=== PATIENT | male | born 1960 | race African-American/Black ===

== ENCOUNTER 2019-05-16 16:22 | Inpatient (IN) ==
--- NOTE | 2019-05-16 16:53 | XRay Report ---
XR chest 1V portable CLINICAL HISTORY: Left-sided chest pain. COMPARISON STUDY: Chest radiograph April 12, 2019. FINDINGS: Lung volumes are normal. Lungs are clear. There is no pneumothorax or pleural effusion. Car diac size is normal. Mediastinal contours are normal. There is no evidence for pulmonary edema. Incid ental note is made of multiple old left-sided rib fractures. IMPRESSION: No acute cardiopulmonary findings. Electronically signed by: Ag Kowalski M.D. 05/16/2019 4:51 PM
[2019-05-16 17:01] LABS: Basophils # (auto) 0.04 K/uL (0-0.2); Basophils % (auto) 0.7 %; Eosinophils % (auto) 1.8 %; Hematocrit (blood only) 35.1 % (42-52); Immature Granulocytes # (auto) 0.01 K/uL (0.00-0.02); Immature Granulocytes % (auto) 0.2 %; Lymphocytes % (auto) 37.4 %; Mean Corpuscular Hemoglobin 27.8 pg (25-34); Mean Corpuscular Hgb Conc 34.2 g/dL (32-36); Mean Corpuscular Volume 81.4 fL (80-100); Mean Platelet Volume 9.3 fL (7.4-10.4); Monocytes % (auto) 7.1 %; Neutrophils # (auto) 2.96 K/uL (1.4-6.5); Neutrophils % (auto) 52.8 %; Platelet Count 222 K/uL (130-400); RDW Coefficient of Variation 14.5 % (11.5-14.5); Red Blood Count 4.31 M/uL (4.7-6.1); White Blood Count 5.61 K/uL (4.8-10.8)
[2019-05-16 17:22] LABS: Alanine Aminotransferase 31 U/L (12-78); Albumin Level 3.6 gm/dl (3.4-5.0); Aspartate Aminotransferase 15 U/L (15-37); BUN Creatinine Ratio 16.1 (10-20); Blood Urea Nitrogen 20 mg/dl (7-18); Calcium 8.8 mg/dl (8.5-10.1); Carbon Dioxide 26 mmol/L (21-32); Chloride 109 mmol/L (98-107); Est GFR (African American) 74.7; Est GFR (Non-African American) 64.5; Glucose 94 mg/dl (70-99); Sodium 140 mmol/L (136-145)
[2019-05-16 17:24] LABS: INR 1.2 (0.9-1.1); Partial Thromboplastin Ratio 1.1; Partial Thromboplastin Time 29.1 Seconds (21.0-31.0); Prothrombin Time 12.2 Seconds (9.0-12.0)
[2019-05-16 17:30] LABS: Alkaline Phosphatase 86 U/L (45-117); Bilirubin,Total 0.4 mg/dl (0.2-1); Globulin 3.7 gm/dl (2.5-4.0); Total Protein 7.3 gm/dl (6.4-8.2); Troponin I < 0.015 ng/ml (0-0.045)
--- NOTE | 2019-05-16 19:33 | History & Physical Report ---
Date of Service May 16, 2019 Assessment & Plan (1) GI bleed: This is a 58 yo M with a PMH of atrial fibrillation on coumadin and GERD from [facility] who presents with chest pain and melena. Please see Dr. Jacob's assessment and plan for details. (2) Chest pain: (3) Atrial fibrillation: (4) GERD (gastroesophageal reflux disease): History of Present Illness Chief Complaint: Chest pain, melena Primary Care Provider: [facility] This is a 58 yo M with a PMH of atrial fibrillation on coumadin and GERD from [facility] who presents with chest pain and melena. States that he has had constant left-sided chest pain for the past 3 weeks that has become progressively worse. Pain is exacerbated with deep inspiration and palpation. Also notes dark tarry stools for the past 2 weeks. Unable to quantify amount but states that they are frequent. Stopped his Coumadin 4 days ago due to bleeding but then took again yesterday thinking that it may alleviate chest pain. Also experiencing diffuse abdominal pain for the past week. Was started on pantoprazole at [place] on Monday to help with acid reflux/abdominal pain, per patient. States he has history of GI bleed in the remote past with multiple hospitalizations requiring blood transfusion. Is unsure what caused bleed in the past. Denies any fever, chills, lightheadedness, headache, visual changes, palpitations, shortness of breath, nausea, vomiting, dysuria, diarrhea, constipation or lower extremity swelling. Denies hematemesis or hematochezia. Denies NSAID use. Allergies Allergy/AdvReac Type Severity Reaction Status Date / Time No Known Allergies Allergy Unverified 05/16/19 18:34 Home Medications Home Medications Medication Instructions Recorded Confirmed Type latanoprost 1 drp OPHTHALMIC (EYE) HS 05/16/19 05/16/19 History metoprolol tartrate 12.5 mg PO BID 05/16/19 05/16/19 History pantoprazole 40 mg PO DAILY 05/16/19 05/16/19 History Past Med/Surg History Medical History Atrial fibrillation (Chronic) GERD (gastroesophageal reflux disease) (Chronic) GI bleed (Acute) Surgical History No history of previous surgery (Chronic) Family History Other Heart disease Social History Preferred Language: Icelandic Beliefs That Will Affect Care: None marital status: single Current Living Situation: Other Current Living Situation Comment: [facility] Feels Safe at Home: Yes Safety Concerns: Feels Safe At This Time Smoking Status: Never smoker Hx Alcohol Use: No Hx Substance Use: No Review of Systems Review of Systems: At least ten systems reviewed and negative except as noted in the HPI. Physical Exam Physical Exam: General Appearance: WD/WN, vitals as above, NAD, sitting up in bed, pleasant, conversing easily with intermittent grimacing Head: normocephalic, atraumatic Eyes: normal inspection, PERRL, conjunctivae normal, anicteric sclerae ENT: external ear and nose normal, oropharynx normal Neck: trachea midline, no thyromegaly normal visual inspection Respiratory: normal respiratory effort, lungs clear to auscultation, no wheeze, rales, rhonchi. Normal insp/exp effort, no accessory muscle use Cardiovascular: irregular rate & rhythm, no murmur appreciated, normal peripheral pulses. Vessels: no JVD or carotid bruit Chest: pain to palpation of left chest, normal inspection of chest Abdomen/GI: normal bowel sounds, soft, diffusely tender, no hepatosplenomegaly Extremities/Musculoskelatal: no cyanosis or clubbing, extremities motor strength 5/5 Neurologic: PERRL, EOMI, accommodation nl, no face palsy, no dysarthria CN's II-XI intact bilaterally and moves all extremities Psychiatric: A+Ox3, euthymic affect Skin: no rashes, normal color, warm/dry Results & Data Vital Signs (Past 12 Hours) Vital Signs Temp Pulse Resp BP Pulse Ox 05/16/19 17:30 87 18 98 05/16/19 17:00 71 19 97 05/16/19 16:39 36.7 C 80 18 124/74 98 05/16/19 16:34 81 20 97 05/16/19 16:30 101 H 19 124/74 98 Laboratory Results Short CBC 05/16/19 Range/Units 16:36 WBC 5.61 (4.8-10.8) K/uL Hgb 12.0 L (14.0-18.0) g/dL Hct 35.1 L (42-52) % Plt Count 222 (130-400) K/uL BMP 05/16/19 16:36 Sodium 140 Potassium 4.0 Chloride 109 H Carbon Dioxide 26 BUN 20 H Creatinine 1.22 Glucose 94 Calcium 8.8 Cardiac Enzymes 05/16/19 Range/Units 16:36 Troponin I < 0.015 (0-0.045) ng/ml Liver Function 05/16/19 Range/Units 16:36 Total Bilirubin 0.4 (0.2-1) mg/dl AST 15 (15-37) U/L ALT 31 (12-78) U/L Alkaline Phosphatase 86 (45-117) U/L Albumin 3.6 (3.4-5.0) gm/dl Diagnostic Findings CXR: IMPRESSION: No acute cardiopulmonary findings. ECG Rhythm: atrial fibrillation Supervising Physician Co-Signing Physician Notes IM ATTENDING : Patient seen and examined. History obtained from patient and records. Preceding documentation by Ms. Elizabeth William PA-C reviewed. FINAL ASSESSMENT AND PLAN as follows : U GIB Subacute (Patient gives history of intermittent dark stools for unrecalled amount of time even before initiation of Coumadin for A. fib last month) Differentials include : Gastritis, PUD, tumor Acute on chronic anemia secondary to above Baseline hemoglobin of 13 from last month Atypical chest pain A. fib, rate controlled Not on any rate controlled medications. Patient refusing Coumadin the last 4days. Past tobacco abuse OBS as per case management PCU IV PPI GI consult RE U GIB Anemia work-up Transfuse PRBC if hemoglobin less than 7 and/or for symptomatic anemia TTE RE chest pain Initiate Lopressor for rate control DVT prophylaxis. SCDs RE U GIB Full code
[2019-05-16] MEDS ORDERED: CONSULT PHARMACY STA (19:35)
[2019-05-16] MEDS: PANTOprazole 40 MG in SYRINGE 0 ML IV SCH (20:08)
[2019-05-16] MEDS ORDERED: NITROGLYCERIN SL 0.4 MG/TAB TAB SL STA (20:14)
[2019-05-16] MEDS ORDERED: NITROGLYCERIN SL 0.4 MG/TAB TAB ONE (20:16)
[2019-05-16 20:29] LABS: Hematocrit (blood only) 35.1 % (42-52); Hemoglobin 11.8 g/dL (14.0-18.0)
[2019-05-16] MEDS ORDERED: TRAMADOL HCL 50 MG TABLET PO STA (20:48)
[2019-05-16] MEDS ORDERED: OPTIRAY 320 125ml IV PRN (21:15)
--- NOTE | 2019-05-16 21:24 | Emergency Department Note ---
Entered by Vasu Sanders acting as a scribe for History of Present Illness General Chief complaint: Chest Pain Source: patient History of Present Illness Onset (ago): month(s) 1 Location: chest and left Pain Consistency: + intermittent Maximum Pain Intensity: 8 Quality: + sharp Associated symptoms: + other (dark stools) The patient is a 58 y/o male who presents to the ED w/ CC of intermittent, sharp, left sided chest pain beginning a month ago. The patient states his pain starts on the left side of his chest and radiates across to his left armpit. He reports if he pushes his chest up with his right hand, it alleviates his symptoms. The patient notes he has a history of a-fib and is on Coumadin and metoprolol. He states he stopped taking the Coumadin 4 days ago because of the dark stool and then took a dose this morning. The patient reports his last BM was yesterday, and it was black. He notes the [place] [facility] started him on Protonix a week ago. The patient states a history of rib fractures on the same side and GERD. He reports he has not been scoped in 8 years. Home Medications Home Medications Medication Instructions Recorded Confirmed Type latanoprost 1 drp OPHTHALMIC (EYE) HS 05/16/19 05/16/19 History metoprolol tartrate 12.5 mg PO BID 05/16/19 05/16/19 History pantoprazole 40 mg PO DAILY 05/16/19 05/16/19 History Allergies Allergy/AdvReac Type Severity Reaction Status Date / Time No Known Allergies Allergy Unverified 05/16/19 18:34 Past Med/Surg History Medical History Atrial fibrillation (Chronic) GERD (gastroesophageal reflux disease) (Chronic) GI bleed (Acute) Surgical History No history of previous surgery (Chronic) Family History Other Heart disease Social History Preferred Language: Czech Beliefs That Will Affect Care: None marital status: single Current Living Situation: Other Current Living Situation Comment: [facility] Feels Safe at Home: Yes Safety Concerns: Feels Safe At This Time Smoking Status: Never smoker Hx Alcohol Use: No Hx Substance Use: No Review of Systems See HPI for pertinent positives & negatives. and A total of 10 systems reviewed and were otherwise negative Physical Exam Vital Signs Vital Signs - 24 hr 05/16/19 16:30 05/16/19 16:34 05/16/19 16:39 Temperature 36.7 C Temperature Source Oral Sepsis Recent Fever Within 48 Hours No Sepsis Action Taken by Nursing No Action Required Pulse Rate 101 H 81 80 Pulse Rate from SpO2 Sensor 86 Respiratory Rate 19 20 18 Blood Pressure 124/74 124/74 Blood Pressure Mean 90 90 Pulse Oximetry 98 97 98 05/16/19 17:00 05/16/19 17:30 05/16/19 19:28 Temperature Temperature Source Sepsis Recent Fever Within 48 Hours Sepsis Action Taken by Nursing Pulse Rate 71 87 Pulse Rate from SpO2 Sensor 68 81 91 H Respiratory Rate 19 18 Blood Pressure Blood Pressure Mean Pulse Oximetry 97 98 95 05/16/19 19:30 Temperature Temperature Source Sepsis Recent Fever Within 48 Hours Sepsis Action Taken by Nursing Pulse Rate 86 Pulse Rate from SpO2 Sensor 77 Respiratory Rate 15 Blood Pressure 124/84 Blood Pressure Mean 97 Pulse Oximetry 98 Vital signs reviewed. General: Generally well-appearing 58 y/o male, in some distress. HEENT: No scleral icterus, PERRLA, neck supple. Atraumatic. Cardiovascular: Regular rate and rhythm, no extra sounds. Chest: Tenderness to palpation over the left chest wall. Pulmonary: Clear to auscultation bilaterally, normal work of breathing. Abdomen: Soft, nondistended, positive bowel sounds. Upper abdominal tenderness to palpation, no rebound or guarding Musculoskeletal: Atraumatic, no peripheral edema. Rectal: Guaiac positive melanotic stool. Neurologic: Patient awake alert and oriented x 3 Skin: Warm, dry, no rash Course 1657: Past medical records reviewed. The patient was evaluated in room C07 by the medical student under my supervision. A complete history and physical exam ination was performed. 1740: Past medical records reviewed. The patient was evaluated in room C07 by me. A complete history and physical examination was performed. 1840: I reviewed the patient's case with Elizabeth William PA-C, [facility] Hospitalist. He will evaluate the patient for further management. 1842: Upon reevaluation, the patient is resting comfortably. I discussed laboratory and radiographic results with him. He verbalized agreement of the treatment plan. The patient will be evaluated for further management and care. Administered Medications Acetaminophen (Tylenol) 650 mg PO Q4H PRN PRN Reason: Pain or Fever Stop: 06/15/19 22:54 Last Admin: 05/18/19 08:44 Dose: 650 mg Documented by: [id number] Acetaminophen/Butalbital/Caffeine (Fioricet) 1 tab PO Q4H PRN PRN Reason: Headache Stop: 06/17/19 10:43 Last Admin: 05/18/19 12:55 Dose: 1 tab Documented by: [id number] Gadobutrol (Gadavist 65ml) 6.5 ml IV ONCE PRN PRN Reason: Interaction Checking Stop: 05/24/19 16:26 Last Admin: 05/20/19 16:28 Dose: 6.5 ml Documented by: [id number] Glucose (Dex4 Glucose) 4 - 8 tabs PO UD PRN; Protocol PRN Reason: Hypoglycemia Protocol Stop: 06/19/19 08:50 Last Admin: 05/20/19 09:13 Dose: 4 tabs Documented by: [id number] Pantoprazole Sodium 40 mg/ (Syringe) 10 mls @ 5 mls/min IV BID TRISTA Stop: 06/15/19 19:59 Last Admin: 05/20/19 08:40 Dose: 5 mls/min Documented by: [id number] Admin: 05/19/19 20:29 Dose: 5 mls/min Documented by: [id number] Admin: 05/19/19 08:14 Dose: 5 mls/min Documented by: [id number] Admin: 05/18/19 20:37 Dose: 5 mls/min Documented by: [id number] Admin: 05/18/19 07:39 Dose: 5 mls/min Documented by: [id number] Admin: 05/17/19 20:57 Dose: 5 mls/min Documented by: [id number] Admin: 05/17/19 10:41 Dose: 5 mls/min Documented by: [id number] Admin: 05/16/19 20:08 Dose: 5 mls/min Documented by: [id number] Lactated Ringer's (Lr) 1,000 mls @ 50 mls/hr IV .Q20H TRISTA Stop: 06/15/19 20:14 Last Admin: 05/20/19 05:24 Dose: 50 mls/hr Documented by: [id number] Infusion: 05/20/19 05:23 Dose: 0 mls/hr Documented by: [id number] Admin: 05/19/19 09:17 Dose: 50 mls/hr Documented by: [id number] Infusion: 05/19/19 09:17 Dose: 50 mls/hr Documented by: [id number] Admin: 05/18/19 12:55 Dose: 50 mls/hr Documented by: [id number] Infusion: 05/18/19 12:55 Dose: 50 mls/hr Documented by: [id number] Admin: 05/17/19 20:56 Dose: 50 mls/hr Documented by: [id number] Infusion: 05/17/19 19:35 Dose: 50 mls/hr Documented by: [id number] Admin: 05/16/19 23:35 Dose: 50 mls/hr Documented by: [id number] Acetaminophen (Ofirmev) 1,000 mg in 100 mls @ 400 mls/hr IV Q8H PRN PRN Reason: Pain Stop: 06/17/19 13:26 Last Infusion: 05/20/19 08:01 Dose: 0 mls/hr Documented by: [id number] Admin: 05/20/19 07:46 Dose: 400 mls/hr Documented by: [id number] Infusion: 05/19/19 20:45 Dose: 0 mls/hr Documented by: [id number] Admin: 05/19/19 20:30 Dose: 400 mls/hr Documented by: [id number] Latanoprost (Xalatan Oph) 1 drops OP HS TRISTA Stop: 06/15/19 22:54 Last Admin: 05/19/19 20:29 Dose: 1 drops Documented by: [id number] Admin: 05/18/19 20:37 Dose: 1 drops Documented by: [id number] Admin: 05/17/19 20:56 Dose: 1 drops Documented by: [id number] Admin: 05/16/19 23:42 Dose: Not Given Documented by: [id number] Metoprolol Tartrate (Lopressor) 12.5 mg PO BID TRISTA Stop: 06/15/19 22:59 Last Admin: 05/20/19 08:41 Dose: 12.5 mg Documented by: [id number] Admin: 05/19/19 20:29 Dose: 12.5 mg Documented by: [id number] Admin: 05/19/19 08:13 Dose: Not Given Documented by: [id number] Admin: 05/18/19 20:37 Dose: 12.5 mg Documented by: [id number] Admin: 05/18/19 07:40 Dose: 12.5 mg Documented by: [id number] Admin: 05/17/19 20:56 Dose: 12.5 mg Documented by: [id number] Admin: 05/17/19 10:42 Dose: 12.5 mg Documented by: [id number] Admin: 05/16/19 23:42 Dose: 12.5 mg Documented by: [id number] Morphine Sulfate (Morphine Sulfate) 4 mg IV Q6H PRN PRN Reason: Pain Stop: 05/30/19 22:54 Last Admin: 05/20/19 03:59 Dose: 4 mg Documented by: [id number] Admin: 05/19/19 14:24 Dose: 4 mg Documented by: [id number] Admin: 05/19/19 08:15 Dose: 4 mg Documented by: [id number] Admin: 05/18/19 20:45 Dose: 4 mg Documented by: [id number] Admin: 05/17/19 18:37 Dose: 4 mg Documented by: [id number] Admin: 05/17/19 10:51 Dose: 4 mg Documented by: [id number] Admin: 05/17/19 01:04 Dose: 4 mg Documented by: [id number] Discontinued Medications Bisacodyl (Dulcolax) 20 mg PO ONE ONE Stop: 05/19/19 15:01 Last Admin: 05/19/19 14:23 Dose: 20 mg Documented by: [id number] Dextrose (Dextrose 50%) 50 ml IV NOW ONE Stop: 05/20/19 11:49 Last Admin: 05/20/19 11:58 Dose: 50 ml Documented by: [id number] Ioversol (Optiray 320 125ml) 118 ml IV ONCE PRN PRN Reason: Interaction Checking Stop: 05/20/19 21:14 Last Admin: 05/16/19 21:16 Dose: 118 ml Documented by: [id number] Nitroglycerin (Nitrostat) 0.4 mg SL NOW STA Stop: 05/16/19 20:15 Last Admin: 05/16/19 20:55 Dose: Not Given Documented by: [id number] Nitroglycerin (Nitrostat) Confirm Administered Dose 0.4 mg .ROUTE .STK-MED ONE Stop: 05/16/19 20:17 Last Admin: 05/16/19 20:18 Dose: 0.4 mg Documented by: [id number] Polyethylene Glycol/Electrolytes (Golytely) 8 dose PO TODAY@1500 TRISTA Stop: 05/20/19 08:00 Last Admin: 05/19/19 15:59 Dose: 16 dose Documented by: [id number] Tramadol HCl (Ultram) 25 mg PO NOW STA Stop: 05/16/19 20:49 Last Admin: 05/16/19 21:01 Dose: 25 mg Documented by: [id number] Medical Decision Making Differential Diagnosis Differential diagnosis includes etiologies such as diverticulosis, AVM, coagulopathy, colitis, inflammatory bowel disease, malignancy, Barby-Salgado tear, esophagitis, peptic ulcer disease, variceal bleed, gastritis, epistaxis, fissure, hemorrhoids, as well as others were entertained. Medical Records Attestation: I reviewed the patient's medical records. Home Medications Current Medication List: was personally reviewed by me Laboratory Data Attestation: I reviewed the patient's lab results. Result diagrams: 05/20/19 07:09 05/20/19 07:09 Lab Results 05/16/19 05/16/19 05/16/19 Range/Units 16:36 16:36 16:36 WBC 5.61 (4.8-10.8) K/uL RBC 4.31 L (4.7-6.1) M/uL Hgb 12.0 L (14.0-18.0) g/dL Hct 35.1 L (42-52) % MCV 81.4 (80-100) fL MCH 27.8 (25-34) pg MCHC 34.2 (32-36) g/dL RDW Std Deviation 43.0 (36.4-46.3) fL RDW Coeff of Brody 14.5 (11.5-14.5) % Plt Count 222 (130-400) K/uL MPV 9.3 (7.4-10.4) fL Immature Gran % (Auto) 0.2 % Neut % (Auto) 52.8 % Lymph % (Auto) 37.4 % [place] % (Auto) 7.1 % Eos % (Auto) 1.8 % Baso % (Auto) 0.7 % Reticulocyte % (Auto) (0.5-2.0) % Immature Gran # (Auto) 0.01 (0.00-0.02) K/uL Neut # (Auto) 2.96 (1.4-6.5) K/uL Lymph # (Auto) 2.10 (1.2-3.4) K/uL [place] # (Auto) 0.40 (0.11-0.59) K/uL Eos # (Auto) 0.10 (0-0.5) K/uL Baso # (Auto) 0.04 (0-0.2) K/uL Reticulocyte # (0.02-0.10) 10^6/uL ESR (0-14) mm/hr PT 12.2 H (9.0-12.0) Seconds INR 1.2 H (0.9-1.1) APTT 29.1 (21.0-31.0) Seconds PTT Ratio 1.1 Sodium 140 (136-145) mmol/L Potassium 4.0 (3.5-5.1) mmol/L Chloride 109 H (98-107) mmol/L Carbon Dioxide 26 (21-32) mmol/L Anion Gap 5.0 (3-11) BUN 20 H (7-18) mg/dl Creatinine 1.22 (0.6-1.4) mg/dl Est Cr Clr Drug Dosing 61.0 ml/min Est GFR ( Amer) 74.7 Est GFR (Non-Af Amer) 64.5 BUN/Creatinine Ratio 16.1 (10-20) Glucose 94 (70-99) mg/dl Calcium 8.8 (8.5-10.1) mg/dl Magnesium (1.8-2.4) mg/dl Iron (35-175) mcg/dl TIBC (250-450) mcg/dl Transferrin (200-360) mg/dl Ferritin (8-388) ng/ml Total Bilirubin 0.4 (0.2-1) mg/dl AST 15 (15-37) U/L ALT 31 (12-78) U/L Alkaline Phosphatase 86 (45-117) U/L Troponin I < 0.015 (0-0.045) ng/ml C-Reactive Protein (0-0.29) mg/dl Total Protein 7.3 (6.4-8.2) gm/dl Albumin 3.6 (3.4-5.0) gm/dl Globulin 3.7 (2.5-4.0) gm/dl Albumin/Globulin Ratio 1.0 (0.9-2) Lipase (73-393) U/L Vitamin B12 (211-911) pg/ml Folate (>5.38) ng/ml Urine Color Urine Appearance (Clear) Urine pH (4.5-7.5) Ur Specific [place] (1.000-1.030) Urine Protein (Negative) Urine Glucose (UA) (Negative) Urine Ketones (Negative) Urine Blood (Negative) Urine Nitrite (Negative) Urine Bilirubin (Negative) Urine Urobilinogen (Negative) Ur Leukocyte Esterase (Negative) Nasal Screen MRSA (PCR) (Negative) Hepatitis C Ab Screen (Neg) Blood Type Antibody Screen 05/16/19 05/16/19 05/16/19 Range/Units 20:15 20:15 20:15 WBC (4.8-10.8) K/uL RBC (4.7-6.1) M/uL Hgb 11.8 L (14.0-18.0) g/dL Hct 35.1 L (42-52) % MCV (80-100) fL MCH (25-34) pg MCHC (32-36) g/dL RDW Std Deviation (36.4-46.3) fL RDW Coeff of Brody (11.5-14.5) % Plt Count (130-400) K/uL MPV (7.4-10.4) fL Immature Gran % (Auto) % Neut % (Auto) % Lymph % (Auto) % [place] % (Auto) % Eos % (Auto) % Baso % (Auto) % Reticulocyte % (Auto) (0.5-2.0) % Immature Gran # (Auto) (0.00-0.02) K/uL Neut # (Auto) (1.4-6.5) K/uL Lymph # (Auto) (1.2-3.4) K/uL [place] # (Auto) (0.11-0.59) K/uL Eos # (Auto) (0-0.5) K/uL Baso # (Auto) (0-0.2) K/uL Reticulocyte # (0.02-0.10) 10^6/uL ESR (0-14) mm/hr PT (9.0-12.0) Seconds INR (0.9-1.1) APTT (21.0-31.0) Seconds PTT Ratio Sodium (136-145) mmol/L Potassium (3.5-5.1) mmol/L Chloride (98-107) mmol/L Carbon Dioxide (21-32) mmol/L Anion Gap (3-11) BUN (7-18) mg/dl Creatinine (0.6-1.4) mg/dl Est Cr Clr Drug Dosing ml/min Est GFR ( Amer) Est GFR (Non-Af Amer) BUN/Creatinine Ratio (10-20) Glucose (70-99) mg/dl Calcium (8.5-10.1) mg/dl Magnesium 2.0 (1.8-2.4) mg/dl Iron (35-175) mcg/dl TIBC (250-450) mcg/dl Transferrin (200-360) mg/dl Ferritin (8-388) ng/ml Total Bilirubin (0.2-1) mg/dl AST (15-37) U/L ALT (12-78) U/L Alkaline Phosphatase (45-117) U/L Troponin I (0-0.045) ng/ml C-Reactive Protein (0-0.29) mg/dl Total Protein (6.4-8.2) gm/dl Albumin (3.4-5.0) gm/dl Globulin (2.5-4.0) gm/dl Albumin/Globulin Ratio (0.9-2) Lipase 72 L (73-393) U/L Vitamin B12 (211-911) pg/ml Folate (>5.38) ng/ml Urine Color Urine Appearance (Clear) Urine pH (4.5-7.5) Ur Specific [place] (1.000-1.030) Urine Protein (Negative) Urine Glucose (UA) (Negative) Urine Ketones (Negative) Urine Blood (Negative) Urine Nitrite (Negative) Urine Bilirubin (Negative) Urine Urobilinogen (Negative) Ur Leukocyte Esterase (Negative) Nasal Screen MRSA (PCR) (Negative) Hepatitis C Ab Screen (Neg) Blood Type O Positive Antibody Screen NEGATIVE 05/16/19 05/17/19 05/17/19 Range/Units Unknown 03:30 05:45 WBC (4.8-10.8) K/uL RBC (4.7-6.1) M/uL Hgb (14.0-18.0) g/dL Hct (42-52) % MCV (80-100) fL MCH (25-34) pg MCHC (32-36) g/dL RDW Std Deviation (36.4-46.3) fL RDW Coeff of Brody (11.5-14.5) % Plt Count (130-400) K/uL MPV (7.4-10.4) fL Immature Gran % (Auto) % Neut % (Auto) % Lymph % (Auto) % [place] % (Auto) % Eos % (Auto) % Baso % (Auto) % Reticulocyte % (Auto) (0.5-2.0) % Immature Gran # (Auto) (0.00-0.02) K/uL Neut # (Auto) (1.4-6.5) K/uL Lymph # (Auto) (1.2-3.4) K/uL [place] # (Auto) (0.11-0.59) K/uL Eos # (Auto) (0-0.5) K/uL Baso # (Auto) (0-0.2) K/uL Reticulocyte # (0.02-0.10) 10^6/uL ESR (0-14) mm/hr PT (9.0-12.0) Seconds INR (0.9-1.1) APTT (21.0-31.0) Seconds PTT Ratio Sodium (136-145) mmol/L Potassium (3.5-5.1) mmol/L Chloride (98-107) mmol/L Carbon Dioxide (21-32) mmol/L Anion Gap (3-11) BUN (7-18) mg/dl Creatinine (0.6-1.4) mg/dl Est Cr Clr Drug Dosing ml/min Est GFR ( Amer) Est GFR (Non-Af Amer) BUN/Creatinine Ratio (10-20) Glucose (70-99) mg/dl Calcium (8.5-10.1) mg/dl Magnesium (1.8-2.4) mg/dl Iron (35-175) mcg/dl TIBC (250-450) mcg/dl Transferrin (200-360) mg/dl Ferritin (8-388) ng/ml Total Bilirubin (0.2-1) mg/dl AST (15-37) U/L ALT (12-78) U/L Alkaline Phosphatase (45-117) U/L Troponin I (0-0.045) ng/ml C-Reactive Protein (0-0.29) mg/dl Total Protein (6.4-8.2) gm/dl Albumin (3.4-5.0) gm/dl Globulin (2.5-4.0) gm/dl Albumin/Globulin Ratio (0.9-2) Lipase (73-393) U/L Vitamin B12 (211-911) pg/ml Folate (>5.38) ng/ml Urine Color Yellow Urine Appearance Clear (Clear) Urine pH 5.5 (4.5-7.5) Ur Specific [place] > 1.045 H (1.000-1.030) Urine Protein Negative (Negative) Urine Glucose (UA) Negative (Negative) Urine Ketones Negative (Negative) Urine Blood Negative (Negative) Urine Nitrite Negative (Negative) Urine Bilirubin Negative (Negative) Urine Urobilinogen Negative (Negative) Ur Leukocyte Esterase Negative (Negative) Nasal Screen MRSA (PCR) Negative (Negative) Hepatitis C Ab Screen Neg (Neg) Blood Type Antibody Screen 05/17/19 05/17/19 05/17/19 Range/Units 05:45 05:45 05:45 WBC 4.68 L (4.8-10.8) K/uL RBC 4.44 L (4.7-6.1) M/uL Hgb 12.4 L (14.0-18.0) g/dL Hct 36.1 L (42-52) % MCV 81.3 (80-100) fL MCH 27.9 (25-34) pg MCHC 34.3 (32-36) g/dL RDW Std Deviation 42.8 (36.4-46.3) fL RDW Coeff of Brody 14.5 (11.5-14.5) % Plt Count 195 (130-400) K/uL MPV 9.1 (7.4-10.4) fL Immature Gran % (Auto) 0.0 % Neut % (Auto) 43.1 % Lymph % (Auto) 45.9 % [place] % (Auto) 7.1 % Eos % (Auto) 2.8 % Baso % (Auto) 1.1 % Reticulocyte % (Auto) 1.6 (0.5-2.0) % Immature Gran # (Auto) 0.00 (0.00-0.02) K/uL Neut # (Auto) 2.02 (1.4-6.5) K/uL Lymph # (Auto) 2.15 (1.2-3.4) K/uL [place] # (Auto) 0.33 (0.11-0.59) K/uL Eos # (Auto) 0.13 (0-0.5) K/uL Baso # (Auto) 0.05 (0-0.2) K/uL Reticulocyte # 0.07 (0.02-0.10) 10^6/uL ESR (0-14) mm/hr PT (9.0-12.0) Seconds INR (0.9-1.1) APTT (21.0-31.0) Seconds PTT Ratio Sodium 139 (136-145) mmol/L Potassium 4.3 (3.5-5.1) mmol/L Chloride 108 H (98-107) mmol/L Carbon Dioxide 28 (21-32) mmol/L Anion Gap 3.0 (3-11) BUN 17 (7-18) mg/dl Creatinine 1.17 (0.6-1.4) mg/dl Est Cr Clr Drug Dosing 63.6 ml/min Est GFR ( Amer) 78.6 Est GFR (Non-Af Amer) 67.8 BUN/Creatinine Ratio 14.6 (10-20) Glucose 83 (70-99) mg/dl Calcium 8.6 (8.5-10.1) mg/dl Magnesium (1.8-2.4) mg/dl Iron 106 (35-175) mcg/dl TIBC 273 (250-450) mcg/dl Transferrin 233 (200-360) mg/dl Ferritin 166.0 (8-388) ng/ml Total Bilirubin (0.2-1) mg/dl AST (15-37) U/L ALT (12-78) U/L Alkaline Phosphatase (45-117) U/L Troponin I < 0.015 (0-0.045) ng/ml C-Reactive Protein (0-0.29) mg/dl Total Protein (6.4-8.2) gm/dl Albumin (3.4-5.0) gm/dl Globulin (2.5-4.0) gm/dl Albumin/Globulin Ratio (0.9-2) Lipase (73-393) U/L Vitamin B12 528 (211-911) pg/ml Folate 13.28 (>5.38) ng/ml Urine Color Urine Appearance (Clear) Urine pH (4.5-7.5) Ur Specific [place] (1.000-1.030) Urine Protein (Negative) Urine Glucose (UA) (Negative) Urine Ketones (Negative) Urine Blood (Negative) Urine Nitrite (Negative) Urine Bilirubin (Negative) Urine Urobilinogen (Negative) Ur Leukocyte Esterase (Negative) Nasal Screen MRSA (PCR) (Negative) Hepatitis C Ab Screen (Neg) Blood Type Antibody Screen 05/17/19 05/17/19 05/17/19 Range/Units 05:45 05:45 11:51 WBC (4.8-10.8) K/uL RBC (4.7-6.1) M/uL Hgb 13.3 L (14.0-18.0) g/dL Hct 39.5 L (42-52) % MCV (80-100) fL MCH (25-34) pg MCHC (32-36) g/dL RDW Std Deviation (36.4-46.3) fL RDW Coeff of Brody (11.5-14.5) % Plt Count (130-400) K/uL MPV (7.4-10.4) fL Immature Gran % (Auto) % Neut % (Auto) % Lymph % (Auto) % [place] % (Auto) % Eos % (Auto) % Baso % (Auto) % Reticulocyte % (Auto) (0.5-2.0) % Immature Gran # (Auto) (0.00-0.02) K/uL Neut # (Auto) (1.4-6.5) K/uL Lymph # (Auto) (1.2-3.4) K/uL [place] # (Auto) (0.11-0.59) K/uL Eos # (Auto) (0-0.5) K/uL Baso # (Auto) (0-0.2) K/uL Reticulocyte # (0.02-0.10) 10^6/uL ESR 41 H (0-14) mm/hr PT (9.0-12.0) Seconds INR (0.9-1.1) APTT (21.0-31.0) Seconds PTT Ratio Sodium (136-145) mmol/L Potassium (3.5-5.1) mmol/L Chloride (98-107) mmol/L Carbon Dioxide (21-32) mmol/L Anion Gap (3-11) BUN (7-18) mg/dl Creatinine (0.6-1.4) mg/dl Est Cr Clr Drug Dosing ml/min Est GFR ( Amer) Est GFR (Non-Af Amer) BUN/Creatinine Ratio (10-20) Glucose (70-99) mg/dl Calcium (8.5-10.1) mg/dl Magnesium (1.8-2.4) mg/dl Iron (35-175) mcg/dl TIBC (250-450) mcg/dl Transferrin (200-360) mg/dl Ferritin (8-388) ng/ml Total Bilirubin (0.2-1) mg/dl AST (15-37) U/L ALT (12-78) U/L Alkaline Phosphatase (45-117) U/L Troponin I (0-0.045) ng/ml C-Reactive Protein 0.42 H (0-0.29) mg/dl Total Protein (6.4-8.2) gm/dl Albumin (3.4-5.0) gm/dl Globulin (2.5-4.0) gm/dl Albumin/Globulin Ratio (0.9-2) Lipase (73-393) U/L Vitamin B12 (211-911) pg/ml Folate (>5.38) ng/ml Urine Color Urine Appearance (Clear) Urine pH (4.5-7.5) Ur Specific [place] (1.000-1.030) Urine Protein (Negative) Urine Glucose (UA) (Negative) Urine Ketones (Negative) Urine Blood (Negative) Urine Nitrite (Negative) Urine Bilirubin (Negative) Urine Urobilinogen (Negative) Ur Leukocyte Esterase (Negative) Nasal Screen MRSA (PCR) (Negative) Hepatitis C Ab Screen (Neg) Blood Type Antibody Screen 05/17/19 05/18/19 05/18/19 Range/Units 18:31 05:34 05:34 WBC 6.03 (4.8-10.8) K/uL RBC 4.84 (4.7-6.1) M/uL Hgb 12.0 L 13.2 L (14.0-18.0) g/dL Hct 35.5 L 39.3 L (42-52) % MCV 81.2 (80-100) fL MCH 27.3 (25-34) pg MCHC 33.6 (32-36) g/dL RDW Std Deviation 42.2 (36.4-46.3) fL RDW Coeff of Brody 14.3 (11.5-14.5) % Plt Count 221 (130-400) K/uL MPV 9.4 (7.4-10.4) fL Immature Gran % (Auto) % Neut % (Auto) % Lymph % (Auto) % [place] % (Auto) % Eos % (Auto) % Baso % (Auto) % Reticulocyte % (Auto) (0.5-2.0) % Immature Gran # (Auto) (0.00-0.02) K/uL Neut # (Auto) (1.4-6.5) K/uL Lymph # (Auto) (1.2-3.4) K/uL [place] # (Auto) (0.11-0.59) K/uL Eos # (Auto) (0-0.5) K/uL Baso # (Auto) (0-0.2) K/uL Reticulocyte # (0.02-0.10) 10^6/uL ESR (0-14) mm/hr PT (9.0-12.0) Seconds INR (0.9-1.1) APTT (21.0-31.0) Seconds PTT Ratio Sodium 136 (136-145) mmol/L Potassium 4.1 (3.5-5.1) mmol/L Chloride 102 (98-107) mmol/L Carbon Dioxide 27 (21-32) mmol/L Anion Gap 7.0 (3-11) BUN 16 (7-18) mg/dl Creatinine 1.31 (0.6-1.4) mg/dl Est Cr Clr Drug Dosing 56.8 ml/min Est GFR ( Amer) 68.6 Est GFR (Non-Af Amer) 59.2 BUN/Creatinine Ratio 12.2 (10-20) Glucose 91 (70-99) mg/dl Calcium 8.7 (8.5-10.1) mg/dl Magnesium (1.8-2.4) mg/dl Iron (35-175) mcg/dl TIBC (250-450) mcg/dl Transferrin (200-360) mg/dl Ferritin (8-388) ng/ml Total Bilirubin (0.2-1) mg/dl AST (15-37) U/L ALT (12-78) U/L Alkaline Phosphatase (45-117) U/L Troponin I (0-0.045) ng/ml C-Reactive Protein (0-0.29) mg/dl Total Protein (6.4-8.2) gm/dl Albumin (3.4-5.0) gm/dl Globulin (2.5-4.0) gm/dl Albumin/Globulin Ratio (0.9-2) Lipase (73-393) U/L Vitamin B12 (211-911) pg/ml Folate (>5.38) ng/ml Urine Color Urine Appearance (Clear) Urine pH (4.5-7.5) Ur Specific [place] (1.000-1.030) Urine Protein (Negative) Urine Glucose (UA) (Negative) Urine Ketones (Negative) Urine Blood (Negative) Urine Nitrite (Negative) Urine Bilirubin (Negative) Urine Urobilinogen (Negative) Ur Leukocyte Esterase (Negative) Nasal Screen MRSA (PCR) (Negative) Hepatitis C Ab Screen (Neg) Blood Type Antibody Screen Imaging Data Radiologist's Impression: Radiology results as stated below per my review and the radiologist's interpretation: XR chest 1V portable CLINICAL HISTORY: Left-sided chest pain. COMPARISON STUDY: Chest radiograph April 12, 2019. FINDINGS: Lung volumes are normal. Lungs are clear. There is no pneumothorax or pleural effusion. Cardiac size is normal. Mediastinal contours are normal. There is no evidence for pulmonary edema. Incidental note is made of multiple old left-sided rib fractures. IMPRESSION: No acute cardiopulmonary findings. Electronically signed by: Ag Kowalski M.D. 05/16/2019 4:51 PM ECG Data Attestation: I personally reviewed and interpreted this ECG as follows: Indication: chest pain Rate (beats per minute): 103 Rhythm: atrial fibrillation (with RVR) Findings: + other (aberrantly conducted complexes, QTc 487); no ST depression, no ST elevation and no acute ischemic change Blood Pressure Blood Pressure Findings: Elevated blood pressure Blood Pressure Disposition: further management by hospitalist MDM Narrative This patient was evaluated and appeared to be in no significant distress. IV access was obtained and laboratory work was drawn. Patient is found to be in atrial fibrillation with RVR 103 bpm. IV hydration was initiated due to complaints of diarrhea. Stool is guaiac positive. IV Protonix was initiated on the patient. Type and cross was obtained. Patient's laboratory work reveals a hemoglobin of 12. Troponin is negative. Given the patient's complaints of epigastric pain with GI bleeding, patient will be evaluated by the hospitalist service for further management. He remained stable throughout his ED stay. Impression & Plan Acute upper gastrointestinal bleeding, Abdominal pain, epigastric, Atrial fibrillation Discharge Plan Visit Data *Final* Discharge Date/Time: 05/16/19 22:36 Chief Complaint: Chest Pain ED Provider: Janiya Douglass Discharge Problem: Acute upper gastrointestinal bleeding, Abdominal pain, epigastric, Atrial fibrillation Patient Disposition: Admitted As Inpatient Discharge Instructions Interventions: ED Discharge Assessment Last Done: 05/16/19 22:36 Discharge Problem: Atrial fibrillation Qualifiers: Atrial fibrillation type: chronic Qualified Code(s): I48.2 - Chronic atrial fibrillation The scribe's documentation has been prepared under my direction and personally reviewed by me in its entirety. I confirm that the note above accurately reflects all work, treatment, procedures, and medical decision making performed by me.
--- NOTE | 2019-05-16 21:34 | CT Scan Report ---
CT OF THE HEAD WITHOUT CONTRAST CLINICAL HISTORY: Headache. COMPARISON STUDY: No previous studies for comparison. CT DOSE: 1283.48 mGy.cm TECHNIQUE: Helical axial images of the head were obtained without IV contrast. Automated exposure con trol was utilized for the study. A dose lowering technique was utilized adhering to the principles o f ALARA. FINDINGS: No acute intracranial hemorrhage, midline shift or mass effect is present. The ventricular system is unremarkable. The basilar cisterns are patent. No extra-axial collections are present. Ther e are no findings to suggest acute dural sinus thrombosis or acute territorial infarct. No significan t calvarial abnormalities are present. Visualized portions of the sinuses and mastoid air cells are c lear. IMPRESSION: No acute intracranial findings. Electronically signed by: Ag Kowalski M.D. 05/16/2019 9:33 PM
--- NOTE | 2019-05-16 21:44 | CT Scan Report ---
CT ANGIOGRAPHY OF THE CHEST, PULMONARY EMBOLUS PROTOCOL CLINICAL HISTORY: Chest pain and shortness of breath. Evaluate for pulmonary embolus. COMPARISON STUDY: Chest radiograph April 12, 2019 and May 16, 2019 TECHNIQUE: Following IV administration of 118 mL of Optiray-320, helical axial images of the chest we re obtained utilizing the pulmonary embolus protocol. Maximal intensity projections and sagittal and coronal reformats were viewed on an independent 3D workstation. IV contrast was administered withou t complication. Automated exposure control was utilized for the study. A dose lowering technique wa s utilized adhering to the principles of ALARA. FINDINGS: No pulmonary emboli are identified. The heart is mildly enlarged. There is no pericardial effusion. The thoracic aorta is suboptimally assessed and not opacified. The caliber of the thoracic aorta is normal. There is no pneumothorax or pleural effusion. There is no consolidation to suggest p neumonia. Mild emphysema is noted. The central airways are patent. Numerous old healed left rib fract ures are noted. No acute rib fractures are identified. There is no acute thoracic spine fracture. IMPRESSION: 1. No pulmonary emboli identified. 2. Mild cardiomegaly. 3. Mild emphysema. Electronically signed by: Ag Kowalski M.D. 05/16/2019 9:43 PM
--- NOTE | 2019-05-16 22:04 | CT Scan Report ---
CT OF THE ABDOMEN AND PELVIS WITH CONTRAST CLINICAL HISTORY: Mid abdominal pain. COMPARISON STUDY: None. TECHNIQUE: Following IV administration of 118 mL of Optiray-320, axial images of the abdomen and pelv is were obtained from the lung bases to the proximal femurs. Images were reviewed in the axial, sagit hoang, and coronal planes. IV contrast was administered without complication. Automated exposure contr ol was utilized for the study. A dose lowering technique was utilized adhering to the principles of ALARA. FINDINGS: Cardiomegaly is noted. Multiple old, healed left rib fractures are present. The liver, sple en, adrenal glands and pancreas are unremarkable. There is no biliary or pancreatic ductal dilatation . A low-attenuation lesion within the upper pole of the right kidney is benign. There is no hydroneph rosis. There is moderate plaque of the aortoiliac system. There is no aneurysmal dilatation. Evaluati on is difficult given a paucity of fat. A small amount of ascites within the pelvis is noted. The lester endix is normal. There is colonic diverticulosis without evidence for acute diverticulitis. No pneuma tosis, free air or portal venous gas is present. There is no evidence for a bowel obstruction. A mode rate amount of stool within the colon is noted. A lipoma within left paraspinal musculature is incide ntally noted. IMPRESSION: 1. Small amount of ascites within the pelvis. 2. Normal appendix. No bowel obstruction. 3. Difficult study to interpret given paucity of intraabdominal fat and lack of oral contrast. 4. Moderate aortoiliac atherosclerotic plaque. No aneurysmal dilatation. Electronically signed by: Ag Kowalski M.D. 05/16/2019 10:03 PM
[2019-05-16] MEDS ORDERED: PROMETHAZINE HCL 12.5 MG in SODIUM CHLORIDE 0.9% 50 ML IV PRN (22:55)
[2019-05-16] MEDS ORDERED: ACETAMINOPHEN 325 MG TAB PO PRN (22:55)
[2019-05-16] MEDS ORDERED: NITROGLYCERIN SL 0.4 MG/TAB TAB SL PRN (22:55)
[2019-05-16] MEDS ORDERED: LORazepam 0.25 MG/0.5 ML VIAL IV PRN (22:55)
[2019-05-16] MEDS ORDERED: METOPROLOL TARTRATE 25 MG TAB PO SCH (22:55)
[2019-05-16] MEDS: LACTATED RINGER'S 1,000 ML IV SCH (23:35)
[2019-05-16] MEDS: LATANOPROST 0.005% OP SOLN 2.5 ML BTL OP SCH (23:42)
[2019-05-16] MEDS: METOPROLOL TARTRATE 25 MG TAB PO SCH (23:42)
[2019-05-17] MEDS: MoRPHine SULFATE 4 MG/ML 1 ML CARP\\VIAL IV PRN ×3 (01:04→18:37)
[2019-05-17 03:44] LABS: Appearance Urine Clear (Clear); Bilirubin Urine Negative (Negative); Blood Urine Negative (Negative); Color Urine Yellow; Glucose Urine UA Negative (Negative); Ketones Urine Negative (Negative); Leukocyte Esterase Urine Negative (Negative); Nitrite Urine Negative (Negative); Protein Urine Negative (Negative); Specific Gravity Urine > 1.045 (1.000-1.030); Urobilinogen Urine Negative (Negative); pH Urine 5.5 (4.5-7.5)
[2019-05-17 06:05] LABS: Basophils # (auto) 0.05 K/uL (0-0.2); Basophils % (auto) 1.1 %; Eosinophils # (auto) 0.13 K/uL (0-0.5); Eosinophils % (auto) 2.8 %; Hematocrit (blood only) 36.1 % (42-52); Hemoglobin 12.4 g/dL (14.0-18.0); Lymphocytes # (auto) 2.15 K/uL (1.2-3.4); Lymphocytes % (auto) 45.9 %; Mean Corpuscular Hemoglobin 27.9 pg (25-34); Mean Corpuscular Hgb Conc 34.3 g/dL (32-36); Mean Corpuscular Volume 81.3 fL (80-100); Mean Platelet Volume 9.1 fL (7.4-10.4); Monocytes # (auto) 0.33 K/uL (0.11-0.59); Monocytes % (auto) 7.1 %; Neutrophils # (auto) 2.02 K/uL (1.4-6.5); Neutrophils % (auto) 43.1 %; Platelet Count 195 K/uL (130-400); RDW Coefficient of Variation 14.5 % (11.5-14.5); RDW Standard Deviation 42.8 fL (36.4-46.3); Red Blood Count 4.44 M/uL (4.7-6.1); Reticulocyte % 1.6 % (0.5-2.0); Reticulocytes # 0.07 10^6/uL (0.02-0.10); White Blood Count 4.68 K/uL (4.8-10.8)
[2019-05-17 06:33] LABS: BUN Creatinine Ratio 14.6 (10-20); Blood Urea Nitrogen 17 mg/dl (7-18); Calcium 8.6 mg/dl (8.5-10.1); Carbon Dioxide 28 mmol/L (21-32); Chloride 108 mmol/L (98-107); Creatinine Clr Calc Pharmacy 63.6 ml/min; Est GFR (African American) 78.6; Est GFR (Non-African American) 67.8; Glucose 83 mg/dl (70-99); Potassium 4.3 mmol/L (3.5-5.1); Sodium 139 mmol/L (136-145)
[2019-05-17 06:39] LABS: Iron 106 mcg/dl (35-175); Total Iron Binding Capacity 273 mcg/dl (250-450); Transferrin 233 mg/dl (200-360); Troponin I < 0.015 ng/ml (0-0.045)
[2019-05-17] MEDS ORDERED: INFLUENZA VIRUS QUAD VACCINE 0.5 ML SYR IM ONE (08:00)
[2019-05-17] MEDS ORDERED: INFLUENZA ADMINISTRATION CHARGE ONE (08:00)
--- NOTE | 2019-05-17 08:13 | Gastrointestinal Consultation ---
Date of Consultation May 17, 2019 Assessment & Plan (1) GI bleed: Mr. Vidales is a 58 yr old male with abdominal pain, melena beginning soon after initiation of anticoagulation for new A-fib. Differentials considered include: gastric or duodenal ulcers. He may also be swallowing blood from the nose bleeds. A lower GI source is less likely but also possible. This appears to be a slow bleed with only slight decrease in Hb and no BUN elevation. He remains hemodynamically stable. 1. Plan for EGD and colonoscopy on Monday05/20/19, allowing time for cardiology causes of chest pain to be ruled out and for pt to prep for the colonoscopy. 2. Please keep on a liquid diet today and tomorrow. Clear liquids all day Monday and NPO after midnight for endoscopy Monday. 3. Hold oral anticoagulants until after endoscopy. 4. Please notify GI if any brisk GI bleeding with decrease in Hb. EGD could be performed urgently. Present on Admission?: Yes Supervising Physician Co-Signing Physician Notes Late entrey: Patient was seen and examined with RACIEL Quiles ion 05/17. Her note reflects our findings and plan History of Present Illness Reason for Consultation: UGI Bleed Requesting Physician: Dr. Jacob Attending Physician: Giorgi Thakkar MD History of Present Illness Mr. Jona Vidales is a 58 yr old male pt of Inmate at [facility] with a hx of GERD, A-fib warfarin (initial onset on Apr 12, 2019 with a brief period of RVR), also with a hx of GERD and GI bleeding (most recent endoscopy in 2010) who was brought to the [facility] ED on 05/16/19 for melena and chest pain. The pt tells me that he has had chest pain for months and upper abdomen burning pain for about a month. He was started on anticoagulation (warfarin and also initial Lovenox) on April 12 adn a few weeks later, he began to pass black, tarry BMs, one/day. He also experienced about 6 nose bleeds during this time. He refused the warfarin since last week because he is aware that the black BM could mean bleeding as he experienced GI bleeding previously. In the past few weeks, he has also felt lightheaded, "like I was going to faint." He has not had diarrhea or quiana red blood in his BMs. He denies nausea and tells me that he has a good appetite. Regarding the chest pain, he describes it as being the same as he has had for months, and that it radiates down his left arm. On arrival, Hb was 12 (down from 13 in March) and 12.4 today. BUN has been normal. INR is 1.2. Most recent BM was prior to arrival and he has not had any vomiting here. Allergies Allergy/AdvReac Type Severity Reaction Status Date / Time No Known Allergies Allergy Unverified 05/16/19 18:34 Home Medications Home Medications Medication Instructions Recorded Confirmed Type latanoprost 1 drp OPHTHALMIC (EYE) HS 05/16/19 05/16/19 History acetaminophen [Mapap 650 mg PO Q4H PRN #90 tab 05/24/19 Rx (acetaminophen)] atorvastatin 40 mg PO QAM 30 Days #30 tab 05/24/19 Rx metoprolol tartrate 25 mg PO BID 30 Days #60 tab 05/24/19 Rx pantoprazole 40 mg PO BID 42 Days #84 tab 05/24/19 Rx warfarin [Coumadin] 5 mg PO DAILY@1600 30 Days #30 tab 05/24/19 Rx Patient History Medical History Atrial fibrillation (Chronic) GERD (gastroesophageal reflux disease) (Chronic) GI bleed (Acute) Surgical History No history of previous surgery (Chronic) Family History Other Heart disease Social History Preferred Language: Congolese Beliefs That Will Affect Care: None marital status: Single Current Living Situation: Other Current Living Situation Comment: [facility] Feels Safe at Home: Yes Safety Concerns: Feels Safe At This Time Smoking Status: Never smoker Hx Alcohol Use: No Hx Substance Use: No Review of Systems Review of Systems: ROS: Gen: + lightheadedness, no fevers, no weight loss Eyes: No eye redness, or pain, no recent vision changes Resp: No SOB, no cough Cardio: + palpitations,, + chest pain GI: + abdominal pain, no nausea/vomiting : Denies pain on urination Skin: No jaundice, itching or new rashes Physical Exam Constitutional: WD/WN, vitals as above Eyes: PERRL, conjunctivae normal, anicteric sclerae ENMT: external ear and nose normal, oropharynx normal Neck: trachea midline, no thyromegaly Respiratory: normal respiratory effort, lungs clear to auscultation Cardiovascular: RRR, no murmur, no edema Gastrointestinal (Abdomen): Inspection/Auscultation: abdomen normal to inspection; abdomen not distended Percussion/Palpation: + abdomen tender (moderate epigastric and LUQ tenderness w/o guarding) and abdomen soft Musculoskeletal: + left chest wall tender to palpation Skin: no rashes, warm and dry Neurologic: PERRL, EOMI, accommodation nl, no face palsy, no dysarthria Psychiatric: A+Ox3, euthymic affect Lymphatic: no cervical or axillary lymphadenopathy Results & Data Vital Signs (Past 12 Hours) Vital Signs Temp Pulse Pulse Resp BP BP Pulse Ox 05/17/19 08:00 36.5 C 69 22 131/81 99 05/17/19 03:29 36.3 C L 52 L 16 106/74 99 05/16/19 22:53 36.5 C 65 18 124/87 100 05/16/19 21:00 74 13 114/93 99 05/16/19 20:30 91 H 12 120/70 96 Laboratory Results WBC 4.6, Hb 12.4, Hct 36, platelets 195, INR 1.2, BUN 17. LFTs and lipase have been normal. Diagnostic Findings CT abd/pelvis with IV, no oral 05/16/19: 1. Small amount of ascites within the pelvis. 2. Normal appendix. No bowel obstruction. 3. Difficult study to interpret given paucity of intraabdominal fat and lack of oral contrast. 4. Moderate aortoiliac atherosclerotic plaque. No aneurysmal dilatation.
--- NOTE | 2019-05-17 08:33 | Anesthesiology Consultation ---
Date of Service May 17, 2019 Assessment & Plan (1) Encounter for pre-operative examination: Chart Review Chart Review: Patient NOT seen in Pre Admission Testing and data entry assistant initiated Consults Requested cardiac History Surgery Operation Date: 05/17/19 08:00 Proposed Procedures p Esophagogastroduodenoscopy Dr Barrera - Awilda Barrera Height/Weight Height: 5 ft 7 in Weight: 68.7 kg Allergies Allergy/AdvReac Type Severity Reaction Status Date / Time No Known Allergies Allergy Unverified 05/16/19 18:34 Medications Home Medications Medication Instructions Recorded Confirmed Last Taken latanoprost 1 drp OPHTHALMIC (EYE) HS 05/16/19 05/16/19 05/15/19 metoprolol tartrate 12.5 mg PO BID 05/16/19 05/16/19 05/16/19 pantoprazole 40 mg PO DAILY 05/16/19 05/16/19 05/16/19 Active Medications Generic Name Dose Route Start Last Admin Trade Name Freq PRN Reason Stop Dose Admin Pantoprazole Sodium 40 mg/ 10 mls @ 5 mls/min 05/16/19 20:00 05/16/19 20:08 Syringe IV 06/15/19 19:59 5 mls/min BID TRISTA Administration Lactated Ringer's 1,000 mls @ 50 mls/hr 05/16/19 20:15 05/16/19 23:35 Lr IV 06/15/19 20:14 50 mls/hr .Q20H TRISTA Administration Latanoprost 1 drops 05/16/19 22:55 05/16/19 23:42 Xalatan Oph OP 06/15/19 22:54 Not Given HS TRISTA Metoprolol Tartrate 12.5 mg 05/16/19 23:00 05/16/19 23:42 Lopressor PO 06/15/19 22:59 12.5 mg BID TRISTA Administration Morphine Sulfate 4 mg 05/16/19 22:55 05/17/19 01:04 Morphine Sulfate IV 05/30/19 22:54 4 mg Q6H PRN Administration Pain Past Medical History Medical History Atrial fibrillation (Chronic) GERD (gastroesophageal reflux disease) (Chronic) GI bleed (Acute) Past Family History Family History Other Heart disease Past Surgical History Surgical History No history of previous surgery (Chronic) Social History Smoking Status: Never smoker Hx Alcohol Use: No Hx Substance Use: No substance use type: marijuana Physical Exam Vital Signs Last Vital Signs Temp 36.5 C 05/17/19 08:00 Pulse 69 05/17/19 08:00 Resp 22 05/17/19 08:00 BP 131/81 05/17/19 08:00 Pulse Ox 99 05/17/19 08:00 Testing Laboratory Results 05/17/19 05:45 05/17/19 05:45 PT 12.2 Seconds (9.0-12.0) H 05/16/19 16:36 INR 1.2 (0.9-1.1) H 05/16/19 16:36 APTT 29.1 Seconds (21.0-31.0) 05/16/19 16:36 Urine Color Yellow 05/17/19 03:30 Urine Appearance Clear (Clear) 05/17/19 03:30 Urine pH 5.5 (4.5-7.5) 05/17/19 03:30 Ur Specific [place] > 1.045 (1.000-1.030) H 05/17/19 03:30 Urine Protein Negative (Negative) 05/17/19 03:30 Urine Glucose (UA) Negative (Negative) 05/17/19 03:30 Urine Ketones Negative (Negative) 05/17/19 03:30 Urine Nitrite Negative (Negative) 05/17/19 03:30 Ur Leukocyte Esterase Negative (Negative) 05/17/19 03:30 Blood Type O Positive 05/16/19 20:15 Antibody Screen NEGATIVE 05/16/19 20:15 Trop neg x 2 Electrocardiogram Date: 05/16/19 Findings: + AFIB @ (57) Chest X-Ray Date: 05/16/19 Findings: + NAD
[2019-05-17 08:59] LABS: Folate (Folic Acid) 13.28 ng/ml (>5.38)
[2019-05-17] MEDS: PANTOprazole 40 MG in SYRINGE 0 ML IV SCH ×2 (10:41→20:57)
[2019-05-17] MEDS: METOPROLOL TARTRATE 25 MG TAB PO SCH ×2 (10:42→20:56)
[2019-05-17 12:00] LABS: Hematocrit (blood only) 39.5 % (42-52); Hemoglobin 13.3 g/dL (14.0-18.0)
--- NOTE | 2019-05-17 13:08 | Pharmacy Report ---
Pharmacy Anticoagulant Consult - Date of Service May 17, 2019 - Pharmacy Dosing Scope Pharmacy is consulted to initiate/evaluate [anticoagulant] [route] dosing therapy, order appropriate labs and adjust drug dose/frequency. - Subjective The patient is a 58 year old M admitted on 05/16/19 20:18 for CHEST PAIN,UGIB. Patient is to receive or is currently on day # [] of PROPHYLACTIC or THERAPEUTIC [anticoagulant] [route] for [indication.] Pertinent PMH: - Assessment & Plan Regarding PROPHYLACTIC or THERAPEUTIC [Anticoagulant]: Change to/or continue [ANTICOAGULANT] [] mg [route] every [] hours based on [] or estimated creatinine clearance of [] mL/min. Labs: Will order [labs] to be drawn [] / [] / []. Goal level: [] Ongoing Labs (P&T Approved): We will continue to monitor this patient and make adjustments as needed. Thank you.
--- NOTE | 2019-05-17 14:38 | Hospitalist Progress Note ---
Date of Service May 17, 2019 Assessment & Plan (1) Acute upper gastrointestinal bleeding: GI bleed Melena In setting of initiation of anticoagulation for new A. fib Denies aspirin, NSAID use CT ABD:Small amount of ascites within the pelvis. Normal appendix. No bowel obstruction. Difficult study to interpret given paucity of intraabdominal fat and lack of oral contrast. Moderate aortoiliac atherosclerotic plaque. No aneurysmal dilatation. DD: Gastritis, esophagitis, peptic ulcer disease Continue IV Protonix Monitor H&H and transfuse PRBCs as needed Appreciate GI Input Plan for EGD, Colonoscopy on Monday Hb stable Hold anticoagulation for now Normocytic anemia Secondary to above Monitor CBC Atypical chest pain DD: Pleuritic, costochondritis, musculoskeletal, due to A. fib Mildly elevated ESR, CRP Echo showed no wall motion abnormality; mitral valve prolapse, moderate to severe mitral regurgitation Cardiac enzymes negative EKG: A. fib with slow ventricular Chest pain reproducible on palpation Cardiology consulted for input Atrial fibrillation Rate controlled Continue metoprolol Anticoagulation held secondary to GI bleed Cardiology consulted Past tobacco abuse DVT Px: SCDs Re: GI bleed Code Status Full code Disposition: Plan to discharge back to correctional facility when stable Subjective Patient is seen and examined at bedside Complains of pleuritic left-sided chest pain, palpitations intermittently Also reports abdominal pain Denies any shortness of breath, cough, dizziness, diarrhea Discussed with cardiology and gastroenterology today No acute bleeding issues today Review of Systems Review of Systems: All systems reviewed & are unremarkable except as noted in HPI & below Physical Exam Physical Exam: Physical Exam: Vitals signs as noted above General Appearance:Moderately built and nourished, no apparent distress Head: normocephalic, Atraumatic Eyes: normal inspection, EOMI Neck: supple, Trachea midline Respiratory/Chest: Decreased breath sounds, CTA, +Tender on palpation Cardiovascular: S1, S2, No murmur Abdomen/GI:Soft, generalized tender, Bowel sounds present Extremities/Musculoskelatal:normal inspection, no edema Neurologic/Psych:AAOX3, grossly no focal neurological deficits Skin: normal color, warm Results & Data Vital Signs (Past 12 Hours) Vital Signs Temp Pulse Pulse Resp BP Pulse Ox 05/17/19 11:45 36.8 C 90 18 134/89 99 05/17/19 09:00 51 L 05/17/19 08:00 36.5 C 69 22 131/81 99 05/17/19 03:29 36.3 C L 52 L 16 106/74 99 Laboratory Results Short CBC 05/16/19 05/16/19 05/17/19 Range/Units 16:36 20:15 05:45 WBC 5.61 4.68 L (4.8-10.8) K/uL Hgb 12.0 L 11.8 L 12.4 L (14.0-18.0) g/dL Hct 35.1 L 35.1 L 36.1 L (42-52) % Plt Count 222 195 (130-400) K/uL 05/17/19 Range/Units 11:51 WBC (4.8-10.8) K/uL Hgb 13.3 L (14.0-18.0) g/dL Hct 39.5 L (42-52) % Plt Count (130-400) K/uL BMP 05/16/19 05/17/19 16:36 05:45 Sodium 140 139 Potassium 4.0 4.3 Chloride 109 H 108 H Carbon Dioxide 26 28 BUN 20 H 17 Creatinine 1.22 1.17 Glucose 94 83 Calcium 8.8 8.6 Cardiac Enzymes 05/16/19 05/17/19 Range/Units 16:36 05:45 Troponin I < 0.015 < 0.015 (0-0.045) ng/ml Liver Function 05/16/19 Range/Units 16:36 Total Bilirubin 0.4 (0.2-1) mg/dl AST 15 (15-37) U/L ALT 31 (12-78) U/L Alkaline Phosphatase 86 (45-117) U/L Albumin 3.6 (3.4-5.0) gm/dl Urine 05/17/19 Range/Units 03:30 Urine Color Yellow Urine Appearance Clear (Clear) Urine pH 5.5 (4.5-7.5) Ur Specific [place] > 1.045 H (1.000-1.030) Urine Protein Negative (Negative) Urine Glucose (UA) Negative (Negative)
--- NOTE | 2019-05-17 14:39 | Cardiology Consultation ---
Date of Consultation May 17, 2019 Assessment & Plan (1) Atrial fibrillation: Rate controlled atrial fibrillation with occasional PVCs. Continue low-dose metoprolol 12.5 mg twice daily for rate control. Patient has a family history of his father having of a myocardial infarction, but he also apparently had lung cancer. This time the patient's chest pain symptoms are atypical for angina, and he has had 2 troponin levels 12 hours apart that were normal. Serial EKG without ischemic changes, and he describes ongoing chest pain occurring at rest for 3-week interval. Think that the likelihood of this being angina is low at present as he is having it on and off again while in the bed without objective evidence of ischemia. Anticoagulation is on hold due to bleeding. It sounds as though the patient had a gastrointestinal bleeding episode several years ago requiring multiple transfusions. He believes that he was already having some degree of melena prior to initiation of Coumadin, but it has worsened in the meantime. His hemoglobin and blood pressure stable. Patient stable from a cardiac perspective to proceed with endoscopy if felt to be indicated by the GI service. (2) Mitral regurgitation: Echocardiogram reveals mitral valve prolapse, with moderate to severe mitral regurgitation. Continue to follow, rate control atrial fibrillation as noted above. (3) Acute upper gastrointestinal bleeding: No cardiac contra indication to endoscopy. Endoscopy information will be helpful in determining the best course of action for his anticoagulation in the future. History of Present Illness Attending Physician: Giorgi Thakkar MD History of Present Illness Lev Vidales is a 58 year old inmate from [facility] seen in cardiology consultation per the request of Dr. Thakkar for the evaluation of chest pain and atrial fibrillation. The patient denies past cardiac history. He states that in 2010 he had been hospitalized in outside institution for gastrointestinal bleeding. He does not remember the specifics but remember that he required transfusion of multiple units of packed red blood cells. He states that last month in March, while incarcerated at [facility] he recalls having had an EKG and he believes that is when he was diagnosed with atrial fibrillation. He was subsequently transferred to [facility] and was subsequently assessed in the emergency department for findings of chest discomfort and irregular heartbeat. He was diagnosed with a rate controlled atrial fibrillation on 04/12/2019 as document on EKG at that time. Troponin will have been negative x1 on 04/12/2019. He was discharged with a plan to start Coumadin anticoagulation for stroke prophylaxis. In the meantime, the patient has had complaints of on and off again dizziness, chest discomfort that can occur at rest and is positional and is related to when he takes a deep breath, then he feels an irregular heartbeat. He notes that prior to initiating Coumadin he felt that he was concerned about blood in his stool, over the last few weeks, this is worsened, and he has noted black tarry stool that he feels is reminiscent of his prior gastrointestinal bleeding problem and he feels that he has associated dizziness. During my assessment of the patient on the telemetry unit, atrial fibrillation with rate of 60 bpm was noted on telemetry with occasional PVCs. Patient was in no acute distress. His vital signs were stable with most recent blood pressure 134/89. Allergies Allergy/AdvReac Type Severity Reaction Status Date / Time No Known Allergies Allergy Unverified 05/16/19 18:34 Home Medications Home Medications Medication Instructions Recorded Confirmed Type latanoprost 1 drp OPHTHALMIC (EYE) HS 05/16/19 05/16/19 History metoprolol tartrate 12.5 mg PO BID 05/16/19 05/16/19 History pantoprazole 40 mg PO DAILY 05/16/19 05/16/19 History Patient History Medical History Atrial fibrillation (Chronic) GERD (gastroesophageal reflux disease) (Chronic) GI bleed (Acute) Surgical History No history of previous surgery (Chronic) Family History Other Heart disease Social History Preferred Language: Nicaraguan Beliefs That Will Affect Care: None marital status: single Current Living Situation: Other Current Living Situation Comment: [facility] Feels Safe at Home: Yes Safety Concerns: Feels Safe At This Time Smoking Status: Never smoker Hx Alcohol Use: No Hx Substance Use: No Review of Systems Review of Systems: All systems reviewed & are unremarkable except as noted in HPI & below Physical Exam Physical Exam: Temp Pulse Resp BP Pulse Ox 36.8 C 90 18 134/89 99 05/17/19 11:45 05/17/19 11:45 05/17/19 11:45 05/17/19 11:45 05/17/19 11:45 Constitutional: WD/WN, vitals as above Respiratory: normal respiratory effort, lungs clear to auscultation Cardiovascular: Rate/Rhythm: + irregularly irregular Heart Sounds: + murmur (I/ systolic murmur heard best at the left axilla) Vessels: no JVD Extremities: no edema Gastrointestinal (Abdomen): normal bowel sounds, soft, nontender, no hepatosplenomegaly Neurologic: PERRL, EOMI, accommodation nl, no face palsy, no dysarthria Results & Data Vital Signs (Past 12 Hours) Vital Signs Temp Pulse Pulse Resp BP Pulse Ox 05/17/19 11:45 36.8 C 90 18 134/89 99 05/17/19 09:00 51 L 05/17/19 08:00 36.5 C 69 22 131/81 99 05/17/19 03:29 36.3 C L 52 L 16 106/74 99 Laboratory Results Cardiac Enzymes 05/16/19 05/17/19 Range/Units 16:36 05:45 AST 15 (15-37) U/L Troponin I < 0.015 < 0.015 (0-0.045) ng/ml Coagulation 05/16/19 Range/Units 16:36 PT 12.2 H (9.0-12.0) Seconds APTT 29.1 (21.0-31.0) Seconds CBC 05/16/19 05/16/19 05/17/19 Range/Units 16:36 20:15 05:45 WBC 5.61 4.68 L (4.8-10.8) K/uL RBC 4.31 L 4.44 L (4.7-6.1) M/uL Hgb 12.0 L 11.8 L 12.4 L (14.0-18.0) g/dL Hct 35.1 L 35.1 L 36.1 L (42-52) % Plt Count 222 195 (130-400) K/uL Neut # (Auto) 2.96 2.02 (1.4-6.5) K/uL Lymph # (Auto) 2.10 2.15 (1.2-3.4) K/uL Bent # (Auto) 0.40 0.33 (0.11-0.59) K/uL Eos # (Auto) 0.10 0.13 (0-0.5) K/uL Baso # (Auto) 0.04 0.05 (0-0.2) K/uL 05/17/19 Range/Units 11:51 WBC (4.8-10.8) K/uL RBC (4.7-6.1) M/uL Hgb 13.3 L (14.0-18.0) g/dL Hct 39.5 L (42-52) % Plt Count (130-400) K/uL Neut # (Auto) (1.4-6.5) K/uL Lymph # (Auto) (1.2-3.4) K/uL Bent # (Auto) (0.11-0.59) K/uL Eos # (Auto) (0-0.5) K/uL Baso # (Auto) (0-0.2) K/uL Comprehensive Metabolic Panel 05/16/19 05/17/19 Range/Units 16:36 05:45 Sodium 140 139 (136-145) mmol/L Potassium 4.0 4.3 (3.5-5.1) mmol/L Chloride 109 H 108 H (98-107) mmol/L Carbon Dioxide 26 28 (21-32) mmol/L BUN 20 H 17 (7-18) mg/dl Creatinine 1.22 1.17 (0.6-1.4) mg/dl Glucose 94 83 (70-99) mg/dl Calcium 8.8 8.6 (8.5-10.1) mg/dl AST 15 (15-37) U/L ALT 31 (12-78) U/L Alkaline Phosphatase 86 (45-117) U/L Total Protein 7.3 (6.4-8.2) gm/dl Albumin 3.6 (3.4-5.0) gm/dl Intake and Output 05/16/19 05/17/19 05/17/19 22:59 06:59 14:59 Intake Total 380 / 380 Output Total 1000 / 1000 Balance -620 / -620 Intake: Oral 380 / 380 Output: Urine 1000 / 1000 Other: Weight 68.7 kg 68.7 kg Patient Weight 05/18/19 06:59 Weight 68.7 kg Diagnostic Findings EKG performed today 05/17/2019 at 6:55 AM revealed atrial fibrillation at 57 bpm, normal ST segments. EKG performed 05/16/2019 at 1630: Atrial fibrillation at 103 bpm with occasional PVCs. Unchanged compared to 04/12/2019. Transthoracic echocardiogram performed today 05/17/2019 reviewed independently by the undersigned: Rate controlled atrial fibrillation was present during the echocardiogram study. The left ventricular myocardial thickness was normal. No left ventricular wall motion abnormalities were noted. The LVEF was normal at 55%. Left atrium is mildly dilated. The mitral valve leaflets are mildly thickened with moderate prolapse of the posterior mitral valve leaflet observed best on the parasternal long axis view with resultant mitral regurgitation. The mitral regurgitation jet is eccentric and anteriorly directed consistent with posterior mitral valve leaflet prolapse. Moderate to severe mitral regurgitation is present. Doppler findings do not suggest pulmonary hypertension.
[2019-05-17 18:39] LABS: Hematocrit (blood only) 35.5 % (42-52)
[2019-05-17] MEDS: LACTATED RINGER'S 1,000 ML IV SCH (20:56)
[2019-05-17] MEDS: LATANOPROST 0.005% OP SOLN 2.5 ML BTL OP SCH (20:56)
[2019-05-18 05:53] LABS: Hematocrit (blood only) 39.3 % (42-52); Hemoglobin 13.2 g/dL (14.0-18.0); Mean Corpuscular Hemoglobin 27.3 pg (25-34); Mean Corpuscular Hgb Conc 33.6 g/dL (32-36); Mean Corpuscular Volume 81.2 fL (80-100); Mean Platelet Volume 9.4 fL (7.4-10.4); Platelet Count 221 K/uL (130-400); RDW Coefficient of Variation 14.3 % (11.5-14.5); RDW Standard Deviation 42.2 fL (36.4-46.3); Red Blood Count 4.84 M/uL (4.7-6.1); White Blood Count 6.03 K/uL (4.8-10.8)
[2019-05-18 06:22] LABS: BUN Creatinine Ratio 12.2 (10-20); Calcium 8.7 mg/dl (8.5-10.1); Creatinine Clr Calc Pharmacy 56.8 ml/min; Est GFR (African American) 68.6; Est GFR (Non-African American) 59.2; Potassium 4.1 mmol/L (3.5-5.1)
[2019-05-18] MEDS: PANTOprazole 40 MG in SYRINGE 0 ML IV SCH ×2 (07:39→20:37)
[2019-05-18] MEDS: METOPROLOL TARTRATE 25 MG TAB PO SCH ×2 (07:40→20:37)
--- NOTE | 2019-05-18 11:42 | Cardiology Progress Note ---
Date of Service May 18, 2019 Assessment & Plan (1) Atrial fibrillation: Rate controlled atrial fibrillation with occasional PVCs. Continue low-dose metoprolol 12.5 mg twice daily for rate control. Anticoagulation on hold due to melena/lower GI bleeding. Sharp, stabbing chest discomfort reproducible on exam with positional and pleuritic component for nearly 3 weeks. Cardiac enzymes negative over 48-hour period. No regional wall motion normalities on resting 2D transthoracic echoc ardiogram or ischemic ECG changes. Suspect musculoskeletal etiology. Pain management as per internal medicine. (2) Mitral regurgitation: Mitral valve prolapse with moderate to severe mitral regurgitation. Continued observation and medical management recommended currently. No signs/symptoms of decompensated heart failure. Echocardiogram reveals mitral valve prolapse, with moderate to severe mitral regurgitation. No significant left atrial enlargement or pulmonary hypertension per 2D transthoracic echocardiogram. (3) Acute upper gastrointestinal bleeding: No cardiac contraindication to endoscopy. Endoscopy information will be helpful in determining the best course of action for his anticoagulation in the future. Subjective 58-year-old -[place] patient admitted with melena. Hemoglobin remained stable. Coumadin discontinued 4 days prior to admission. Complains of nearly constant sharp left-sided chest discomfort since admission. Cardiac enzymes negative x3 over a 48-hour period. No ischemic ECG changes or regional wall motion abnormalities on echocardiogram. Discomfort reproducible with palpation and position. Patient requesting pain medication. Denies orthopnea or PND. No evidence of pulmonary embolus, pericardial effusion, or acute rib fracture on imaging, however, there is evidence of old left-sided rib fractures. Tentatively scheduled for EGD on Monday. Review of Systems Review of Systems: All systems reviewed & are unremarkable except as noted in HPI & below Physical Exam Physical Exam: General: NAD, AAO x3, well nourished. HEENT: Normocephalic. Atraumatic. Conjunctiva pink, no scleral icterus. Neck: No carotid bruits, the carotid upstrokes are brisk. No JVD. No HJR Heart: Irregular rhythm. Normal S-1 and S-2. 1/6 mid systolic murmur heard best in left axilla. Chest: + Left- sided tenderness to palpation. PMI is not displaced. No RV heave. Lungs: Clear bilateral without rales , rhonchi, or wheeze. Abdomen: Normal bowel sounds. Soft. Nontender. No masses or organomegaly. No abdominal bruits. Extremities: No clubbing, cyanosis, or edema. Pulses: radial=2/4, Dorsalis pedis =2/4, posterior tibial=2/4. Neuro: Cranial nerves grossly intact. No focal motor deficit. Results & Data Vital Signs (Past 12 Hours) Vital Signs Temp Pulse Resp BP BP Pulse Ox 05/18/19 08:00 36.8 C 79 18 124/85 99 05/18/19 04:00 36.3 C L 53 L 16 116/75 98
[2019-05-18] MEDS: LACTATED RINGER'S 1,000 ML IV SCH (12:55)
[2019-05-18] MEDS: BUTALBITAL/ACETAMIN/CAFFEINE TAB PO PRN (12:55)
--- NOTE | 2019-05-18 16:12 | Hospitalist Progress Note ---
Date of Service May 18, 2019 Assessment & Plan (1) Acute upper gastrointestinal bleeding: GI bleed Melena In setting of initiation of anticoagulation for new A. fib Denies aspirin, NSAID use CT ABD:Small amount of ascites within the pelvis. Normal appendix. No bowel obstruction. Difficult study to interpret given paucity of intraabdominal fat and lack of oral contrast. Moderate aortoiliac atherosclerotic plaque. No aneurysmal dilatation. DD: Gastritis, esophagitis, peptic ulcer disease Continue IV Protonix Monitor H&H and transfuse PRBCs as needed Appreciate GI Input Plan for EGD, Colonoscopy on Monday Hold anticoagulation for now No acute bleeding issues Hemoglobin stable Normocytic anemia Secondary to above Monitor CBC Atypical chest pain DD: Pleuritic, musculoskeletal Mildly elevated ESR, CRP Echo showed no wall motion abnormality; mitral valve prolapse, moderate to severe mitral regurgitation Cardiac enzymes negative EKG: A. fib with slow ventricular Chest pain reproducible on palpation Appreciate Cardiology Input No NSAIDs due to GI bleeding Pain control ? Abuse for pain meds Mitral Regurgitation No significant left atrial enlargement or pulmonary hypertension No signs of CHF Monitor Atrial fibrillation Rate controlled Continue metoprolol Anticoagulation held secondary to GI bleed Cardiology consulted Past tobacco abuse DVT Px: SCDs Re: GI bleed Code Status Full code Disposition: Plan to discharge back to correctional facility when stable Subjective Patient is seen and examined at bedside Continues to complain of left-sided chest pain which increases with breathing, movement Also complains of abdominal pain Denies any shortness of breath, cough, dizziness, diarrhea Hemoglobin stable Guards at bedside Review of Systems Review of Systems: All systems reviewed & are unremarkable except as noted in HPI & below Physical Exam Physical Exam: Physical Exam: Vitals signs as noted above General Appearance:Moderately built and nourished, no apparent distress Head: normocephalic, Atraumatic Eyes: normal inspection, EOMI Neck: supple, Trachea midline Respiratory/Chest: Decreased breath sounds, CTA, +Tender on palpation Cardiovascular: S1, S2, No murmur Abdomen/GI:Soft, generalized tender, no guarding, rigidity, bowel sounds present Extremities/Musculoskelatal:normal inspection, no edema Neurologic/Psych:AAOX3, grossly no focal neurological deficits Skin: normal color, warm Results & Data Vital Signs (Past 12 Hours) Vital Signs Temp Pulse Resp BP Pulse Ox 05/18/19 11:55 36.6 C 74 20 124/64 100 05/18/19 08:00 36.8 C 79 18 124/85 99 Laboratory Results Short CBC 05/17/19 05/18/19 Range/Units 18:31 05:34 WBC 6.03 (4.8-10.8) K/uL Hgb 12.0 L 13.2 L (14.0-18.0) g/dL Hct 35.5 L 39.3 L (42-52) % Plt Count 221 (130-400) K/uL BMP 05/18/19 05:34 Sodium 136 Potassium 4.1 Chloride 102 Carbon Dioxide 27 BUN 16 Creatinine 1.31 Glucose 91 Calcium 8.7
[2019-05-18] MEDS: LATANOPROST 0.005% OP SOLN 2.5 ML BTL OP SCH (20:37)
[2019-05-18] MEDS: MoRPHine SULFATE 4 MG/ML 1 ML CARP\\VIAL IV PRN (20:45)
[2019-05-19 07:05] LABS: Hematocrit (blood only) 39.7 % (42-52); Hemoglobin 13.4 g/dL (14.0-18.0)
[2019-05-19] MEDS: METOPROLOL TARTRATE 25 MG TAB PO SCH ×2 (08:13→20:29)
[2019-05-19] MEDS: PANTOprazole 40 MG in SYRINGE 0 ML IV SCH ×2 (08:14→20:29)
[2019-05-19] MEDS: MoRPHine SULFATE 4 MG/ML 1 ML CARP\\VIAL IV PRN ×2 (08:15→14:24)
[2019-05-19] MEDS: LACTATED RINGER'S 1,000 ML IV SCH (09:17)
[2019-05-19] MEDS ORDERED: bisacodyL 5 MG TABEC PO ONE (15:00)
[2019-05-19] MEDS ORDERED: LAVAGE SOLUTION 4000ML PO SCH (15:00)
--- NOTE | 2019-05-19 16:12 | Hospitalist Progress Note ---
Date of Service May 19, 2019 Assessment & Plan (1) Acute upper gastrointestinal bleeding: GI bleed Melena In setting of initiation of anticoagulation for new A. fib Denies aspirin, NSAID use CT ABD:Small amount of ascites within the pelvis. Normal appendix. No bowel obstruction. Difficult study to interpret given paucity of intraabdominal fat and lack of oral contrast. Moderate aortoiliac atherosclerotic plaque. No aneurysmal dilatation. DD: Gastritis, esophagitis, peptic ulcer disease Continue IV Protonix Monitor H&H and transfuse PRBCs as needed Appreciate GI Input Plan for EGD, Colonoscopy tomorrow Hold anticoagulation for now No acute bleeding issues Hemoglobin stable: 13.4 today Start bowel prep today Normocytic anemia Secondary to above Monitor CBC Atypical chest pain DD: Pleuritic, musculoskeletal Mildly elevated ESR, CRP Echo showed no wall motion abnormality; mitral valve prolapse, moderate to severe mitral regurgitation Cardiac enzymes negative EKG: A. fib with slow ventricular Chest pain reproducible on palpation Appreciate Cardiology Input No NSAIDs due to GI bleeding Pain control ? Abuse for pain meds Mitral Regurgitation No significant left atrial enlargement or pulmonary hypertension No signs of CHF Monitor Atrial fibrillation Rate controlled Continue metoprolol Anticoagulation held secondary to GI bleed Cardiology on board Past tobacco abuse DVT Px: SCDs Re: GI bleed Code Status Full code Disposition: Plan to discharge back to correctional facility when stable Subjective Patient is seen and examined at bedside Pleuritic chest pain and abd pain improved No bleeding issues since hospitalization No new complaints Denies any shortness of breath, cough, dizziness, diarrhea Hb stable Guards at bedside Review of Systems Review of Systems: All systems reviewed & are unremarkable except as noted in HPI & below Physical Exam Physical Exam: Physical Exam: Vitals signs as noted above General Appearance:Moderately built and nourished, no apparent distress Head: normocephalic, Atraumatic Eyes: normal inspection, EOMI Neck: supple, Trachea midline Respiratory/Chest: Decreased breath sounds, CTA, +Tender on palpation Cardiovascular: S1, S2, No murmur Abdomen/GI:Soft, generalized tender, no guarding, rigidity, bowel sounds present Extremities/Musculoskelatal:normal inspection, no edema Neurologic/Psych:AAOX3, grossly no focal neurological deficits Skin: normal color, warm Results & Data Vital Signs (Past 12 Hours) Vital Signs Temp Pulse Pulse Resp BP Pulse Ox 05/19/19 10:51 36.3 C L 78 18 150/78 H 100 09/29/19 08:00 82 Laboratory Results Short CBC 05/19/19 Range/Units 06:35 Hgb 13.4 L (14.0-18.0) g/dL Hct 39.7 L (42-52) %
[2019-05-19] MEDS: LATANOPROST 0.005% OP SOLN 2.5 ML BTL OP SCH (20:29)
[2019-05-19] MEDS: ACETAMINOPHEN 1,000 MG/100 ML VIAL IV PRN (20:30)
[2019-05-20] MEDS: MoRPHine SULFATE 4 MG/ML 1 ML CARP\\VIAL IV PRN ×3 (03:59→23:29)
[2019-05-20] MEDS: LACTATED RINGER'S 1,000 ML IV SCH (05:24)
[2019-05-20 07:29] LABS: Hematocrit (blood only) 35.7 % (42-52); Hemoglobin 12.2 g/dL (14.0-18.0); Mean Corpuscular Hemoglobin 27.7 pg (25-34); Mean Corpuscular Hgb Conc 34.2 g/dL (32-36); Mean Platelet Volume 9.4 fL (7.4-10.4); Platelet Count 194 K/uL (130-400); RDW Coefficient of Variation 14.4 % (11.5-14.5); RDW Standard Deviation 41.8 fL (36.4-46.3); Red Blood Count 4.41 M/uL (4.7-6.1); White Blood Count 4.74 K/uL (4.8-10.8)
[2019-05-20] MEDS: ACETAMINOPHEN 1,000 MG/100 ML VIAL IV PRN (07:46)
[2019-05-20 08:02] LABS: BUN Creatinine Ratio 9.4 (10-20); Calcium 8.9 mg/dl (8.5-10.1); Creatinine Clr Calc Pharmacy 64.1 ml/min; Est GFR (African American) 79.4; Est GFR (Non-African American) 68.5; Potassium 4.2 mmol/L (3.5-5.1)
[2019-05-20] MEDS: PANTOprazole 40 MG in SYRINGE 0 ML IV SCH ×2 (08:40→21:01)
[2019-05-20] MEDS: METOPROLOL TARTRATE 25 MG TAB PO SCH ×2 (08:41→21:00)
[2019-05-20] MEDS ORDERED: GLUCAGON FOR INJ 1 MG VIAL SQ PRN (08:51)
[2019-05-20] MEDS ORDERED: GLUCOSE 40% GEL 15 GM TUBE PO PRN (08:51)
[2019-05-20] MEDS ORDERED: DEXTROSE 50% 50 ML SYRINGE IV PRN (08:51)
[2019-05-20] MEDS ORDERED: GLUCOSE 10 TABS/TUBE PO PRN (08:51)
[2019-05-20] MEDS ORDERED: CARBOHYDRATES FOR HYPOGLYCEMIA PO PRN (08:51)
--- NOTE | 2019-05-20 09:19 | Gastroenterology Progress Note ---
Date of Service May 20, 2019 Assessment & Plan (1) GI bleed: Mr. Vidales is a 58 yr old male with abdominal pain, melena beginning soon after initiation of anticoagulation for new A-fib. Differentials considered include: gastric or duodenal ulcers. He may also be swallowing blood from the nose bleeds (reported ab out 7 nose bleeds while on anticoagulation). A lower GI source is less likely but also possible. This appears to be a slow bleed with only slight decrease in Hb and no BUN elevation. He remains hemodynamically stable. 1. EGD/Colonoscopy today by Dr. Gillette. 2. Further recommendations regarding acid suppression and anticoagulation to followed endoscopy. Late entry from yesterday -- attg add: I interviewed and examined pt, reviewed chart and labs. will plan with mejia endoscopy today. Subjective Mr. Vidales is a 58 yr old male from [facility] admitted on 05/16 for CP, melena on warfarin (held since last week) for rate controlled A-fib since March 2019. Hb 12 on arrival, 12.5 today (no transfusions). BUN 21 on arrival normal since 05/17. Per cardiology, CP likely musculoskeletal, mitral prolapse with regurg on echo, cleared for endoscopy. Completed prep. Multiple loose then liquid BMs, initially dark in color. Review of Systems Review of Systems: ROS: Gen: Denies weakness, fevers, weight loss Eyes: No eye redness, or pain, no recent vision changes Resp: No SOB, no cough Cardio: No palpitations/irregular beats, +chest pain, improved since admittions GI: + epigastric burning/pressure; + pain related to left groin hernia; no nausea/vomiting : Denies pain on urination Skin: No jaundice, itching or new rashes Physical Exam Constitutional: WD/WN, vitals as above Eyes: PERRL, conjunctivae normal, anicteric sclerae ENMT: external ear and nose normal, oropharynx normal Neck: trachea midline, no thyromegaly Respiratory: normal respiratory effort, lungs clear to auscultation Cardiovascular: RRR, no murmur, no edema Gastrointestinal (Abdomen): Inspection/Auscultation: abdomen normal to inspection; abdomen not distended Percussion/Palpation: + abdomen tender (moderate epigastric and LUQ tenderness w/o guarding) and abdomen soft Skin: no rashes, warm and dry Neurologic: PERRL, EOMI, accommodation nl, no face palsy, no dysarthria Psychiatric: A+Ox3, euthymic affect Lymphatic: no cervical or axillary lymphadenopathy Results & Data Vital Signs (Past 12 Hours) Vital Signs Temp Pulse Resp BP Pulse Ox 05/20/19 07:37 36.7 C 62 20 124/77 98 05/20/19 04:18 36.5 C 60 15 109/72 100 05/20/19 00:12 36.5 C 51 L 19 114/68 99
--- NOTE | 2019-05-20 11:25 | History & Physical Report ---
Date of Service May 20, 2019 History of Present Illness Primary Care Provider: JONATHAN Hernadez Pt with melena, obscure GIB. Hgb recently stable. CV: RRR Resp: CTA Abd: soft NT A/P: EGD/cscopy today Allergies Allergy/AdvReac Type Severity Reaction Status Date / Time No Known Allergies Allergy Unverified 05/16/19 18:34 Home Medications Home Medications Medication Instructions Recorded Confirmed Type latanoprost 1 drp OPHTHALMIC (EYE) HS 05/16/19 05/16/19 History metoprolol tartrate 12.5 mg PO BID 05/16/19 05/16/19 History pantoprazole 40 mg PO DAILY 05/16/19 05/16/19 History Past Med/Surg History Medical History Atrial fibrillation (Chronic) GERD (gastroesophageal reflux disease) (Chronic) GI bleed (Acute) Surgical History No history of previous surgery (Chronic) Family History Other Heart disease Social History Preferred Language: Korean Beliefs That Will Affect Care: None marital status: single Current Living Situation: Other Current Living Situation Comment: [facility]on[facility] hernadez Feels Safe at Home: Yes Safety Concerns: Feels Safe At This Time Smoking Status: Never smoker Hx Alcohol Use: No Hx Substance Use: No Results & Data Vital Signs (Past 12 Hours) Vital Signs Temp Pulse Pulse Pulse Resp BP BP 05/20/19 11:03 36.8 C 62 20 123/84 05/20/19 07:37 36.7 C 62 20 124/77 05/20/19 07:25 85 05/20/19 04:18 36.5 C 60 15 109/72 05/20/19 00:12 36.5 C 51 L 19 114/68 Pulse Ox 05/20/19 11:03 96 05/20/19 07:37 98 05/20/19 07:25 05/20/19 04:18 100 05/20/19 00:12 99 Code Status & VTE Plan VTE Prophylaxis Plan VTE Prophylaxis will be ordered: Yes
[2019-05-20] MEDS ORDERED: PROPOFOL IV EMULSION 10 MG/ML 20 ML VIAL IV ONE ×2 (11:44→13:00)
[2019-05-20] MEDS ORDERED: LIDOCAINE HCL 2% 2 ML VIAL/AMP(20MG/ML) INFIL ONE (11:44)
[2019-05-20] MEDS ORDERED: DEXTROSE 50% 50 ML SYRINGE IV ONE (11:48)
--- NOTE | 2019-05-20 11:52 | Anesthesiology Consultation ---
Date of Service May 20, 2019 Assessment & Plan Chart Review Chart Review: Acceptable Risk for Surgery and Patient NOT seen in Pre Admission Testing Consults Requested none ASA ASA4 Proposed Anesthesia Anesthesia Type: MAC Risk / Benefits Reviewed With: PT / POA / Parent / Guardian, Accepts Plan and Informed Consent Obtained History Surgery Operation Date: 05/20/19 08:30 Proposed Procedures p Colonscopy EGD Dr Leta Gillette Height/Weight Height: 5 ft 7 in Weight: 67.1 kg Allergies Allergy/AdvReac Type Severity Reaction Status Date / Time No Known Allergies Allergy Unverified 05/16/19 18:34 Medications Home Medications Medication Instructions Recorded Confirmed Last Taken latanoprost 1 drp OPHTHALMIC (EYE) HS 05/16/19 05/16/19 05/15/19 metoprolol tartrate 12.5 mg PO BID 05/16/19 05/16/19 05/16/19 pantoprazole 40 mg PO DAILY 05/16/19 05/16/19 05/16/19 Active Medications Generic Name Dose Route Start Last Admin Trade Name Freq PRN Reason Stop Dose Admin Acetaminophen 650 mg 05/16/19 22:55 05/18/19 08:44 Tylenol PO 06/15/19 22:54 650 mg Q4H PRN Administration Pain or Fever Acetaminophen/Butalbital/Caffeine 1 tab 05/18/19 10:44 05/18/19 12:55 Fioricet PO 06/17/19 10:43 1 tab Q4H PRN Administration Headache Glucose 4 - 8 tabs 05/20/19 08:51 05/20/19 09:13 Dex4 Glucose PO 06/19/19 08:50 4 tabs UD PRN Administration Hypoglycemia Protocol Protocol Pantoprazole Sodium 40 mg/ 10 mls @ 5 mls/min 05/16/19 20:00 05/20/19 08:40 Syringe IV 06/15/19 19:59 5 mls/min BID TRISTA Administration Lactated Ringer's 1,000 mls @ 50 mls/hr 05/16/19 20:15 05/20/19 05:24 Lr IV 06/15/19 20:14 50 mls/hr .Q20H TRISTA Administration Acetaminophen 1,000 mg in 100 mls @ 400 mls/hr 05/18/19 13:27 05/20/19 08:01 Ofirmev IV 06/17/19 13:26 Infused Q8H PRN Infusion Pain Latanoprost 1 drops 05/16/19 22:55 05/19/19 20:29 Xalatan Oph OP 06/15/19 22:54 1 drops HS TRISTA Administration Metoprolol Tartrate 12.5 mg 05/16/19 23:00 05/20/19 08:41 Lopressor PO 06/15/19 22:59 12.5 mg BID TRISTA Administration Morphine Sulfate 4 mg 05/16/19 22:55 05/20/19 03:59 Morphine Sulfate IV 05/30/19 22:54 4 mg Q6H PRN Administration Pain NPO Date Last Intake of Fluids: 05/20/19 Time Last Intake of Fluids: 08:00 Last Intake of Fluids Comment: sip with pills this am Date Last Intake of Solids: 05/18/19 Time Last Intake of Solids: 10:30 Past Medical History Medical History Atrial fibrillation (Chronic) GERD (gastroesophageal reflux disease) (Chronic) GI bleed (Acute) Exercise / Class Metabolic Activity III < 4 Walking/Shop/Light housework Past Family History Family History Other Heart disease Past Surgical History Surgical History No history of previous surgery (Chronic) Past Anesthesia History No Hx of Anesthesia Complications and No Family Hx of Anesthesia Complications History of PONV No Hx of PONV and No Hx of Motion Sickness Social History Smoking Status: Never smoker Hx Alcohol Use: No Hx Substance Use: No substance use type: marijuana Physical Exam Vital Signs Last Vital Signs Temp 37 C 05/20/19 11:31 Pulse 72 05/20/19 11:31 Resp 18 05/20/19 11:31 BP 130/83 05/20/19 11:31 Pulse Ox 99 05/20/19 11:31 Constitutional not obese ENMT Mouth: + edentulous Thyromental Distance: > or= 3.5 Finger Breadths Mallampati Class: II Neck normal visual inspection and trachea midline; neck extension not limited Respiratory normal respiratory effort Auscultation: lungs clear to auscultation bilaterally Cardiovascular Rate/Rhythm: + abnormal rate (afib) and + abnormal rhythm (afib) Heart Sounds: + murmur (at apex) Musculoskeletal Spine: normal cervical ROM Neurologic moves all extremities Motor/Sensory: no sensory deficit Psychiatric Orientation: oriented x 3 Testing Laboratory Results 05/20/19 07:09 05/20/19 07:09 PT 12.2 Seconds (9.0-12.0) H 05/16/19 16:36 INR 1.2 (0.9-1.1) H 05/16/19 16:36 APTT 29.1 Seconds (21.0-31.0) 05/16/19 16:36 Urine Color Yellow 05/17/19 03:30 Urine Appearance Clear (Clear) 05/17/19 03:30 Urine pH 5.5 (4.5-7.5) 05/17/19 03:30 Ur Specific [place] > 1.045 (1.000-1.030) H 05/17/19 03:30 Urine Protein Negative (Negative) 05/17/19 03:30 Urine Glucose (UA) Negative (Negative) 05/17/19 03:30 Urine Ketones Negative (Negative) 05/17/19 03:30 Urine Nitrite Negative (Negative) 05/17/19 03:30 Ur Leukocyte Esterase Negative (Negative) 05/17/19 03:30 Blood Type O Positive 05/16/19 20:15 Antibody Screen NEGATIVE 05/16/19 20:15 05/20/19 05/20/19 09:30 09:10 POC Glucose 71 69 L*
[2019-05-20] MEDS ORDERED: ATROPINE SULFATE 0.1 MG/ML 10ML SYR IV PRN (11:53)
[2019-05-20] MEDS ORDERED: ePHEDrine sulfate 50 MG/ML AMP IV PRN (11:53)
[2019-05-20] MEDS ORDERED: ePHEDrine sulfate 50 MG/ML SYR ONE (13:00)
[2019-05-20] MEDS ORDERED: PHENYLEPHRINE 100MCG/ML 5ML SYR ONE (13:00)
--- NOTE | 2019-05-20 13:02 | Anesthesiology Progress Note ---
Date of Service May 20, 2019 Anesthesia Post Procedure Vital Signs Vital Signs: Temp Pulse Pulse Pulse Resp BP BP 05/20/19 11:31 37 C 72 18 130/83 05/20/19 11:03 36.8 C 62 20 123/84 05/20/19 07:37 36.7 C 62 20 124/77 05/20/19 07:25 85 05/20/19 04:18 36.5 C 60 15 109/72 05/20/19 00:12 36.5 C 51 L 19 114/68 05/19/19 20:00 36.6 C 81 18 113/71 05/19/19 16:10 64 Pulse Ox 05/20/19 11:31 99 05/20/19 11:03 96 05/20/19 07:37 98 05/20/19 07:25 05/20/19 04:18 100 05/20/19 00:12 99 05/19/19 20:00 98 05/19/19 16:10 Pain Intensity Chest: Pain Intensity: 8 Abdomen: Pain Intensity: 8 Transfer of Care Handoff Completed per policy Notes Mental Status: alert / awake / arousable Patient Amnestic to Procedure: Yes Nausea / Vomiting: adequately controlled Pain: adequately controlled Airway Patency, RR, SpO2: stable & adequate BP & HR: stable & adequate Hydration State: stable & adequate Anesthetic Complications: no major complications apparent
--- NOTE | 2019-05-20 13:10 | GI REPORT ---
Patient Name: Lev Vidales Procedure Date: 05/20/2019 11:31 AM Date of : 1960 Admit Type: Inpatient Age: 58 Gender: Male Attending MD: Jacinto Gillette MD Procedure: Colonoscopy Providers: Jacinto Gillette MD Referring MD: Giorgi Farooq Md Indications: Melena Medicines: See the Anesthesia note for documentation of the administered medications Complications: No immediate complications. Estimated Blood Loss: Estimated blood loss: none. Procedure: Pre-Anesthesia Assessment: - ASA Grade Assessment: III - A patient with severe systemic disease. After I obtained informed consent, the scope was passed under direct vision. Throughout the procedure, the patient's blood pressure, pulse, and oxygen saturations were monitored continuously. The scope was introduced through the anus and advanced to the terminal ileum. The colonoscopy was performed without difficulty. The patient tolerated the procedure well. The quality of the bowel preparation was fair. Findings: The perianal and digital rectal examinations were normal. A few small-mouthed diverticula were found in the sigmoid colon. There were multiple ulcers, one with a clot that could not be dislodged with vigorous lavage, in the proximal transverse colon and distal ascending colon near the hepatic flexure. There was a pseudopolyp adjacent to one of these ulcers. There was patchy erythema as well. This focal area of colitis was biopsied. There was a 2 mm polyp in the ascending colon removed with biopsy forceps. There were hemorrhoids on retroflexion. The remainder of the exam was normal. Impression: - Diverticulosis in the sigmoid colon. - Segmental colitis near hepatic flexure, ascending colon. I suspect that this is ischemic colitis; ddx may include NSAID colitis or Crohn's disease, although appearance was atypical for both of these diagnoses. - Diminutive polyp. - Hemorrhoids. Recommendation: - Discharge patient to floor. Request CTA to r/o mesenteric vascular disease. Clears only today; if no pain tomorrow, then diet as tolerated. Hold anti-coag x 48 hours, given ulcer with clot; may resume if cards service considers pt high risk of anti-coagulation. Repeat exam in 6-8 weeks to ensure healing of right sided colitis. Jacinto Gillette M.D. Jacinto Gillette MD 05/20/2019 1:09:51 PM This report has been signed electronically. Note Initiated On: 05/20/2019 11:31 AM Number of Addenda: 0 I attest to the content of the Intraoperative Record and orders documented therein, exceptions below {[id number]}
--- NOTE | 2019-05-20 13:18 | GI REPORT ---
Patient Name: Lev Vidales Procedure Date: 05/20/2019 11:30 AM Date of : 1960 Admit Type: Inpatient Age: 58 Gender: Male Attending MD: Jacinto Gillette MD Procedure: Upper GI endoscopy Providers: Jacinto Gillette MD Referring MD: Giorgi Farooq Md Indications: Melena Medicines: See the Anesthesia note for documentation of the administered medications Complications: No immediate complications. Estimated Blood Loss: Estimated blood loss: none. Procedure: Pre-Anesthesia Assessment: - ASA Grade Assessment: III - A patient with severe systemic disease. After obtaining informed consent, the endoscope was passed under direct vision. Throughout the procedure, the patient's blood pressure, pulse, and oxygen saturations were monitored continuously. The scope was introduced through the mouth, and advanced to the fourth part of duodenum. The upper GI endoscopy was accomplished without difficulty. The patient tolerated the procedure well. Findings: The GE junction was at 40 cm. The esophagus was otherwise normal. The stomach was normal. There was marked patchy erythema and submucosal hemorrhage in the duodenal bulb. There were multiple red spots in the second portion of the duodenum which may represent duodenitis or small AVM's. There was a small diverticulum in the distal duodenum. Biopsies taken from stomach and from duodenum. Recommendation: - Discharge patient to floor. Follow up pathology results. Repeat exam in 6-8 weeks to look for healing of duodenitis. Leila Amos MD 05/20/2019 1:18:11 PM This report has been signed electronically. Note Initiated On: 05/20/2019 11:30 AM Number of Addenda: 0 I attest to the content of the Intraoperative Record and orders documented therein, exceptions below {[id number]}
--- NOTE | 2019-05-20 13:57 | Anesthesiology Progress Note ---
Date of Service May 20, 2019 Pt has been c/o C/p in PACU. When querried he states he's been having c/p all during his hospital stay,as stated by his guard.I have ordered a 12 lead EKG which is no different from prior. I have troponins ordered and drawn. I will call attending hospitalist and let them be aware of the status of this pt. Physical Exam Vital Signs: Last Vital Signs Temp 37 C 05/20/19 11:31 Pulse 82 05/20/19 13:39 Resp 18 05/20/19 13:39 BP 109/80 05/20/19 13:39 Pulse Ox 97 05/20/19 13:39 Results & Data Medications Administered Acetaminophen (Tylenol) 650 mg PO Q4H PRN PRN Reason: Pain or Fever Stop: 06/15/19 22:54 Last Admin: 05/18/19 08:44 Dose: 650 mg Documented by: [id number] Acetaminophen/Butalbital/Caffeine (Fioricet) 1 tab PO Q4H PRN PRN Reason: Headache Stop: 06/17/19 10:43 Last Admin: 05/18/19 12:55 Dose: 1 tab Documented by: [id number] Glucose (Dex4 Glucose) 4 - 8 tabs PO UD PRN; Protocol PRN Reason: Hypoglycemia Protocol Stop: 06/19/19 08:50 Last Admin: 05/20/19 09:13 Dose: 4 tabs Documented by: [id number] Pantoprazole Sodium 40 mg/ (Syringe) 10 mls @ 5 mls/min IV BID TRISTA Stop: 06/15/19 19:59 Last Admin: 05/20/19 08:40 Dose: 5 mls/min Documented by: [id number] Admin: 05/19/19 20:29 Dose: 5 mls/min Documented by: [id number] Admin: 05/19/19 08:14 Dose: 5 mls/min Documented by: [id number] Admin: 05/18/19 20:37 Dose: 5 mls/min Documented by: [id number] Admin: 05/18/19 07:39 Dose: 5 mls/min Documented by: [id number] Admin: 05/17/19 20:57 Dose: 5 mls/min Documented by: [id number] Admin: 05/17/19 10:41 Dose: 5 mls/min Documented by: [id number] Admin: 05/16/19 20:08 Dose: 5 mls/min Documented by: [id number] Lactated Ringer's (Lr) 1,000 mls @ 50 mls/hr IV .Q20H TRISTA Stop: 06/15/19 20:14 Last Admin: 05/20/19 05:24 Dose: 50 mls/hr Documented by: [id number] Infusion: 05/20/19 05:23 Dose: 0 mls/hr Documented by: [id number] Admin: 05/19/19 09:17 Dose: 50 mls/hr Documented by: [id number] Infusion: 05/19/19 09:17 Dose: 50 mls/hr Documented by: [id number] Admin: 05/18/19 12:55 Dose: 50 mls/hr Documented by: [id number] Infusion: 05/18/19 12:55 Dose: 50 mls/hr Documented by: [id number] Admin: 05/17/19 20:56 Dose: 50 mls/hr Documented by: [id number] Infusion: 05/17/19 19:35 Dose: 50 mls/hr Documented by: [id number] Admin: 05/16/19 23:35 Dose: 50 mls/hr Documented by: [id number] Acetaminophen (Ofirmev) 1,000 mg in 100 mls @ 400 mls/hr IV Q8H PRN PRN Reason: Pain Stop: 06/17/19 13:26 Last Infusion: 05/20/19 08:01 Dose: 0 mls/hr Documented by: [id number] Admin: 05/20/19 07:46 Dose: 400 mls/hr Documented by: [id number] Infusion: 05/19/19 20:45 Dose: 0 mls/hr Documented by: [id number] Admin: 05/19/19 20:30 Dose: 400 mls/hr Documented by: [id number] Latanoprost (Xalatan Oph) 1 drops OP HS TRISTA Stop: 06/15/19 22:54 Last Admin: 05/19/19 20:29 Dose: 1 drops Documented by: [id number] Admin: 05/18/19 20:37 Dose: 1 drops Documented by: [id number] Admin: 05/17/19 20:56 Dose: 1 drops Documented by: [id number] Admin: 05/16/19 23:42 Dose: Not Given Documented by: [id number] Metoprolol Tartrate (Lopressor) 12.5 mg PO BID TRISTA Stop: 06/15/19 22:59 Last Admin: 05/20/19 08:41 Dose: 12.5 mg Documented by: [id number] Admin: 05/19/19 20:29 Dose: 12.5 mg Documented by: [id number] Admin: 05/19/19 08:13 Dose: Not Given Documented by: [id number] Admin: 05/18/19 20:37 Dose: 12.5 mg Documented by: [id number] Admin: 05/18/19 07:40 Dose: 12.5 mg Documented by: [id number] Admin: 05/17/19 20:56 Dose: 12.5 mg Documented by: [id number] Admin: 05/17/19 10:42 Dose: 12.5 mg Documented by: [id number] Admin: 05/16/19 23:42 Dose: 12.5 mg Documented by: [id number] Morphine Sulfate (Morphine Sulfate) 4 mg IV Q6H PRN PRN Reason: Pain Stop: 05/30/19 22:54 Last Admin: 05/20/19 03:59 Dose: 4 mg Documented by: [id number] Admin: 05/19/19 14:24 Dose: 4 mg Documented by: [id number] Admin: 05/19/19 08:15 Dose: 4 mg Documented by: [id number] Admin: 05/18/19 20:45 Dose: 4 mg Documented by: [id number] Admin: 05/17/19 18:37 Dose: 4 mg Documented by: [id number] Admin: 05/17/19 10:51 Dose: 4 mg Documented by: [id number] Admin: 05/17/19 01:04 Dose: 4 mg Documented by: [id number]
[2019-05-20] MEDS ORDERED: GADOBUTROL 65ML VIAL IV PRN (16:27)
--- NOTE | 2019-05-20 17:41 | Magnetic Resonance Report ---
MR ANGIOGRAM OF THE ABDOMEN COMBO CLINICAL HISTORY: Right-sided colitis. COMPARISON STUDY: Abdominal CT dated 05/16/2019. TECHNIQUE: MR angiogram of the abdomen is performed utilizing various T1 and T2-weighted sequences in the axial, sagittal, and coronal planes. Contrast-enhanced sequences are acquired following the IV a dministration of 6.5 cc of Gadavist. 3-D reformats and MIPS images were created and assessed. FINDINGS: There is atherosclerotic irregularity and mild ectasia seen throughout the abdominal aorta. The abdom inal aorta and iliac arteries are patent. There is no evidence of dissection. The celiac trunk and th e superior mesenteric artery are widely patent. The inferior mesenteric artery is patent with at leas t moderate stenosis at its origin. Single bilateral renal arteries are patent. The liver, gallbladder, spleen, pancreas, adrenal glands, and kidneys are grossly normal noting angio graphic phase technique. There is no evidence of bowel obstruction. There is trace fluid in the right paracolic gutter. No destructive osseous abnormality is seen. The heart is enlarged. A trace left pl eural effusion is noted. IMPRESSION: 1. 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 2. Otherwise unremarkable MR angiogram of the abdominal aorta and its major branches. 3. There is a small volume of free fluid in the right paracolic gutter. Dictated: 05/20/2019 4:54 PM Transcribed: 05/20/2019 5:36 PM Irma [id number] [id number] Electronically signed by: Pedro Kaminski M.D. 05/20/2019 5:39 PM
--- NOTE | 2019-05-20 18:13 | Hospitalist Progress Note ---
Date of Service May 20, 2019 Assessment & Plan (1) Acute upper gastrointestinal bleeding: GI bleed/Melena--Multifactorial-- Duodenitis or AVMs, diverticulosis, segmental colitis, ? Crohn's, polyp, hemorrhoids In setting of initiation of anticoagulation for new A. fib Denies aspirin, NSAID use CT ABD:Small amount of ascites within the pelvis. Normal appendix. No bowel obstruction. Difficult study to interpret given paucity of intraabdominal fat and lack of oral contrast. Moderate aortoiliac atherosclerotic plaque. No aneurysmal dilatation. --S/P EGD:Marked patchy erythema and submucosal hemorrhage in the duodenal bulb. There were multiple red spots in the second portion of the duodenum which may represent duodenitis or small AVM's. There was a small diverticulum in the distal duodenum. Biopsies taken from stomach and from duodenum. --S/P Colonoscopy: Diverticulosis in the sigmoid colon. Segmental colitis near hepatic flexure, ascending colon. I suspect that this is ischemic colitis; ddx may include NSAID colitis or Crohn's disease, although appearance was atypical for both of these diagnoses. Diminutive polyp. Hemorrhoids. 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 Otherwise unremarkable MR angiogram of the abdominal aorta and its major branches. here is a small volume of free fluid in the right paracolic gutter. --Needs repeat exam in 6-8 weeks to ensure healing of right sided colitis. --Continue IV Protonix Monitor H&H and transfuse PRBCs as needed Appreciate GI Input Hold anticoagulation for now Monitor CBC Clear liquid diet today Further management based on recommendations from GI Normocytic anemia Secondary to above Monitor CBC Atypical chest pain DD: Pleuritic, musculoskeletal Mildly elevated ESR, CRP Echo showed no wall motion abnormality; mitral valve prolapse, moderate to severe mitral regurgitation Cardiac enzymes negative EKG: A. fib with slow ventricular Chest pain reproducible on palpation Appreciate Cardiology Input No NSAIDs due to GI bleeding Pain control Mitral Regurgitation No significant left atrial enlargement or pulmonary hypertension No signs of CHF Monitor Atrial fibrillation Rate controlled Continue metoprolol Anticoagulation held secondary to GI bleed Cardiology on board Past tobacco abuse DVT Px: SCDs Re: GI bleed Code Status Full code Disposition: Plan to discharge back to correctional facility when stable Subjective Patient is seen and examined at bedside Still has Pleuritic chest pain and abd pain Has colonoscopy and EGD today No new complaints Denies any SOB, cough, dizziness, diarrhea Headache improved Guards at bedside Review of Systems Review of Systems: All systems reviewed & are unremarkable except as noted in HPI & below Physical Exam Physical Exam: Physical Exam: Vitals signs as noted above General Appearance:Moderately built and nourished, no apparent distress Head: normocephalic, Atraumatic Eyes: normal inspection, EOMI Neck: supple, Trachea midline Respiratory/Chest: Decreased breath sounds, CTA, +Tender on palpation-- Although no distress noted on palpation Cardiovascular: S1, S2, No murmur Abdomen/GI:Soft, mild tender, no guarding, rigidity, bowel sounds present Extremities/Musculoskelatal:normal inspection, no edema Neurologic/Psych:AAOX3, grossly no focal neurological deficits Skin: normal color, warm Results & Data Vital Signs (Past 12 Hours) Vital Signs Temp Pulse Pulse Pulse Resp BP BP 05/20/19 15:35 36.6 C 57 L 22 153/76 H 05/20/19 14:03 72 18 108/82 05/20/19 13:39 82 18 109/80 05/20/19 13:26 66 18 110/70 05/20/19 13:15 67 18 92/75 L 05/20/19 13:01 81 16 125/76 05/20/19 11:31 37 C 72 18 130/83 05/20/19 11:03 36.8 C 62 20 123/84 05/20/19 07:37 36.7 C 62 20 124/77 05/20/19 07:25 85 Pulse Ox 05/20/19 15:35 98 05/20/19 14:03 96 05/20/19 13:39 97 05/20/19 13:26 96 05/20/19 13:15 97 05/20/19 13:01 96 05/20/19 11:31 99 05/20/19 11:03 96 05/20/19 07:37 98 05/20/19 07:25 Laboratory Results Short CBC 05/20/19 Range/Units 07:09 WBC 4.74 L (4.8-10.8) K/uL Hgb 12.2 L (14.0-18.0) g/dL Hct 35.7 L (42-52) % Plt Count 194 (130-400) K/uL BMP 05/20/19 07:09 Sodium 142 Potassium 4.2 Chloride 107 Carbon Dioxide 28 BUN 11 Creatinine 1.16 Glucose 69 L Calcium 8.9 Cardiac Enzymes 05/20/19 Range/Units 14:38 Troponin I < 0.015 (0-0.045) ng/ml
[2019-05-20] MEDS: LATANOPROST 0.005% OP SOLN 2.5 ML BTL OP SCH (21:01)
[2019-05-21] MEDS: LACTATED RINGER'S 1,000 ML IV SCH ×2 (06:01→20:58)
[2019-05-21 06:52] LABS: Hemoglobin 12.9 g/dL (14.0-18.0)
[2019-05-21 07:22] LABS: Est GFR (African American) 77.8; Est GFR (Non-African American) 67.1
[2019-05-21] MEDS: METOPROLOL TARTRATE 25 MG TAB PO SCH ×2 (08:41→20:57)
[2019-05-21] MEDS: PANTOprazole 40 MG in SYRINGE 0 ML IV SCH (08:42)
[2019-05-21] MEDS: BACLOFEN 10 MG TAB PO SCH ×2 (10:57→20:56)
--- NOTE | 2019-05-21 12:56 | Gastroenterology Progress Note ---
Date of Service May 21, 2019 Assessment & Plan (1) Abdominal pain, epigastric: Mild duodenitis on EGD may cause mild upper abdomen discomfort. Would not expect this to cause moderate or severe abdomen pain and would not expect this to cause chest pain. Plan for repeat EGD in 6-8 weeks. BID po PPI. No further GI procedures planned during this admisison. Present on Admission?: Yes (2) Acute upper gastrointestinal bleeding: Right sided/hepatic flexure ischemic colitis, suspect this is from chronic, slight decrease in perfusion to this area caused by vascular occlusive disease as moderate stenosis of the inferior mesenteric artery found on MRA, though it is patent. Full liquid diet, adv as tolerated Referral for vascular surgery placed. Attg add: I interviewed and examined pt, reviewed chart and labs. Pt continues to complain of left sided chest pain that worsens when he takes a deep breath. He denies abdominal pain, although does report abd bloating. He is hungry and passing stool. On exam, his chest is tender to palpation. His abd is completely non tender, but is mildly distended and tympanic. A/P: Right sided ischemic colitis, single vessel disease on MRI, mild pericolic fluild on imaging -- Clinically, he appears well with return of appetite and benign abd exam. His MRI shows stenosis of SHEILA - will request vasc surgery for input, as well as doppler uls of mesenteric vasculature and utox. It seems reasonable to adv his diet; will follow for worsening ileus and give one dose of dulcolax today. Discussed need for f/u cscopy with pt. Duodenitis - on PPI, although etiology unclear. Bx without Hp, plan repeat EGDin 6 weeks. H/o AVM's - he is at mod risk for recurrent GIB (his HAS-BLED score is 2), but would consider proceeding with anti-coag if CHADs Vasc score is greater than 2. Defer to primary service Present on Admission?: Yes Subjective Mr. Lev Vidales is a 58 yr old male admitted for CP. EGD/Colonoscopy with mild duodenitis, hepatic flexure ulcer suggestive of ischemic colitis. 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 Pt today c/o chest pain, head ache, left groin hernia. Review of Systems Review of Systems: ROS: Gen: Denies weakness, fevers, weight loss Eyes: No eye redness, or pain, no recent vision changes Resp: No SOB, no cough Cardio: No palpitations/irregular beats, pt continues to c/o chest pain GI: + epigastric burning/pressure; + pain related to left groin hernia; no nausea/vomiting : Denies pain on urination Skin: No jaundice, itching or new rashes Physical Exam Constitutional: WD/WN, vitals as above Eyes: PERRL, conjunctivae normal, anicteric sclerae ENMT: external ear and nose normal, oropharynx normal Neck: trachea midline, no thyromegaly Respiratory: normal respiratory effort, lungs clear to auscultation Cardiovascular: RRR, no murmur, no edema Gastrointestinal (Abdomen): Inspection/Auscultation: abdomen normal to inspection; abdomen not distended Percussion/Palpation: + abdomen tender (did not c/o pain on palpation of the upper abdomen) and abdomen soft Moderate sized, reducible left groin hernia. No c/o tenderness on palpation there. Skin: no rashes, warm and dry Neurologic: PERRL, EOMI, accommodation nl, no face palsy, no dysarthria Psychiatric: A+Ox3, euthymic affect Lymphatic: no cervical or axillary lymphadenopathy Results & Data Vital Signs (Past 12 Hours) Vital Signs Temp Pulse Pulse Resp BP BP Pulse Ox 05/21/19 10:51 37.2 C 68 20 122/76 98 05/21/19 08:00 69 05/21/19 07:58 36.9 C 75 16 133/76 93 05/21/19 04:40 36.7 C 67 20 126/77 99 05/21/19 01:00 87
--- NOTE | 2019-05-21 15:25 | Hospitalist Progress Note ---
Date of Service May 21, 2019 Assessment & Plan (1) Acute upper gastrointestinal bleeding: GI bleed/Melena--Multifactorial-- Duodenitis or AVMs, diverticulosis, segmental colitis, ? Crohn's, polyp, hemorrhoids Right-sided/hepatic flexure ischemic colitis: ? Chronic In setting of initiation of anticoagulation for new A. fib Denies aspirin, NSAID use CT ABD:Small amount of ascites within the pelvis. Normal appendix. No bowel obstruction. Difficult study to interpret given paucity of intraabdominal fat and lack of oral contrast. Moderate aortoiliac atherosclerotic plaque. No aneurysmal dilatation. --S/P EGD:Marked patchy erythema and submucosal hemorrhage in the duodenal bulb. There were multiple red spots in the second portion of the duodenum which may represent duodenitis or small AVM's. There was a small diverticulum in the distal duodenum. Biopsies taken from stomach and from duodenum. --S/P Colonoscopy: Diverticulosis in the sigmoid colon. Segmental colitis near hepatic flexure, ascending colon. I suspect that this is ischemic colitis; ddx may include NSAID colitis or Crohn's disease, although appearance was atypical for both of these diagnoses. Diminutive polyp. Hemorrhoids. 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 Otherwise unremarkable MR angiogram of the abdominal aorta and its major branches. here is a small volume of free fluid in the right paracolic gutter. --Needs repeat exam in 6-8 weeks to ensure healing of right sided colitis. --Continue IV Protonix>> transition to p.o. Protonix BID Monitor H&H and transfuse PRBCs as needed Appreciate GI Input Hold anticoagulation for now--May start on anticoagulation on (As per GI) if no recurrence of bleeding Monitor CBC Full liquid diet Advance to regular diet if narcotics no longer needed for pain control Vascular surgery consulted Normocytic anemia Secondary to above Monitor CBC Atypical chest pain DD: Pleuritic, musculoskeletal Mildly elevated ESR, CRP Echo showed no wall motion abnormality; mitral valve prolapse, moderate to severe mitral regurgitation Cardiac enzymes negative EKG: A. fib with slow ventricular Chest pain reproducible on palpation Appreciate Cardiology Input No NSAIDs due to GI bleeding Pain control Started on baclofen today Mitral Regurgitation No significant left atrial enlargement or pulmonary hypertension No signs of CHF Monitor Atrial fibrillation Rate controlled Continue metoprolol Anticoagulation held secondary to GI bleed Cardiology on board Given H/O GI bleed and low RAFAELA Vasc Score, consider Aspirin alone Vs anticoagulation with coumadin Past tobacco abuse DVT Px: SCDs Re: GI bleed Code Status Full code Disposition: Plan to discharge back to correctional facility when stable Subjective Patient is seen and examined at bedside Continues to complain of abdominal, pleuritic chest pain No bleeding issues Discussed with gastroenterology today Diet advanced to full liquid diet Vascular surgery consulted for input Denies any SOB, cough, dizziness, diarrhea Guards at bedside Review of Systems Review of Systems: All systems reviewed & are unremarkable except as noted in HPI & below Physical Exam Physical Exam: Physical Exam: Vitals signs as noted above General Appearance:Moderately built and nourished, no apparent distress Head: normocephalic, Atraumatic Eyes: normal inspection, EOMI Neck: supple, Trachea midline Respiratory/Chest: Decreased breath sounds, CTA, +Tender on palpation-- Although no distress noted on palpation :+ groin hernia Cardiovascular: S1, S2, No murmur Abdomen/GI:Soft, mild tender (no distress on exam), no guarding, rigidity, bowel sounds present Extremities/Musculoskelatal:normal inspection, no edema Neurologic/Psych:AAOX3, grossly no focal neurological deficits Skin: normal color, warm Results & Data Vital Signs (Past 12 Hours) Vital Signs Temp Pulse Pulse Resp BP BP Pulse Ox 05/21/19 10:51 37.2 C 68 20 122/76 98 05/21/19 08:00 69 05/21/19 07:58 36.9 C 75 16 133/76 93 05/21/19 04:40 36.7 C 67 20 126/77 99 Laboratory Results Short CBC 05/21/19 Range/Units 06:25 Hgb 12.9 L (14.0-18.0) g/dL Hct 38.0 L (42-52) % BMP 05/21/19 06:26 Creatinine 1.18 Cardiac Enzymes 05/20/19 Range/Units 14:38 Troponin I < 0.015 (0-0.045) ng/ml
[2019-05-21] MEDS: BUTALBITAL/ACETAMIN/CAFFEINE TAB PO PRN (16:50)
[2019-05-21] MEDS: PANTOprazole 40 MG TAB PO SCH (20:56)
[2019-05-21] MEDS: LATANOPROST 0.005% OP SOLN 2.5 ML BTL OP SCH (20:58)
[2019-05-22 06:34] LABS: Hematocrit (blood only) 36.6 % (42-52); Hemoglobin 12.5 g/dL (14.0-18.0)
[2019-05-22] MEDS ORDERED: Nursing to Pharmacy Communication ONE (07:14)
--- NOTE | 2019-05-22 08:30 | Gastroenterology Progress Note ---
Date of Service May 22, 2019 Assessment & Plan (1) GI bleed: Mr. Vidales is a 58 yr old male with hepatic flexure ischemic colitis and mild duodenitis. 1. Doppler US of mesenteric vessels. 2. At some risk for rebleed but anticoagulation not contraindicated. Defer to primary hospitalist. 3. No antibiotics required. 4. PPI po BID x 6 weeks and recheck EGD. 5. Would also recheck colonoscopy at the same time to verify healing of the ischemic colitis. I have messaged our office asking them to contact [facility] to arrange. Attg add: I interviewed and examined pt, reviewed chart and labs. Pt with mild abdominal pain after meals, o/w doing well. On exam, his abd is mildly tympanic though not obv distended, + BS, and non tender. Uls shows single vessel disease, SHEILA Isolated right colonic ischemia (IRCI) Duodenitis - I discussed his care with vasc surgery team. Cscopy findings show IRCI, but vasc imaging does not show large vessel disease that would be amenable to vasc intervention. Pt is aware that he may be at higher risk for acute mesenteric ischemia, and is aware of symptoms of this and need to seek medical care if this occurs. He should have his CV risk factors (antiplt therapy, BP control, and lipid rx) aggressively managed; will defer to hospitalist and PCP to arrange this. - Regarding his GIB - pt reports h/o large GIB which was attributed to ? AVM's; however, pt is unsure of his medical history, or where/how this diagnosis was made, and I have no documentation of this. He is ok to start anti-coag therapy if his CHADs score justifies this. Pt is aware of risks of bleeding with anti- coag therapy; however, he is also aware of risk of thrombotic event if he does not wish to continue anti-coag therapy. Subjective Mr. Lev Vidales is a 58 yr old male admitted for CP. EGD/Colonoscopy with mild duodenitis, hepatic flexure ulcer suggestive of ischemic colitis. 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 Today: pt's main concern is chest pain, also with lower abdomen burning pain. Eating a regular consistency diet w/o change in pain. "Good appetite." Review of Systems Review of Systems: ROS: Gen: + headaches, lightheadedness Eyes: No eye redness, or pain, no recent vision changes Resp:+ CP, "hurts to take a deep breath," no cough Cardio: + palpitations GI: + lower abdomen pain, no nausea/vomiting : Denies pain on urination Skin: No jaundice, itching or new rashes Physical Exam Constitutional: WD/WN, vitals as above Eyes: PERRL, conjunctivae normal, anicteric sclerae ENMT: external ear and nose normal, oropharynx normal Neck: trachea midline, no thyromegaly Respiratory: normal respiratory effort, lungs clear to auscultation Cardiovascular: RRR, no murmur, no edema Gastrointestinal (Abdomen): Inspection/Auscultation: abdomen not distended Percussion/Palpation: + abdomen tender (pressing on the LLQ and suprapubic area causes burning pain ) and abdomen soft Skin: no rashes, warm and dry Neurologic: PERRL, EOMI, accommodation nl, no face palsy, no dysarthria Psychiatric: A+Ox3, euthymic affect Lymphatic: no cervical or axillary lymphadenopathy Results & Data Vital Signs (Past 12 Hours) Vital Signs Temp Pulse Pulse Resp BP BP Pulse Ox 05/22/19 07:32 36.6 C 65 18 130/78 05/22/19 04:15 36.6 C 56 L 22 122/67 99 05/22/19 02:36 74 05/21/19 23:35 36.4 C L 66 20 128/87 98 Laboratory Results Hb 12, Hct 36. Diagnostic Findings MRA 05/20/12: 1. 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 2. Otherwise unremarkable MR angiogram of the abdominal aorta and its major branches. 3. There is a small volume of free fluid in the right paracolic gutter. CT abd/pelvis 05/16/19 with IV, no oral contrast: 1. Small amount of ascites within the pelvis. 2. Normal appendix. No bowel obstruction. 3. Difficult study to interpret given paucity of intraabdominal fat and lack of oral contrast. 4. Moderate aortoiliac atherosclerotic plaque. No aneurysmal dilatation. Medications Administered po PPI BID. Currently no anticoaguation.
[2019-05-22] MEDS: METOPROLOL TARTRATE 25 MG TAB PO SCH ×2 (08:39→19:26)
[2019-05-22] MEDS: PANTOprazole 40 MG TAB PO SCH ×2 (08:40→19:27)
[2019-05-22] MEDS: BACLOFEN 10 MG TAB PO SCH ×2 (08:40→19:26)
--- NOTE | 2019-05-22 09:39 | Consultation ---
Date of Consultation May 22, 2019 Assessment & Plan (1) Abdominal pain, epigastric: Pt with abd pain which is inconsistent with mesenteric stenosis. MRA demonstrates moderate stenossi of SHEILA, but widely patent SMA and celiac arteries. No indications for vascular surgical intervention at this time. Please call if needed. Patient was seen, examined, and chart reviewed. Agree with exam and treatment plan of the Vascular PA. History of Present Illness Reason for Consultation: SHEILA stenosis Attending Physician: Karina Bermudez MD History of Present Illness 58 yo incarcerated m with multiple medical problems, including a fib, hx GI bleed, GERD, hyperlipidemia, mitral regurgitation, admitted with abd pain, seen in consultation today for SHEILA stenosis noted on MRA. Pt states had been experiencing lower abd pain at all times, which waxes and wanes throughout the day, for the past 90 days or so. Has had similar pains in past, in 2010, when he had GI bleeding that required 6 units of blood(per pt). Noted an odor of blood from his stool as well as melanotic appearance and requested it be tested, and was positive for blood (per pt). Continues to have pain presently. Tried changing his diet at longterm, but had no improvement. Denies WHITE, fever, chest pain presently, N/V, rest pain, claudication, other complaints. Denies post prandial pain or significant recent weight loss. MRA abd demonstrated moderate stenosis of SHEILA. Allergies Allergy/AdvReac Type Severity Reaction Status Date / Time No Known Allergies Allergy Unverified 05/16/19 18:34 Home Medications Home Medications Medication Instructions Recorded Confirmed Type latanoprost 1 drp OPHTHALMIC (EYE) HS 05/16/19 05/16/19 History metoprolol tartrate 12.5 mg PO BID 05/16/19 05/16/19 History pantoprazole 40 mg PO DAILY 05/16/19 05/16/19 History Patient History Medical History Atrial fibrillation (Chronic) GERD (gastroesophageal reflux disease) (Chronic) GI bleed (Acute) Surgical History No history of previous surgery (Chronic) Family History Other Heart disease Social History Preferred Language: Spanish Beliefs That Will Affect Care: None marital status: Single Current Living Situation: Other Current Living Situation Comment: [facility] Feels Safe at Home: Yes Safety Concerns: Feels Safe At This Time Smoking Status: Never smoker Hx Alcohol Use: No Hx Substance Use: No Review of Systems Review of Systems: All systems reviewed & are unremarkable except as noted in HPI & below Physical Exam Constitutional: WD/WN, vitals as above well developed, well nourished, healthy appearing, well groomed, cooperative and comfortable; not in distress and not combative Eyes: PERRL, conjunctivae normal, anicteric sclerae EOM intact bilaterally ENMT: external ear and nose normal, oropharynx normal Ears: no hearing impairment Neck: no tracheal deviation, no neck crepitus and neck nontender Respiratory: normal respiratory effort, lungs clear to auscultation does not use accessory muscles, no cough and no audible wheezes Auscultation: lungs clear to auscultation bilaterally and + diminished lung sounds Cardiovascular: Rate/Rhythm: + irregularly irregular Heart Sounds: no gallop and no murmur Vessels: femoral pulses present, posterior tibial pulses present, dorsalis pedis pulses present, brachial pulses present and radial pulses present; no carotid bruit, no femoral bruit and + abnormal peripheral pulses Extremities: normal capillary refill; no edema Gastrointestinal (Abdomen): Inspection/Auscultation: abdomen normal to inspection and normal bowel sounds; abdomen not distended Percussion/Palpation: + abdomen tender (across lower abd) and abdomen soft; no guarding and abdomen not rigid Musculoskeletal: no cyanosis or clubbing, extremities motor strength 5/5 Head/Neck/Chest: normocephalic, head atraumatic and neck supple Extremities: extremities normal to inspection and strength 5/5 throughout; full ROM of extremities Skin: no rashes, warm and dry normal turgor and + turgor decreased; no lesions, no ulcers, no induration, no dry skin, no erythema, no eschar and no mottling Neurologic: moves all extremities and awake; no focal motor deficits and not confused Speech / Cognition: no expressive aphasia and no receptive aphasia Motor/Sensory: no tremor and no sensory deficit Cranial Nerves: EOM intact bilaterally and normal facial strength Psychiatric: Orientation: alert, oriented x 3 and cooperative Apperance: appropriately dressed, appropriately groomed and appeared stated age Affect: euthymic affect Thought Process: goal directed thought process, linear/logical thought process and clear/coherent thought process Cognition: recent memory grossly intact, remote memory grossly intact, attention grossly intact and language grossly intact Estimated Intelligence: average estimated intelligence Results & Data Vital Signs (Past 12 Hours) Vital Signs Temp Pulse Pulse Resp BP BP Pulse Ox 05/22/19 07:32 36.6 C 65 18 130/78 05/22/19 04:15 36.6 C 56 L 22 122/67 99 05/22/19 02:36 74 05/21/19 23:35 36.4 C L 66 20 128/87 98
[2019-05-22] MEDS: BUTALBITAL/ACETAMIN/CAFFEINE TAB PO PRN ×2 (12:10→19:26)
--- NOTE | 2019-05-22 14:01 | Ultrasound Report ---
DOPPLER ULTRASOUND OF THE MAJOR MESENTERIC VESSELS CLINICAL HISTORY: Ischemic colitis. COMPARISON STUDY: MRA of the abdomen May 20, 2019 TECHNIQUE: Grayscale, color Doppler sonography of the abdominal aorta and major mesenteric vessels wa s performed.. FINDINGS: Peak systolic velocity within the celiac axis was 215 cm/s. Peak systolic velocity within t he superior mesenteric artery was 176 cm/s. Peak systolic velocity within the inferior mesenteric art tamara was 434 cm/s. IMPRESSION: Findings suggestive of a hemodynamically significant stenosis within the proximal inferio r mesenteric artery. Electronically signed by: Ag Kowalski M.D. 05/22/2019 2:00 PM
--- NOTE | 2019-05-22 15:53 | Hospitalist Progress Note ---
Date of Service May 22, 2019 Assessment & Plan (1) GI bleed: Possible etiologies include mild duodenitis, ischemic colitis S/p EGD (05/20/2019) - Marked patchy erythema and submucosal hemorrhage in the duodenal bulb. There were multiple red spots in the second portion of the duodenum which may represent duodenitis or small AVM's. There was a small diverticulum in the distal duodenum. Biopsies taken from stomach and from duodenum. S/p Colonoscopy (05/20/2019) -Diverticulosis in the sigmoid colon. Segmental colitis near hepatic flexure, ascending colon. I suspect that this is ischemic colitis; ddx may include NSAID colitis or Crohn's disease, although appearance was atypical for both of these diagnoses. Had polyp 2mm s/p biopsy. Has Hemorrhoids. Hb has been stable 12.5 this morning MRA - Moderate stenosis of SHEILA at origin He quit smoking about the time he got incarcerated. Will continue PPI po BID for 6 weeks and repeat scopes with GI Discussed with patient need for resuming anticoagulation due to his chronic Afib. I explained to the patient the risks of bleeding and benefit of preventing CVA/TIA/blood clot formation with anticoagulation. He wants to think about this further. Will discuss it again tomorrow. If patient is agreeable, will resume warfarin. (2) Chest pain: Atypical chest pain Likely musculoskeletal Pain management. Will not use NSAIDs due to GI bleed (3) Atrial fibrillation: Chronic Atrial fibrillation I discussed benefit of anticoagulation with patient as mentioned above Will discuss again tomorrow and resume if agreeable Currently rate controlled. Continue metoprolol Subjective Patient seen and evaluated this morning. He reported that he still has occasional chest pain, sharp, not referred, mild to moderate, occasionally worse with deep breaths. Acknowledged chronic headache after a fall at work with concussion a long time ago. States headache is intermittent but currently not present. Denied any neurological deficits. Has not had any bowel movement since after EGD and Colonscopy Has not had any more bleeding Denied any palpitations, loss of consciousness Review of Systems Review of Systems: As above Physical Exam Physical Exam: General: Well nourished, well hydrated , average body habitus, no acute distress Eyes: PERRL, conjunctivae normal, not pale, anicteric sclerae, EOM intact bilaterally ENMT: External ear and nose normal, oropharynx normal Neck: Normal visual inspection, no tracheal deviation, no swelling noted Respiratory: Normal respiratory effort, no respiratory distress, lungs clear to auscultation, no crackles and no wheezes Cardiovascular: Pulse is irregularly irregular. Heart Sounds: S1 and S2 .Extremities: no pedal edema Chest (Breasts): Chest: normal inspection of chest, +tenderness over left anterior chest wall Gastrointestinal (Abdomen): Abdomen is not distended, soft, non-tender to palpation, no guarding, no palpable hepatosplenomegaly, normal bowel sounds Musculoskeletal: No cyanosis or clubbing, all extremities motor strength 5/5 Skin: No rash noted on gross inspection, No ulcers noted Neurologic: Alert and oriented x 3, No focal weakness, sensation grossly intact Results & Data Vital Signs (Past 12 Hours) Vital Signs Temp Pulse Resp BP BP Pulse Ox 05/22/19 10:50 37.1 C 71 18 109/74 95 05/22/19 07:32 36.6 C 65 18 130/78 05/22/19 04:15 36.6 C 56 L 22 122/67 99 Laboratory Results Laboratory Results - last 24 hr 05/21/19 05/22/19 23:14 06:08 Hgb 12.5 L Hct 36.6 L POC Glucose 92 (1) Atrial fibrillation Atrial fibrillation type: chronic Qualified Code(s): I48.2 - Chronic atrial fibrillation
[2019-05-22] MEDS: LATANOPROST 0.005% OP SOLN 2.5 ML BTL OP SCH (19:27)
[2019-05-22 20:06] LABS: Amphetamines+Metham, Urine Neg (Neg); Barbiturates, Urine Pos (Neg); Benzodiazepine, Urine Neg (Neg); Cocaine, Urine Neg (Neg); MDMA (Ecstacy), Urine Neg (Neg); Methadone, Urine Neg (Neg); Opiate, Urine Pos (Neg); Phencyclidine, Urine Neg (Neg)
[2019-05-22] MEDS: METOPROLOL TARTRATE 1 MG/ML VIAL IV PRN (22:49)
[2019-05-23] MEDS: METOPROLOL TARTRATE 1 MG/ML VIAL IV PRN (00:05)
[2019-05-23] MEDS: METOPROLOL TARTRATE 25 MG TAB PO SCH ×2 (08:54→20:26)
[2019-05-23] MEDS: ATORVASTATIN 40 MG TAB PO SCH (08:55)
[2019-05-23] MEDS: PANTOprazole 40 MG TAB PO SCH ×2 (08:55→20:26)
[2019-05-23] MEDS ORDERED: METOPROLOL TARTRATE 25 MG TAB PO STA (10:31)
--- NOTE | 2019-05-23 10:45 | Hospitalist Progress Note ---
Date of Service May 23, 2019 Assessment & Plan (1) GI bleed: Possible etiologies include mild duodenitis, ischemic colitis S/p EGD (05/20/2019) - Marked patchy erythema and submucosal hemorrhage in the duodenal bulb. There were multiple red spots in the second portion of the duodenum which may represent duodenitis or small AVM's. There was a small diverticulum in the distal duodenum. Biopsies taken from stomach and from duodenum. S/p Colonoscopy (05/20/2019) -Diverticulosis in the sigmoid colon. Segmental colitis near hepatic flexure, ascending colon. I suspect that this is ischemic colitis; ddx may include NSAID colitis or Crohn's disease, although appearance was atypical for both of these diagnoses. Had polyp 2mm s/p biopsy. Has Hemorrhoids. Hb has been stable 12.5 this morning MRA - Moderate stenosis of SHEILA at origin Mesenteric US- significant stenosis of SHEILA Will continue PPI po BID for 6 weeks and repeat scopes with GI I discussed with patient need for resuming anticoagulation due to his chronic Afib. I explained to the patient the risks of bleeding and benefit of preventing CVA/TIA/blood clot formation with anticoagulation. I discussed with the Chair Inspector And Leveler yesterday evening and he recommended anticoagulation if patient is agreeable. Patient stated he will like anticoagulation resumed Will start warfarin 5mg today. Will need monitoring of PT/INR and bleeding even after discharge (2) Chest pain: Atypical chest pain Likely musculoskeletal Pain management. Will not use NSAIDs due to GI bleed Baclofen was discontinued due to overnight event Tylenol prn for now (3) Atrial fibrillation: Chronic Atrial fibrillation Currently on metoprolol tartarate 12.5mg bid. Will increase to 25mg bid po and monitor Will monitor again for 24h and plan discharge tomorrow morning Start warfarin 5mg po daily and monitor INR outpatient. Provided basic warfarin education and need for follow up with a Primary Physician and INR checks Subjective Patient had an episode of rapid ventricular rate overnight and required iv lopressor 2.5mg. He also reported shaking/twitches. Baclofen was discontinued. Patient reports he has not had any more episodes of that. Still reports mild chest wall pain. Denied any shortness of breath,cough Denied any fevers, chills, nausea, vomiting Had bowel movement today but stated he did not look at it to note if it was bloody or melanotic. Review of Systems Review of Systems: All systems reviewed and unremarkable except as noted above Physical Exam Physical Exam: General: Well nourished, well hydrated, no acute distress and not ill appearing Eyes: PERRL, conjunctivae normal, not pale, anicteric sclerae, EOM intact bilaterally ENMT: External ear and nose normal, oropharynx normal Neck: Normal visual inspection, no tracheal deviation, no swelling noted Respiratory: Normal respiratory effort, no respiratory distress, lungs clear to auscultation, no crackles and no wheezes Cardiovascular: Pulse is irregularly irregular, rate of 82bpm, S1 and S2. Extremities: no pedal edema Chest (Breasts): Chest: normal inspection of chest, +tenderness on palpation of left anterior chest wall Gastrointestinal (Abdomen): Abdomen is not distended, soft, non-tender to palpation, no guarding, no palpable hepatosplenomegaly, normal bowel sounds Musculoskeletal: No cyanosis or clubbing, all extremities motor strength 5/5 Neurologic: Alert and oriented x 3, No focal weakness, sensation grossly intact Results & Data Vital Signs (Past 12 Hours) Vital Signs Temp Pulse Pulse Resp BP BP Pulse Ox 05/23/19 07:45 37.5 C 79 16 130/78 96 05/23/19 04:00 37.2 C 83 18 94/58 L 98 05/23/19 00:05 130 H 05/23/19 00:00 122/70 05/22/19 22:50 36.8 C 130 H 20 135/80 97 05/22/19 22:49 138 H S/p EGD (05/20/2019) - Marked patchy erythema and submucosal hemorrhage in the duodenal bulb. There were multiple red spots in the second portion of the duodenum which may represent duodenitis or small AVM's. There was a small diverticulum in the distal duodenum. Biopsies taken from stomach and from duodenum. S/p Colonoscopy (05/20/2019) -Diverticulosis in the sigmoid colon. Segmental colitis near hepatic flexure, ascending colon. I suspect that this is ischemic colitis; ddx may include NSAID colitis or Crohn's disease, although appearance was atypical for both of these diagnoses. Had polyp 2mm s/p biopsy. Has Hemorrhoids. Hb has been stable 12.5 this morning MRA - Moderate stenosis of SHEILA at origin Mesenteric US- significant stenosis of SHEILA (1) Atrial fibrillation Atrial fibrillation type: chronic Qualified Code(s): I48.2 - Chronic atrial fibrillation
[2019-05-23] MEDS: ACETAMINOPHEN 1,000 MG/100 ML VIAL IV PRN (14:11)
[2019-05-23] MEDS: WARFARIN SOD 5 MG TAB PO SCH (16:48)
--- NOTE | 2019-05-23 17:01 | XRay Report ---
XR chest 1V portable CLINICAL HISTORY: Atypical chest pain COMPARISON STUDY: 05/16/2019 FINDINGS: The heart remains borderline enlarged. There is no failure. There is no focal pulmonary con solidation. There are no pleural effusions. There are multiple old left-sided rib fractures.[ IMPRESSION: No active disease in the chest. Electronically signed by: Ruben Trejo M.D. 05/23/2019 5:00 PM
[2019-05-23] MEDS: LATANOPROST 0.005% OP SOLN 2.5 ML BTL OP SCH (20:26)
[2019-05-23] MEDS: BUTALBITAL/ACETAMIN/CAFFEINE TAB PO PRN (21:07)
[2019-05-24 08:46] LABS: INR 1.1 (0.9-1.1); Prothrombin Time 11.4 Seconds (9.0-12.0)
[2019-05-24 08:48] LABS: Hematocrit (blood only) 38.2 % (42-52); Hemoglobin 13.1 g/dL (14.0-18.0); Mean Corpuscular Hemoglobin 28.3 pg (25-34); Mean Corpuscular Hgb Conc 34.3 g/dL (32-36); Mean Corpuscular Volume 82.5 fL (80-100); Mean Platelet Volume 10.2 fL (7.4-10.4); Platelet Count 153 K/uL (130-400); RDW Coefficient of Variation 14.8 % (11.5-14.5); RDW Standard Deviation 44.2 fL (36.4-46.3); Red Blood Count 4.63 M/uL (4.7-6.1); White Blood Count 5.71 K/uL (4.8-10.8)
[2019-05-24] MEDS: ATORVASTATIN 40 MG TAB PO SCH (09:02)
[2019-05-24] MEDS: METOPROLOL TARTRATE 25 MG TAB PO SCH (09:02)
[2019-05-24] MEDS: PANTOprazole 40 MG TAB PO SCH (09:02)
--- NOTE | 2019-05-24 10:41 | Hospitalist Progress Note ---
Date of Service May 24, 2019 Assessment & Plan (1) GI bleed: Possible etiologies include mild duodenitis, ischemic colitis S/p EGD (05/20/2019) - Marked patchy erythema and submucosal hemorrhage in the duodenal bulb. There were multiple red spots in the second portion of the duodenum which may represent duodenitis or small AVM's. There was a small diverticulum in the distal duodenum. Biopsies taken from stomach and from duodenum. S/p Colonoscopy (05/20/2019) -Diverticulosis in the sigmoid colon. Segmental colitis near hepatic flexure, ascending colon. Had polyp 2mm s/p biopsy. Has Hemorrhoids. 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 Will speak with Health provider at facility to discuss patient care and continued management outpatient (2) Chest pain: Atypical chest pain Musculoskeletal pain Pain management. Will not use NSAIDs due to GI bleed Continue Tylenol prn Chest xray done did not show any acute problems except old left rib fractures Episode of chest tightness/pain, numbness on lip and fingers, palpitations and shaking patient reported is likely a panic episode. Counselled patient about this. (3) Atrial fibrillation: Chronic Atrial fibrillation Currently rate controlled on metoprolol tartarate 25mg bid Started warfarin 5mg po daily and monitor INR outpatient. Will discuss with [facility] staff about need for monitoring bleeding and INR Subjective Patient seen and evaluated. Patient reported an episode of shaking, numbness on lip and fingers, palpitations, chest pain yesterday evening that lasted a few minutes. Reported it was similar to episode 2 nights ago. Resolved without intervention. Patient still reports chest pain, sharp, worse with pressing on chest. Reports occasional dizziness and headache which he stated was chronic, started after he has an accident at work in 2007 when he fell through the roof and had a concussion. Had a bowel movement yesterday night he described as brown. No melena or brbpr Review of Systems Review of Systems: All systems reviewed and unremarkable except for mentioned above. Physical Exam Physical Exam: General: No acute distress and not ill appearing Eyes: PERRL, conjunctivae normal, not pale, anicteric sclerae, EOM intact bilaterally ENMT: External ear and nose normal, oropharynx normal Neck: Normal visual inspection, no tracheal deviation, no swelling noted Respiratory: Normal respiratory effort, no respiratory distress, lungs clear to auscultation, no crackles and no wheezes Cardiovascular: Pulse is irregularly irregular S1 S2 Extremities: no pedal edema Chest (Breasts): Chest: normal inspection of chest , mild tenderness on palpation of left chest wall Gastrointestinal (Abdomen): Abdomen is not distended, soft, non-tender to palpation, no guarding, no palpable hepatosplenomegaly, normal bowel sounds Musculoskeletal: No cyanosis or clubbing, all extremities motor strength 5/5 Neurologic: Alert and oriented x 3, No focal weakness, sensation grossly intact Results & Data Vital Signs (Past 12 Hours) Vital Signs Temp Pulse Resp BP BP Pulse Ox 05/24/19 07:35 36.8 C 84 18 112/82 97 05/24/19 03:51 95/64 L 05/24/19 03:36 36.9 C 85 17 85/43 L 98 05/23/19 23:28 36.4 C L 81 19 106/71 100 Laboratory Results Laboratory Results - last 24 hr 05/24/19 05/24/19 05/24/19 00:12 08:19 08:19 WBC 5.71 RBC 4.63 L Hgb 13.1 L Hct 38.2 L MCV 82.5 MCH 28.3 MCHC 34.3 RDW Std Deviation 44.2 RDW Coeff of Brody 14.8 H Plt Count 153 MPV 10.2 PT 11.4 INR 1.1 POC Glucose 105 H (1) Atrial fibrillation Atrial fibrillation type: chronic Qualified Code(s): I48.2 - Chronic atrial fibrillation
--- NOTE | 2019-05-24 12:51 | Gastroenterology Progress Note ---
Date of Service May 24, 2019 Subjective We contacted long-term; we were told that there were no records from prior hosp for GIB in long-term records. We sent medical records requests to [place], [place] as well but have not received response. No new recs today. Results & Data Vital Signs (Past 12 Hours) Vital Signs Temp Pulse Resp BP BP Pulse Ox 05/24/19 07:35 36.8 C 84 18 112/82 97 05/24/19 03:51 95/64 L 05/24/19 03:36 36.9 C 85 17 85/43 L 98
[2019-05-24] MEDS: WARFARIN SOD 5 MG TAB PO SCH (16:24)
--- NOTE | 2019-05-24 18:21 | Discharge Summary ---
Date of Service May 24, 2019 Admission HPI Per Admitting Provider This is a 58 yo M with a PMH of atrial fibrillation on coumadin and GERD from [facility] who presents with chest pain and melena. States that he has had constant left-sided chest pain for the past 3 weeks that has become progressively worse. Pain is exacerbated with deep inspiration and palpation. Also notes dark tarry stools for the past 2 weeks. Unable to quantify amount but states that they are frequent. Stopped his Coumadin 4 days ago due to bleeding but then took again yesterday thinking that it may alleviate chest pain. Also experiencing diffuse abdominal pain for the past week. Was started on pantoprazole at [facility] on Monday to help with acid reflux/abdominal pain, per patient. States he has history of GI bleed in the remote past with multiple hospitalizations requiring blood transfusion. Is unsure what caused bleed in the past. Denies any fever, chills, lightheadedness, headache, visual changes, palpitations, shortness of breath, nausea, vomiting, dysuria, diarrhea, constipation or lower extremity swelling. Denies hematemesis or hematochezia. Denies NSAID use. Admission Exam Per Admitting Provider General Appearance: WD/WN, vitals as above, NAD, sitting up in bed, pleasant, conversing easily with intermittent grimacing Head: normocephalic, atraumatic Eyes: normal inspection, PERRL, conjunctivae normal, anicteric sclerae ENT: external ear and nose normal, oropharynx normal Neck: trachea midline, no thyromegaly normal visual inspection Respiratory: normal respiratory effort, lungs clear to auscultation, no wheeze, rales, rhonchi. Normal insp/exp effort, no accessory muscle use Cardiovascular: irregular rate & rhythm, no murmur appreciated, normal peripheral pulses. Vessels: no JVD or carotid bruit Chest: pain to palpation of left chest, normal inspection of chest Abdomen/GI: normal bowel sounds, soft, diffusely tender, no hepatosplenomegaly Extremities/Musculoskelatal: no cyanosis or clubbing, extremities motor strength 5/5 Neurologic: PERRL, EOMI, accommodation nl, no face palsy, no dysarthria CN's II-XI intact bilaterally and moves all extremities Psychiatric: A+Ox3, euthymic affect Skin: no rashes, normal color, warm/dry Principal Diagnosis Gastrointestinal Bleeding Chronic Atrial Fibrillation Chest pain (Old Left rib fractures) Inferior Mesenteric Artery stenosis Discharge Exam General: No acute distress and not ill appearing Eyes: PERRL, conjunctivae normal, not pale, anicteric sclerae, EOM intact bilaterally ENMT: External ear and nose normal, oropharynx normal Neck: Normal visual inspection, no tracheal deviation, no swelling noted Respiratory: Normal respiratory effort, no respiratory distress, lungs clear to auscultation, no crackles and no wheezes Cardiovascular: Pulse is irregularly irregular S1 S2 Extremities: no pedal edema Chest (Breasts): Chest: normal inspection of chest , mild tenderness on palpation of left chest wall Gastrointestinal (Abdomen): Abdomen is not distended, soft, non-tender to palpation, no guarding, no palpable hepatosplenomegaly, normal bowel sounds Musculoskeletal: No cyanosis or clubbing, all extremities motor strength 5/5 Neurologic: Alert and oriented x 3, No focal weakness, sensation grossly intact Discharge Data Allergies Allergy/AdvReac Type Severity Reaction Status Date / Time No Known Allergies Allergy Unverified 05/16/19 18:34 Consultations 05/16/19 18:41 ED Decision to Admit Stat 05/16/19 22:55 Consult Gastroenterology Routine 05/17/19 10:34 Consult Cardiology Routine 05/21/19 12:14 Consult Vascular Surgery Routine Procedures Performed Operation Date: 05/20/19 11:30 Actual Procedures p EGD Biopsy Cytology(Not Applicable) - Irphan E Gaslightwala s Colonoscopy Polypectomy(Not Applicable) - Irphan E Gaslightwala Ordered Studies 05/16/19 20:14 CT abd pelvis IV con only Urgent 1. Small amount of ascites within the pelvis. 2. Normal appendix. No bowel obstruction. 3. Difficult study to interpret given paucity of intraabdominal fat and lack of oral contrast. 4. Moderate aortoiliac atherosclerotic plaque. No aneurysmal dilatation. CT angio chest PE protocol Urgent 1. No pulmonary emboli identified. 2. Mild cardiomegaly. 3. Mild emphysema. 05/16/19 20:16 CT head/brain wo con Urgent -No acute intracranial findings. 05/20/19 15:17 MR angio abdomen wo/w con Routine - 1. 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 2. Otherwise unremarkable MR angiogram of the abdominal aorta and its major branches. 3. There is a small volume of free fluid in the right paracolic gutter. 05/22/19 08:24 US duplex mesenteric Routine - Findings suggestive of a hemodynamically significant stenosis within the proximal inferior mesenteric artery Chest xray - The heart remains borderline enlarged. There is no failure. There is no focal pulmonary consolidation. There are no pleural effusions. There are multiple old left-sided rib fractures Pathology Results: A. DUODENUM, BIOPSY: NO DIAGNOSTIC ABNORMALITY. B. "STOMACH", BIOPSY: 1. DUODENAL MUCOSA. NO DIAGNOSTIC ABNORMALITY. 2. NO GASTRIC MUCOSA IDENTIFIED WITHIN SPECIMEN. C. COLON, ASCENDING, BIOPSY: ACUTE COLITIS WITH ISCHEMIC CHANGES. D. COLON, ASCENDING, POLYPECTOMY: COLONIC MUCOSA WITH HYPERPLASTIC CHANGES. Hospital Course (1) GI bleed: Possible etiologies include mild duodenitis, ischemic colitis S/p EGD (05/20/2019) - Marked patchy erythema and submucosal hemorrhage in the duodenal bulb. There were multiple red spots in the second portion of the duodenum which may represent duodenitis or small AVM's. There was a small diverticulum in the distal duodenum. Biopsies taken from stomach and from duodenum. S/p Colonoscopy (05/20/2019) -Diverticulosis in the sigmoid colon. Segmental colitis near hepatic flexure, ascending colon. Had polyp 2mm s/p biopsy. Has Hemorrhoids. 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 Spoke with Car Dealer at facility to discuss patient care and continued management outpatient (2) Chest pain: Atypical chest pain Musculoskeletal pain Pain management. Will not use NSAIDs due to GI bleed Continue Tylenol prn Chest xray done did not show any acute problems except old left rib fractures Episode of chest tightness/pain, numbness on lip and fingers, palpitations and s haking patient reported is likely a panic episode. Counselled patient about this. (3) Atrial fibrillation: Chronic Atrial fibrillation Currently rate controlled on metoprolol tartarate 25mg bid Started warfarin 5mg po daily and monitor INR outpatient for goal of 2-3. Total Time Total Time Spent Total Time Spent (In Minutes): 40 mins Total Time Includes: Examination of the Patient, Discharge Planning, Medication Reconciliation and Communication With Other Providers Discharge Plan Discharge Items [facility]position[facility] Reason For Visit: CHEST PAIN,UGIB Discharge Diagnosis: Gastrointestinal Bleeding Chronic Atrial Fibrillation Chest pain (Old Left rib fractures) Condition on Discharge: Good Activity: Resume your previous activity Bathing: No limitations Exercise/Sports: Gradually increase as tolerated Non-emergency contact: Primary Care Provider and Time Clock Mechanic Call non-emergency contact if: you have any medication questions and your symptoms worsen Follow-up/Referrals: Jacinto Gillette [Physician] - Rodegr CASTILLO [Primary Care Provider] - Diet: Heart Healthy Ambulatory Orders: Prothrombin Time INR (Routine) Timeframe: 3 Days Location: Determined by Patient Ordered By: Karina Manzanares Attending Provider Instructions: Mr Vidales. You came to the hospital because of chest pain and dark stool (melena). You reported your chest pain has worsened recently. You also reported that you have had dark stools for about 2 weeks and you recently stopped your coumadin due to the dark stools. You had multiple evaluations and tests including a colonoscopy and EGD (Esophagoduodenoscopy) which showed inflammation of a part of your small bowel (duodenum) and also large bowel with multiple ulcers. These are likely the cause of your gastrointestinal bleeding in addition to the fact that you were on Coumadin for your atrial fibrillation. Coumadin was initially suspended. The bloody bowel movement resolved. You were also evaluated by the Certified Income Tax Preparer. We had a discussion with you about the benefit of Coumadin (reducing risks of blood clots from Atrial fibrillation) and the risks (recurrence of bleeding). You decided to resume Coumadin again due to the risk of blood clot with your atrial Fibrillation. While in the hospital, the dose of your metoprolol to control your heart rate was increased. Please continue to take this. Since the Coumadin was just resumed, it is important to monitor for any signs of bleeding as we discussed. You will also need your INR checked periodically. You were started on Pantoprazole twice a day to help with these inflammation in your bowel. You will need to continue this for 6 weeks. You will also need to follow up with the Time Clock Mechanic for repeat scopes (Colonoscopy and EGD) in 6 weeks. Please call them to make appointment. Some of the scans showed you have a narrowing in one of the blood vessel supplying a part of your intestine. Vascular surgeons evaluated and is being managed with medications. You were started on atorvastatin. For your chest pain, Chest xray showed you had old rib fractures on the left side of your chest which is causing the pain. Please continue pain management as we discussed. I spoke with Dr. Geronimo, the Car Dealer at [facility] and discussed your care while in the hospital Pending Studies at Discharge: No Stand-Alone Forms: Call Back Authorization, My [facility] Skilled Items Patient informed of condition?: Yes Discharge Level of Care: Other Communicable Disease: No Discharge Prognosis: Stable Lines: None Urinary Catheter: No Medications and DC Order Prescriptions: New warfarin [Coumadin] 5 mg Tablet 5 mg PO DAILY@1600 30 Days Qty: 30 RF: 0 metoprolol tartrate 25 mg Tablet 25 mg PO BID 30 Days Qty: 60 RF: 0 atorvastatin 40 mg Tablet 40 mg PO QAM 30 Days Qty: 30 RF: 1 acetaminophen [Mapap (acetaminophen)] 325 mg Tablet 650 mg PO Q4H PRN (Reason: pain) Qty: 90 RF: 0 pantoprazole 40 mg Tablet,Delayed Release (Dr/Ec) 40 mg PO BID 42 Days Qty: 84 RF: 0 Continued latanoprost 0.005 % Drops 1 drp OPHTHALMIC (EYE) HS RF: 0 Discontinued pantoprazole 40 mg Tablet,Delayed Release (Dr/Ec) 40 mg PO DAILY RF: 0 metoprolol tartrate 25 mg Tablet 12.5 mg PO BID RF: 0 Discharge Orders: Discharge Order (Routine); Ordered 05/24/19 Ordered By: Karina Bermudez Admission Data Admit Date/Time: 05/18/19 16:45 Attending Provider: Karina Bermudez I. Admit Provider: Craig Jacob Primary Care Provider: [facility] Other Providers: Craig Jacob ; Faheem Morton ; Charlie Serna ; Navin Rubio ; Giorgi Thakkar Other Interventions: Discharge Summary Assessment (RN) Last Done: 05/24/19 14:18 DC Date/Time DO NOT enter until pt leaves facility: 05/24/19 17:27
[2019-05-25 08:06] LABS: Amobarbital, Urine Conf NEGATIVE NG/ML (CUTOFF=100); Butalbital, Urine 1436 NG/ML (CUTOFF=100); Codeine Urine NEGATIVE NG/ML (CUTOFF=50); Hydrocodone Urine NEGATIVE NG/ML (CUTOFF=50); Hydromor Urine NEGATIVE NG/ML (CUTOFF=50); Morphine Urine 571 NG/ML (CUTOFF=50); Norhydrocodone Conf Ur NEGATIVE NG/ML (CUTOFF=50); Noroxycodone Urine NEGATIVE NG/ML (CUTOFF=50); Oxycodone Urine NEGATIVE NG/ML (CUTOFF=50); Oxymorph Urine NEGATIVE NG/ML (CUTOFF=50); Pentobarbital, Urine Conf NEGATIVE NG/ML (CUTOFF=100); Phenobarbital, Urine NEGATIVE NG/ML (CUTOFF=100); Secobarbital, Urine Conf NEGATIVE NG/ML (CUTOFF=100)
--- NOTE | 2019-05-29 10:25 | Coding Query ---
CODING QUERY To promote full compliance with coding requirements relating to patient care, provider participation is requested in all cases of offset machine operator uncertainty. Please assist us with the question(s) below: Coding Question: "In setting of initiation of anticoagulation" was documented in the progress notes in regards to the patient's GI bleed until 05/22 and then subsequently fell off the chart. Please clarify if the patient's GI bleed was due to the use of anticoagulants. Thank you so much for your help with this! ( ) Acute GI bleed due to anticoagulant use ( ) GI bleed NOT due to anticoagulants ( ) Other, explain Acute GI bleed likely due to a number of factors which include anticoagulant use, duodenitis and colitis. Thank you! Marlee Esteves Principal Diagnosis: "that condition established after study, to be chiefly responsible for occasioning the admission of the patient to the hospital for care." Co-Existing Principal Diagnosis: "when two or more diagnoses equally meet the criteria for principal diagnosis as determined by the circumstances of admission, diagnostic work up, and/or therapy provided, and the Alphabetic Index, Tabular List, or another coding guideline does not provide sequencing direction, any one of the diagnoses may be sequenced first." "When the physician has documented what appears to be a current diagnosis in the body of the record, but has not included the diagnosis in the final diagnostic statement, the physician should be asked whether the diagnosis should be added." (Source Coding [facility] 2 QTR90. p3-4) ALISON
== END 2019-05-24 17:27 | DRG 378 ==
LOC: ED 16:22 → 2S 20:18 → INTOOBSV 20:18 → 2S 22:36 → SUATTDRO 05-18 16:45

== ENCOUNTER 2019-07-15 11:21 | Inpatient (IN) ==
[2019-07-15 12:31] LABS: Basophils # (auto) 0.05 K/uL (0-0.2); Eosinophils % (auto) 2.1 %; Hematocrit (blood only) 33.8 % (42-52); Hemoglobin 11.1 g/dL (14.0-18.0); Immature Granulocytes # (auto) 0.01 K/uL (0.00-0.02); Immature Granulocytes % (auto) 0.2 %; Lymphocytes # (auto) 1.77 K/uL (1.2-3.4); Lymphocytes % (auto) 37.1 %; Mean Corpuscular Hemoglobin 27.1 pg (25-34); Mean Corpuscular Hgb Conc 32.8 g/dL (32-36); Mean Corpuscular Volume 82.4 fL (80-100); Mean Platelet Volume 9.5 fL (7.4-10.4); Monocytes # (auto) 0.23 K/uL (0.11-0.59); Monocytes % (auto) 4.8 %; Neutrophils # (auto) 2.61 K/uL (1.4-6.5); Neutrophils % (auto) 54.8 %; Platelet Count 264 K/uL (130-400); RDW Coefficient of Variation 13.4 % (11.5-14.5); RDW Standard Deviation 40.6 fL (36.4-46.3); White Blood Count 4.77 K/uL (4.8-10.8)
[2019-07-15 12:44] LABS: INR 1.4 (0.9-1.1); Partial Thromboplastin Time 26.1 Seconds (21.0-31.0); Prothrombin Time 14.2 Seconds (9.0-12.0)
[2019-07-15 12:48] LABS: Aspartate Aminotransferase 75 U/L (15-37); BUN Creatinine Ratio 14.4 (10-20); Blood Urea Nitrogen 18 mg/dl (7-18); Carbon Dioxide 24 mmol/L (21-32); Chloride 107 mmol/L (98-107); Creatinine Clr Calc Pharmacy 59.5 ml/min; Est GFR (African American) 72.6; Est GFR (Non-African American) 62.6; Glucose 75 mg/dl (70-99); Lipase 79 U/L (73-393); Potassium 4.3 mmol/L (3.5-5.1); Sodium 137 mmol/L (136-145)
[2019-07-15 12:59] LABS: Alanine Aminotransferase 108 U/L (12-78); Alkaline Phosphatase 95 U/L (45-117); Bilirubin,Total 0.4 mg/dl (0.2-1); Troponin I < 0.015 ng/ml (0-0.045)
[2019-07-15 13:08] LABS: Appearance Urine Clear (Clear); Bilirubin Urine Negative (Negative); Blood Urine Negative (Negative); Color Urine Yellow; Glucose Urine UA Negative (Negative); Ketones Urine Negative (Negative); Leukocyte Esterase Urine Negative (Negative); Nitrite Urine Negative (Negative); Protein Urine Negative (Negative); Specific Gravity Urine 1.007 (1.000-1.030); Urobilinogen Urine Negative (Negative); pH Urine 7.5 (4.5-7.5)
[2019-07-15] MEDS ORDERED: OPTIRAY 320 125ml IV PRN (13:12)
--- NOTE | 2019-07-15 13:34 | CT Scan Report ---
CT ANGIOGRAPHY OF THE CHEST, PULMONARY EMBOLUS PROTOCOL CLINICAL HISTORY: Chest pain. COMPARISON STUDY: Chest CT May 16, 2019. Chest radiograph May 23, 2019. TECHNIQUE: Following IV administration of 120 mL of Optiray-320, helical axial images of the chest we re obtained utilizing the pulmonary embolus protocol. Maximal intensity projections and sagittal and coronal reformats were viewed on an independent 3D workstation. IV contrast was administered withou t complication. Automated exposure control was utilized for the study. A dose lowering technique wa s utilized adhering to the principles of ALARA. CT DOSE: 743.64 mGycm FINDINGS: No pulmonary emboli are identified. Mild cardiomegaly is noted. There is no pericardial ef fusion. No enlarged thoracic lymph nodes are present. The central airways are patent. Mild emphysema is present. No suspicious pulmonary nodules are noted. There is no consolidation to suggest pneumonia . There is no pneumothorax or pleural effusion. Multiple old, healed left rib fractures are present. No suspicious osseous lesions are noted. The abdomen and pelvis will be reported separately. Reflux o f contrast into the IVC and hepatic veins is noted. IMPRESSION: 1. No pulmonary emboli identified. 2. No acute intrathoracic findings. 3. Mild cardiomegaly. 4. Mild emphysema. Electronically signed by: Ag Kowalski M.D. 07/15/2019 1:32 PM
--- NOTE | 2019-07-15 13:36 | CT Scan Report ---
CT abd pelvis IV con only CLINICAL HISTORY: 58 years-old Male presenting with generalized abdominal pain, atypical chest pain. TECHNIQUE: Multidetector CT of the abdomen and pelvis was performed after the administration of intra venous contrast. IV contrast: None. One or more dose lowering techniques were used consistent with e principles of ALARA (as low as reasonably achievable), including automatic exposure control, mA or kV adjustment to individual patient size, and/or use of iterative reconstruction. COMPARISON: 05/16/2019. CT DOSE (mGy.cm): The estimated cumulative dose is 743.64. FINDINGS: Office Secretary topogram: Unremarkable. Lung bases: Top normal cardiac size. No pericardial or pleural effusion. Minimal dependent changes li vianney atelectasis. Liver: Normal morphology. No liver lesion. Patent hepatic vasculature. Biliary: No intrahepatic or extrahepatic biliary ductal dilatation. Normal gallbladder. Pancreas: Normal. Spleen: Normal. Adrenal glands: Normal. Kidneys and ureters: Normal. No hydronephrosis. Bladder: Allowing for underdistention, suspected circumferential bladder wall thickening. Pelvic organs: Prostate and seminal vesicles normal. Bowel: Diverticulosis of the proximal sigmoid and descending colon without wall thickening or pericol onic inflammatory change. Scattered diverticula also noted elsewhere in the colon. The appendix is no rmal though not well visualized. No inflammatory changes in the region of the cecum. Duodenal diverti culum noted in the region of the pancreatic head. Peritoneal cavity: Trace free fluid in the pelvis. No free intraperitoneal gas. Lymph nodes: No enlarged lymph nodes in the abdomen or pelvis. Vasculature: Extensive atherosclerosis. IVC and pelvic veins patent. Abdominal wall: Normal. Musculoskeletal: Degenerative changes of the spine. IMPRESSION: 1. No acute intra-abdominal pathology. 2. Suspected circumferential bladder wall thickening most likely relates to developing chronic bladd er outlet obstruction in the setting of benign prostatic hyperplasia. 3. Diverticulosis coli. No acute diverticulitis. Electronically signed by: Laith Cardenas M.D. 07/15/2019 1:35 PM
[2019-07-15] MEDS ORDERED: PANTOprazole 80 MG in DEXTROSE 5% 100 ML IV ONE (14:30)
--- NOTE | 2019-07-15 14:58 | Emergency Department Note ---
History of Present Illness General Chief complaint: Chest Pain Stated complaint: POSSIBLE BLOOD CLOT IN LUNG, CHEST PAINS, SOB Time Seen by Provider: 07/15/19 12:13 History of Present Illness Maximum Pain Intensity: 8 This is a 58-year-old male that presents to the emergency department via private vehicle accompanied by correctional officer sergeant escort, with complaints of "possible blood clot in lung, chest pain, shortness of breath". Per report, patient has been complaining of chest pain, shortness of breath, dizziness for the past few weeks and [facility]. The patient states that he has had chest pain or shortness of breath for several weeks. He states that he has a history of atrial fibrillation which he states he has been treated for since March of this year. He notes that he was put on a beta-hussein and Coumadin. He states that this has been complicated because of GI bleeding but was restarted on the Coumadin but had to be stopped 2 days ago as he notes that his stool began to smell like blood again. He has been off his medications for 2 days. He does note chronic abdominal pain as well. He denies any bright red blood per rectum. He notes that he is also been quite fatigued and short of breath as well. No personal history of PE. He rates his overall discomfort at this time as an 8/10. Home Medications Home Medications Medication Instructions Recorded Confirmed Type latanoprost 1 drp OPB HS 05/16/19 07/15/19 History acetaminophen [Mapap 650 mg PO TID PRN 07/15/19 07/15/19 History (acetaminophen)] atorvastatin 40 mg PO HS 07/15/19 07/15/19 History docusate sodium 250 mg PO BID 07/15/19 07/15/19 History loratadine 10 mg PO DAILY 07/15/19 07/15/19 History metoprolol tartrate [Lopressor] 25 mg PO BID 07/15/19 07/15/19 History nicotine 1 patch TRANSDERMAL DAILY 07/15/19 07/15/19 History pantoprazole [Protonix] 40 mg PO BID 07/15/19 07/15/19 History Allergies Allergy/AdvReac Type Severity Reaction Status Date / Time cortisone AdvReac Intermediate Passed out Unverified 07/15/19 13:24 Iodinated Contrast Media AdvReac Intermediate Vomiting Unverified 07/15/19 13:26 BP Drops AdvReac Unknown Unknown Uncoded 07/15/19 13:25 Past Med/Surg History Medical History Atrial fibrillation (Chronic) Dyslipidemia GERD (gastroesophageal reflux disease) (Chronic) GI bleed (Acute) Surgical History History of colonoscopy History of esophagogastroduodenoscopy (EGD) No history of previous surgery (Chronic) Family History Other Heart disease Social History Preferred Language: Citizen Of [place] Communication Ability: Effective Commissioning Manager Required: No Beliefs That Will Affect Care: None marital status: Single Current Living Situation: Other Current Living Situation Comment: [facility] Other Information That Helps Us Care for You: No Feels Safe at Home: Yes Safety Concerns: Feels Safe At This Time Smoking Status: Former smoker Hx Alcohol Use: No Hx Substance Use: No Review of Systems A total of 10 systems reviewed and were otherwise negative Physical Exam Vital Signs Vital Signs - 24 hr 07/15/19 10:15 07/15/19 11:24 07/15/19 11:39 Temperature 36.6 C Temperature Source Oral Pulse Rate 79 137 H Pulse Rate [Left] Pulse Rate from SpO2 Sensor Pulse Rhythm Regular Pulse Strength Normal Respiratory Rate 17 20 Respiratory Effort / Characteristics Non-Labored Spontaneous Respiratory Depth Normal Respiratory Pattern Regular Blood Pressure 138/79 142/89 H Blood Pressure [Left Arm] Blood Pressure Mean 107 106 Blood Pressure Mean [Left Arm] Blood Pressure Position Sitting Blood Pressure Position [Left Arm] Pulse Oximetry 98 95 Oxygen Delivery Method Room Air Room Air Sepsis Recent Fever Within 48 Hours No Sepsis Action Taken by Nursing No Action Required 07/15/19 11:46 07/15/19 12:18 07/15/19 12:30 Temperature Temperature Source Pulse Rate 72 73 Pulse Rate [Left] Pulse Rate from SpO2 Sensor 81 Pulse Rhythm Pulse Strength Respiratory Rate 16 14 Respiratory Effort / Characteristics Respiratory Depth Respiratory Pattern Blood Pressure Blood Pressure [Left Arm] Blood Pressure Mean Blood Pressure Mean [Left Arm] Blood Pressure Position Blood Pressure Position [Left Arm] Pulse Oximetry Oxygen Delivery Method Room Air Sepsis Recent Fever Within 48 Hours Sepsis Action Taken by Nursing 07/15/19 12:59 07/15/19 13:00 07/15/19 13:01 Temperature Temperature Source Pulse Rate 67 69 Pulse Rate [Left] 74 Pulse Rate from SpO2 Sensor 76 71 Pulse Rhythm Pulse Strength Respiratory Rate 20 17 15 Respiratory Effort / Characteristics Non-Labored Spontaneous Respiratory Depth Respiratory Pattern Blood Pressure 122/83 Blood Pressure [Left Arm] 122/83 Blood Pressure Mean 98 Blood Pressure Mean [Left Arm] 96 Blood Pressure Position Blood Pressure Position [Left Arm] Lying Pulse Oximetry 100 99 Oxygen Delivery Method Room Air Sepsis Recent Fever Within 48 Hours Sepsis Action Taken by Nursing 07/15/19 13:30 07/15/19 13:31 07/15/19 14:00 Temperature Temperature Source Pulse Rate 78 71 72 Pulse Rate [Left] 76 Pulse Rate from SpO2 Sensor 73 67 68 Pulse Rhythm Pulse Strength Respiratory Rate 21 20 18 Respiratory Effort / Characteristics Respiratory Depth Respiratory Pattern Blood Pressure 126/74 Blood Pressure [Left Arm] 126/74 Blood Pressure Mean 78 Blood Pressure Mean [Left Arm] 91 Blood Pressure Position Blood Pressure Position [Left Arm] Pulse Oximetry 98 100 97 Oxygen Delivery Method Room Air Sepsis Recent Fever Within 48 Hours Sepsis Action Taken by Nursing 07/15/19 14:23 07/15/19 14:24 07/15/19 14:30 Temperature Temperature Source Pulse Rate 68 69 Pulse Rate [Left] 65 Pulse Rate from SpO2 Sensor 71 71 Pulse Rhythm Pulse Strength Respiratory Rate 12 12 15 Respiratory Effort / Characteristics Non-Labored Spontaneous Respiratory Depth Respiratory Pattern Blood Pressure 136/84 119/75 Blood Pressure [Left Arm] 136/84 Blood Pressure Mean 91 79 Blood Pressure Mean [Left Arm] 101 Blood Pressure Position Blood Pressure Position [Left Arm] Lying Pulse Oximetry 98 99 100 Oxygen Delivery Method Room Air Sepsis Recent Fever Within 48 Hours Sepsis Action Taken by Nursing 07/15/19 14:31 07/15/19 15:00 07/15/19 15:01 Temperature Temperature Source Pulse Rate 71 80 63 Pulse Rate [Left] Pulse Rate from SpO2 Sensor 76 Pulse Rhythm Pulse Strength Respiratory Rate 16 Respiratory Effort / Characteristics Respiratory Depth Respiratory Pattern Blood Pressure 115/79 Blood Pressure [Left Arm] Blood Pressure Mean 89 Blood Pressure Mean [Left Arm] Blood Pressure Position Blood Pressure Position [Left Arm] Pulse Oximetry 99 Oxygen Delivery Method Sepsis Recent Fever Within 48 Hours Sepsis Action Taken by Nursing 07/15/19 15:30 11/25/19 15:31 Temperature Temperature Source Pulse Rate 73 73 Pulse Rate [Left] Pulse Rate from SpO2 Sensor Pulse Rhythm Pulse Strength Respiratory Rate 20 13 Respiratory Effort / Characteristics Respiratory Depth Respiratory Pattern Blood Pressure 146/104 H Blood Pressure [Left Arm] Blood Pressure Mean 115 Blood Pressure Mean [Left Arm] Blood Pressure Position Blood Pressure Position [Left Arm] Pulse Oximetry 95 Oxygen Delivery Method Sepsis Recent Fever Within 48 Hours Sepsis Action Taken by Nursing VITAL SIGNS - Vital signs and nursing notes were reviewed. Stable and afebrile. GENERAL - 58-year-old male appearing his stated age who is in no acute distress. He is wearing glasses. Communicates well with provider and answers questions appropriately. SKIN - Without rashes. No meningeal or petechial rash. HEAD - NC/AT. EYES - PERRL with EOMI bilaterally. Sclera anicteric. EARS - No deformities of external structures noted on gross examination bilaterally. NOSE - Midline and without cyanosis. No epistaxis or purulent drainage noted. MOUTH/OROPHARYNX - Without perioral cyanosis. NECK - Neck with FROM. No nuchal rigidity. LUNGS - Chest wall symmetric without accessory muscle use, intercostals retr actions, or central cyanosis. Normal vesicular breath sounds CTA B/L. No wheezes, rales, or rhonchi appreciated. CARDIAC - IR&R with S1/S2. No murmur, rubs, or gallops appreciated. ABDOMEN - Abdominal contour normal without pulsations or visible masses. BS normoactive all four quadrants. No tenderness, palpable masses, hepatosplenomegaly, or ascites noted. EXTREMITIES - No clubbing or peripheral cyanosis. No pretibial edema present.+5/5 strength noted in UE/LE bilaterally. NEUROLOGIC - Cranial nerves II through XII grossly intact. PSYCH - A&Ox3 and cooperates fully with examiner. Pt is very pleasant and interacts well with examiner. RECTAL: Consent was obtained. 2 male corrections officers were at bedside to cement finisher. Unremarkable to inspection. No external hemorrhoids. Digital recta l examination revealed brown stool, that was Hemoccult positive. Course Administered Medications Pantoprazole Sodium 40 mg/ (Dextrose) 100 mls @ 20 mls/hr IV Q5H TRISTA Stop: 08/14/19 14:44 Last Admin: 07/15/19 15:09 Dose: 20 mls/hr Documented by: [id number] Sodium Chloride (Nss 1000ml) 1,000 mls @ 100 mls/hr IV .Q10H TRISTA Stop: 07/16/19 13:24 Last Admin: 07/15/19 17:31 Dose: 100 mls/hr Documented by: [id number] Discontinued Medications Pantoprazole Sodium 80 mg/ (Dextrose) 120 mls @ 480 mls/hr IV NOW ONE Stop: 07/15/19 14:44 Last Infusion: 07/15/19 15:02 Dose: 0 mls/hr Documented by: [id number] Admin: 07/15/19 14:47 Dose: 480 mls/hr Documented by: [id number] Ioversol (Optiray 320 125ml) 120 ml IV ONCE PRN PRN Reason: Interaction Checking Stop: 07/19/19 13:11 Last Admin: 07/15/19 13:14 Dose: 120 ml Documented by: [id number] Medical Decision Making Laboratory Data Result diagrams: 07/15/19 12:01 07/15/19 12:01 Lab Results 07/15/19 07/15/19 07/15/19 Range/Units 12:01 12:01 12:01 WBC 4.77 L (4.8-10.8) K/uL RBC 4.10 L (4.7-6.1) M/uL Hgb 11.1 L (14.0-18.0) g/dL Hct 33.8 L (42-52) % MCV 82.4 (80-100) fL MCH 27.1 (25-34) pg MCHC 32.8 (32-36) g/dL RDW Std Deviation 40.6 (36.4-46.3) fL RDW Coeff of Brody 13.4 (11.5-14.5) % Plt Count 264 (130-400) K/uL MPV 9.5 (7.4-10.4) fL Immature Gran % (Auto) 0.2 % Neut % (Auto) 54.8 % Lymph % (Auto) 37.1 % [place] % (Auto) 4.8 % Eos % (Auto) 2.1 % Baso % (Auto) 1.0 % Immature Gran # (Auto) 0.01 (0.00-0.02) K/uL Neut # (Auto) 2.61 (1.4-6.5) K/uL Lymph # (Auto) 1.77 (1.2-3.4) K/uL [place] # (Auto) 0.23 (0.11-0.59) K/uL Eos # (Auto) 0.10 (0-0.5) K/uL Baso # (Auto) 0.05 (0-0.2) K/uL PT 14.2 H (9.0-12.0) Seconds INR 1.4 H (0.9-1.1) APTT 26.1 (21.0-31.0) Seconds PTT Ratio 1.0 Sodium 137 (136-145) mmol/L Potassium 4.3 (3.5-5.1) mmol/L Chloride 107 (98-107) mmol/L Carbon Dioxide 24 (21-32) mmol/L Anion Gap 6.0 (3-11) BUN 18 (7-18) mg/dl Creatinine 1.25 (0.6-1.4) mg/dl Est Cr Clr Drug Dosing 59.5 ml/min Est GFR ( Amer) 72.6 Est GFR (Non-Af Amer) 62.6 BUN/Creatinine Ratio 14.4 (10-20) Glucose 75 (70-99) mg/dl Calcium 9.0 (8.5-10.1) mg/dl Magnesium 2.0 (1.8-2.4) mg/dl Total Bilirubin 0.4 (0.2-1) mg/dl AST 75 H (15-37) U/L ALT 108 H (12-78) U/L Alkaline Phosphatase 95 (45-117) U/L Troponin I < 0.015 (0-0.045) ng/ml Total Protein 8.0 (6.4-8.2) gm/dl Albumin 4.0 (3.4-5.0) gm/dl Globulin 4.0 (2.5-4.0) gm/dl Albumin/Globulin Ratio 1.0 (0.9-2) Lipase 79 (73-393) U/L TSH 2.470 (0.300-4.500) uIu/ml Urine Color Urine Appearance (Clear) Urine pH (4.5-7.5) Ur Specific [place] (1.000-1.030) Urine Protein (Negative) Urine Glucose (UA) (Negative) Urine Ketones (Negative) Urine Blood (Negative) Urine Nitrite (Negative) Urine Bilirubin (Negative) Urine Urobilinogen (Negative) Ur Leukocyte Esterase (Negative) Blood Type Antibody Screen Crossmatch 07/15/19 07/15/19 Range/Units 13:00 14:34 WBC (4.8-10.8) K/uL RBC (4.7-6.1) M/uL Hgb (14.0-18.0) g/dL Hct (42-52) % MCV (80-100) fL MCH (25-34) pg MCHC (32-36) g/dL RDW Std Deviation (36.4-46.3) fL RDW Coeff of Brody (11.5-14.5) % Plt Count (130-400) K/uL MPV (7.4-10.4) fL Immature Gran % (Auto) % Neut % (Auto) % Lymph % (Auto) % [place] % (Auto) % Eos % (Auto) % Baso % (Auto) % Immature Gran # (Auto) (0.00-0.02) K/uL Neut # (Auto) (1.4-6.5) K/uL Lymph # (Auto) (1.2-3.4) K/uL [place] # (Auto) (0.11-0.59) K/uL Eos # (Auto) (0-0.5) K/uL Baso # (Auto) (0-0.2) K/uL PT (9.0-12.0) Seconds INR (0.9-1.1) APTT (21.0-31.0) Seconds PTT Ratio Sodium (136-145) mmol/L Potassium (3.5-5.1) mmol/L Chloride (98-107) mmol/L Carbon Dioxide (21-32) mmol/L Anion Gap (3-11) BUN (7-18) mg/dl Creatinine (0.6-1.4) mg/dl Est Cr Clr Drug Dosing ml/min Est GFR ( Amer) Est GFR (Non-Af Amer) BUN/Creatinine Ratio (10-20) Glucose (70-99) mg/dl Calcium (8.5-10.1) mg/dl Magnesium (1.8-2.4) mg/dl Total Bilirubin (0.2-1) mg/dl AST (15-37) U/L ALT (12-78) U/L Alkaline Phosphatase (45-117) U/L Troponin I (0-0.045) ng/ml Total Protein (6.4-8.2) gm/dl Albumin (3.4-5.0) gm/dl Globulin (2.5-4.0) gm/dl Albumin/Globulin Ratio (0.9-2) Lipase (73-393) U/L TSH (0.300-4.500) uIu/ml Urine Color Yellow Urine Appearance Clear (Clear) Urine pH 7.5 (4.5-7.5) Ur Specific [place] 1.007 (1.000-1.030) Urine Protein Negative (Negative) Urine Glucose (UA) Negative (Negative) Urine Ketones Negative (Negative) Urine Blood Negative (Negative) Urine Nitrite Negative (Negative) Urine Bilirubin Negative (Negative) Urine Urobilinogen Negative (Negative) Ur Leukocyte Esterase Negative (Negative) Blood Type O Positive Antibody Screen NEGATIVE Crossmatch See Detail Imaging Data Radiologist's Impression: CT ANGIOGRAPHY OF THE CHEST, PULMONARY EMBOLUS PROTOCOL CLINICAL HISTORY: Chest pain. COMPARISON STUDY: Chest CT May 16, 2019. Chest radiograph May 23, 2019. TECHNIQUE: Following IV administration of 120 mL of Optiray-320, helical axial images of the chest were obtained utilizing the pulmonary embolus protocol. Maximal intensity projections and sagittal and coronal reformats were viewed on an independent 3D workstation. IV contrast was administered without complication. Automated exposure control was utilized for the study. A dose lowering technique was utilized adhering to the principles of ALARA. CT DOSE: 743.64 mGycm FINDINGS: No pulmonary emboli are identified. Mild cardiomegaly is noted. There is no pericardial effusion. No enlarged thoracic lymph nodes are present. The central airways are patent. Mild emphysema is present. No suspicious pulmonary nodules are noted. There is no consolidation to suggest pneumonia. There is no pneumothorax or pleural effusion. Multiple old, healed left rib fractures are present. No suspicious osseous lesions are noted. The abdomen and pelvis will be reported separately. Reflux of contrast into the IVC and hepatic veins is noted. IMPRESSION: 1. No pulmonary emboli identified. 2. No acute intrathoracic findings. 3. Mild cardiomegaly. 4. Mild emphysema. Electronically signed by: Ag Kowalski M.D. 07/15/2019 1:[address] abd pelvis IV con only CLINICAL HISTORY: 58 years-old Male presenting with generalized abdominal pain, atypical chest pain. TECHNIQUE: Multidetector CT of the abdomen and pelvis was performed after the administration of intravenous contrast. IV contrast: None. One or more dose lowering techniques were used consistent with the principles of ALARA (as low as reasonably achievable), including automatic exposure control, mA or kV adjustment to individual patient size, and/or use of iterative reconstruction. COMPARISON: 05/16/2019. CT DOSE (mGy.cm): The estimated cumulative dose is 743.64. FINDINGS: Bursar topogram: Unremarkable. Lung bases: Top normal cardiac size. No pericardial or pleural effusion. Minimal dependent changes likely atelectasis. Liver: Normal morphology. No liver lesion. Patent hepatic vasculature. Biliary: No intrahepatic or extrahepatic biliary ductal dilatation. Normal gallbladder. Pancreas: Normal. Spleen: Normal. Adrenal glands: Normal. Kidneys and ureters: Normal. No hydronephrosis. Bladder: Allowing for underdistention, suspected circumferential bladder wall thickening. Pelvic organs: Prostate and seminal vesicles normal. Bowel: Diverticulosis of the proximal sigmoid and descending colon without wall thickening or pericolonic inflammatory change. Scattered diverticula also noted elsewhere in the colon. The appendix is normal though not well visualized. No inflammatory changes in the region of the cecum. Duodenal diverticulum noted in the region of the pancreatic head. Peritoneal cavity: Trace free fluid in the pelvis. No free intraperitoneal gas. Lymph nodes: No enlarged lymph nodes in the abdomen or pelvis. Vasculature: Extensive atherosclerosis. IVC and pelvic veins patent. Abdominal wall: Normal. Musculoskeletal: Degenerative changes of the spine. IMPRESSION: 1. No acute intra-abdominal pathology. 2. Suspected circumferential bladder wall thickening most likely relates to developing chronic bladder outlet obstruction in the setting of benign prostatic hyperplasia. 3. Diverticulosis coli. No acute diverticulitis. Electronically signed by: Laith Cardenas M.D. 07/15/2019 1:35 PM [facility] Narrative Patient was seen and evaluated as above in room A09. Review was performed of nursing notes and vital signs. After obtaining a thorough history and physical examination the above work up was performed. He presents to us today with chest pain and shortness of breath. He also notes that his usual medications were stopped 2 days ago over concern for possible GI bleed. He notes a history of such. IV access was established. CT scan of the chest and abdomen was obtained as the patient was complaining of some abdominal pain as well. These were both essentially negative for acute process. Rectal exam was performed and was found to be clearly positive. CBC reveals no leukocytosis. There is anemia with hemoglobin 11.1. Type and screen obtained after the GI bleed was suspected. INR 1.4. I do not believe that emergently reversing the Coumadin is necessary as he has been off of it for 2 days at this point and his hemoglobin is stable. There is no evidence of kidney failure. AST and ALT are elevated. Troponin negative. Urinalysis is negative. An EKG was also obtained and reveals atrial fibrillation at a rate of 57 bpm. No evidence of AL. No ST elevation. QTc 406. No significant change compared to previous. Notes that event change when compared to EKG of May 17, 2019. Patient will require hospitalization for further evaluation and management. Please refer to further documentation regarding his stay. Case was discussed with the attending physician. In the evaluation and treatment of this patient, the following differential diagnoses were considered: AL, ASC, Dysrhythmia, Angina, Mediastinitis, GERD, Esophagitis, PE, Pneumonia, Bronchitis, Costochondritis, Rib Fracture, Zoster. Impression & Plan Atrial fibrillation, Chest pain, Acute upper gastrointestinal bleeding Discharge Plan Visit Data *Final* Discharge Date/Time: 07/15/19 17:03 Chief Complaint: Chest Pain Stated Complaint: POSSIBLE BLOOD CLOT IN LUNG, CHEST PAINS, SOB ED Provider: Janiya Douglass ED Midlevel Provider: Sandip Leahy Discharge Problem: Atrial fibrillation, Chest pain, Acute upper gastrointestinal bleeding Patient Disposition: Admitted As Inpatient Condition: Good Discharge Instructions Interventions: ED Discharge Assessment Last Done: 07/15/19 17:03
[2019-07-15] MEDS: PANTOprazole 40 MG in DEXTROSE 5% 100 ML IV SCH ×2 (15:09→20:32)
--- NOTE | 2019-07-15 16:31 | History & Physical Report ---
Date of Service July 15, 2019 Assessment & Plan (1) GI bleed: Melena On anticoagulation for new a-fib. Coumadin held past 3 days Vitals stable. H/H: 11.1/33.8 (Hgb 11 on 06/21/19, 13 on 05/24/19), INR: 1.4, BUN: 18, Cr: 1.25 CT ABD/PELVIS: No acute intra-abdominal pathology. Suspected circumferential bladder wall thickening most likely relates to developing chronic bladder outlet obstruction in the setting of benign prostatic hyperplasia. Diverticulosis coli. No acute diverticulitis. 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 H/O similar CP for past couple of months. Recent hospitalization in 04/2019 with 04/2019 Echo: no wall motion abnormalities, EF: 55%, moderate-severe mitral regurgitation, mild tricuspid regurgitation CTA Chest: no PE EKG: A. fib with slow ventricular response Initial troponin negative Chest wall tender on palpation Atypical chest pain. Less likely ACS -Repeat EKG in am -Will trend troponin -Continue statin, metoprolol -Monitor (3) Atrial fibrillation: Atrial fibrillation Currently Rate controlled -Continue metoprolol -Hold Coumadin currently with GI bleed -Cardiology consulted (4) Dyslipidemia: -Continue atorvastatin DVT Prophylaxis -SCDs for now Followed by [facility] Pt was seen and care coordinated with Dr Moreau. See addendum History of Present Illness Chief Complaint: Melena Primary Care Provider: [facility] Pt is 58 y/o M with PMH atrial fibrillation, H/O GI bleeding, GERD, mitral regurgitation presented to ER from [facility] for multiple medical complaints. Pt poor historian and thorough history difficult to gather. Pt reports that he has been having intermittent lower abdominal pain for several months. Also reports intermittent CP for several months. He has had recent hospitalization 05/16/19-05/24/19 for GI bleeding, a-fib, abdominal pain, CP and during that admission his Coumadin initially held and then resumed. Cardiology consulted and ACS r/o, likely musculoskeletal etiology. 05/20/19 EGD: Marked patchy erythema and submucosal hemorrhage in the duodenal bulb. There were multiple red spots in the second portion of the duodenum which may represent duodenitis or small AVM's. There was a small diverticulum in the distal duodenum. Biopsies taken from stomach and from duodenum. 05/20/19 Colonoscopy:Diverticulosis in the sigmoid colon. Segmental colitis near hepatic flexure, ascending colon. Had polyp 2mm s/p biopsy. Hemorrhoids. Pt reports past 2-3 weeks with recurrent CP and recurrent lower abdominal pain. He reports this feels like prior episodes of chest pain. Is unsure if has been having palpitations. Reports some dizziness with standing. Pt c/o chronic lower abdominal pain and feels this has been increased past 2-3 weeks. C/O black tarry color stool and "smell of blood in stool". Pt states that Coumadin was stopped 3 days ago at the correction secondary to melena. Pt reports that he was recently placed on Flomax. He states he felt dizzy and tired and was taken off Flomax. He states that feeling SOB with standing and feeling fatigued. Denies fever/chills, diaphoresis, N/V/D/C, WHITE, syncope, vision changes, neck pain, orthopnea, cough, sore throat, choking, otalgia, rhinorrhea, paresthesias, weakness, extremity weakness, extremity edema, rashes, urinary symptoms. In ER reported heme positive dark stool. Vitals stable in ER. Attempted to Call [facility] medical department, however was unable to reach today. Allergies Allergy/AdvReac Type Severity Reaction Status Date / Time cortisone AdvReac Intermediate Passed out Unverified 07/15/19 13:24 Iodinated Contrast Media AdvReac Intermediate Vomiting Unverified 07/15/19 13:26 BP Drops AdvReac Unknown Unknown Uncoded 07/15/19 13:25 Home Medications Home Medications Medication Instructions Recorded Confirmed Type latanoprost 1 drp OPB HS 05/16/19 07/15/19 History acetaminophen [Mapap 650 mg PO TID PRN 07/15/19 07/15/19 History (acetaminophen)] atorvastatin 40 mg PO HS 07/15/19 07/15/19 History docusate sodium 250 mg PO BID 07/15/19 07/15/19 History loratadine 10 mg PO DAILY 07/15/19 07/15/19 History metoprolol tartrate [Lopressor] 25 mg PO BID 07/15/19 07/15/19 History nicotine 1 patch TRANSDERMAL DAILY 07/15/19 07/15/19 History pantoprazole [Protonix] 40 mg PO BID 07/15/19 07/15/19 History Past Med/Surg History Medical History (Updated 07/15/19 @ 16:47 by Laurie Mason PA-C) Atrial fibrillation (Chronic) Dyslipidemia GERD (gastroesophageal reflux disease) (Chronic) GI bleed (Acute) Surgical History (Updated 07/15/19 @ 16:47 by Laurie Mason PA-C) History of colonoscopy History of esophagogastroduodenoscopy (EGD) No history of previous surgery (Chronic) Social History Preferred Language: Persian Communication Ability: Effective 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 Beliefs That Will Affect Care: None marital status: Single Current Living Situation: Other Current Living Situation Comment: [employer] Other Information That Helps Us Care for You: No Feels Safe at Home: Yes Safety Concerns: Feels Safe At This Time Smoking Status: Former smoker Hx Alcohol Use: No Hx Substance Use: No Review of Systems Review of Systems: All systems reviewed & are unremarkable except as noted in HPI & below Physical Exam Physical Exam: General: no acute distress, WDWN Head: normocephalic, atraumatic Eyes: PERRL, EOM's intact, conjunctiva non-injected, anicteric ENT: normal inspection external ears, nose, mucous membranes moist Neck: supple, trachea midline Lungs: clear, no respiratory distress, no wheezing/rhonchi/rales CV: RRR, no murmur, no pretibial edema Chest wall: no rashes. +tenderness to palpation Abd: normal BS, soft, non-tender to palpation at this time Ext: no cyanosis, no calf tenderness Neuro: A&O x 3, no focal deficits noted, normal affect Skin: warm, dry Results & Data Vital Signs (Past 12 Hours) Vital Signs Temp Pulse Pulse Resp BP BP Pulse Ox 07/15/19 15:01 63 07/15/19 15:00 80 16 115/79 11/25/19 14:31 71 99 07/15/19 14:30 69 15 119/75 100 07/15/19 14:24 68 12 136/84 99 07/15/19 14:23 65 12 136/84 98 07/15/19 14:00 72 18 97 07/15/19 13:31 71 20 100 07/15/19 13:30 78 76 21 126/74 126/74 98 07/15/19 13:01 69 15 122/83 99 07/15/19 13:00 67 17 07/15/19 12:59 74 20 122/83 100 07/15/19 12:30 73 14 07/15/19 12:18 72 16 07/15/19 11:39 95 07/15/19 11:24 36.6 C 137 H 20 142/89 H 98 07/15/19 10:15 79 17 138/79 Laboratory Results Short CBC 07/15/19 07/15/19 Range/Units 12:01 12:01 WBC 4.77 L (4.8-10.8) K/uL Hgb 11.1 L (14.0-18.0) g/dL Hct 33.8 L (42-52) % Plt Count 264 (130-400) K/uL AST 75 H (15-37) U/L ALT 108 H (12-78) U/L BMP 07/15/19 12:01 Sodium 137 Potassium 4.3 Chloride 107 Carbon Dioxide 24 BUN 18 Creatinine 1.25 Glucose 75 Calcium 9.0 Cardiac Enzymes 07/15/19 Range/Units 12:01 Troponin I < 0.015 (0-0.045) ng/ml Liver Function 07/15/19 Range/Units 12:01 Total Bilirubin 0.4 (0.2-1) mg/dl AST 75 H (15-37) U/L ALT 108 H (12-78) U/L Alkaline Phosphatase 95 (45-117) U/L Albumin 4.0 (3.4-5.0) gm/dl Urine 07/15/19 Range/Units 13:00 Urine Color Yellow Urine Appearance Clear (Clear) Urine pH 7.5 (4.5-7.5) Ur Specific [place] 1.007 (1.000-1.030) Urine Protein Negative (Negative) Urine Glucose (UA) Negative (Negative) Diagnostic Findings CT ABD/PELVIS WITH CONTRAST: IMPRESSION: 1. No acute intra-abdominal pathology. 2. Suspected circumferential bladder wall thickening most likely relates to developing chronic bladder outlet obstruction in the setting of benign prostatic hyperplasia. 3. Diverticulosis coli. No acute diverticulitis. CTA CHEST: IMPRESSION: 1. No pulmonary emboli identified. 2. No acute intrathoracic findings. 3. Mild cardiomegaly. 4. Mild emphysema. ECG Rate (beats per minute): 57 Rhythm: atrial fibrillation Supervising Physician Co-Signing Physician Notes ROS-No Headache, No Visual Changes, No Nausea, No Vomiting, No Fever, No Chills, No Neck Pain or Stiffness, + Chest Wall Pain, No Palpitations, No SOB, No PAIZ, No Cough, No Sputum, No Wheezing, + Abdominal Pain, + Diarrhea, No Hematemesis, No Hemoptysis, No Unexpected Weight Loss, No Flank pain, + Melena, No Hematochezia, No Frequency, No Urgency, No Burning, No Hematuria, No Rashes, No Diaphoresis. Appetite is Normal Physical Exam Gen-AAO x 3, NAD, Afebrile Head-NCAT, EOMI, PERRLA, Anicteric Sclera, No Posterior Pharyngeal Erythema Neck-Supple, No JVD, No Thyromegaly, No Masses, No LAD, No Bruits Lungs-Clear to Auscultation Bilaterally, No Rales, No Rhonchi, No Wheezing, No Crepitus Chest-No S4, +S1, +S2, No S3, No Murmurs, No Rubs, No Gallops, No Ectopy, Pain on palpation Abdomen-Soft, Bowel Sounds Present, Non Tender, Non Distended, No Hepatomegaly, No Splenomegaly, No Palpable Masses, No Rebound, No Rigidity, No Guarding Musculoskeletal-Full Range of Motion Bilaterally, No CVAT Extremities-No Cyanosis, No Clubbing, No Edema Nuero-Cranial Nerves II-XII grossly intact, Motor WNL, DTRs WNL, Strength WNL, Non Focal Psych-Normal Mood (1) Atrial fibrillation Atrial fibrillation type: chronic Qualified Code(s): I48.2 - Chronic atrial fibrillation
[2019-07-15] MEDS ORDERED: ONDANSETRON INJ 2 MG/ML 2 ML VIAL IV PRN (17:25)
[2019-07-15] MEDS ORDERED: SODIUM CHLORIDE 0.9% 250 ML IV PRN (17:25)
[2019-07-15] MEDS: SODIUM CHLORIDE 0.9% 1000ML 1,000 ML IV SCH (17:31)
[2019-07-15] MEDS: ACETAMINOPHEN 325 MG TAB PO PRN (18:09)
[2019-07-15 18:10] LABS: Hematocrit (blood only) 30.6 % (42-52); Hemoglobin 10.1 g/dL (14.0-18.0)
[2019-07-15] MEDS: LATANOPROST 0.005% OP SOLN 2.5 ML BTL OPB SCH (20:33)
[2019-07-15] MEDS: METOPROLOL TARTRATE 25 MG TAB PO SCH (21:30)
[2019-07-15] MEDS: ATORVASTATIN 40 MG TAB PO SCH (21:30)
[2019-07-16] MEDS: PANTOprazole 40 MG in DEXTROSE 5% 100 ML IV SCH ×5 (00:35→20:54)
[2019-07-16] MEDS ORDERED: METOPROLOL TARTRATE 25 MG TAB PO STA (01:06)
[2019-07-16 01:20] LABS: Basophils # (auto) 0.02 K/uL (0-0.2); Basophils % (auto) 0.5 %; Eosinophils # (auto) 0.17 K/uL (0-0.5); Eosinophils % (auto) 3.9 %; Hematocrit (blood only) 31.6 % (42-52); Hemoglobin 10.3 g/dL (14.0-18.0); Immature Granulocytes # (auto) 0.01 K/uL (0.00-0.02); Immature Granulocytes % (auto) 0.2 %; Lymphocytes % (auto) 45.7 %; Mean Corpuscular Hemoglobin 26.8 pg (25-34); Mean Corpuscular Hgb Conc 32.6 g/dL (32-36); Mean Corpuscular Volume 82.1 fL (80-100); Mean Platelet Volume 9.1 fL (7.4-10.4); Monocytes # (auto) 0.32 K/uL (0.11-0.59); Monocytes % (auto) 7.3 %; Neutrophils # (auto) 1.86 K/uL (1.4-6.5); Neutrophils % (auto) 42.4 %; Platelet Count 220 K/uL (130-400); RDW Coefficient of Variation 13.4 % (11.5-14.5); RDW Standard Deviation 40.7 fL (36.4-46.3); Red Blood Count 3.85 M/uL (4.7-6.1); White Blood Count 4.38 K/uL (4.8-10.8)
[2019-07-16] MEDS ORDERED: ALUMINUM/MAGNESIUM SUSP 18 ML, LIDOCAINE HCL VISCOUS 2% 6 ML, BARCODE IDENTIFIER 1 EA PO ONE (01:27)
[2019-07-16 01:42] LABS: Albumin Level 3.1 gm/dl (3.4-5.0); BUN Creatinine Ratio 11.4 (10-20); Calcium 8.5 mg/dl (8.5-10.1); Creatinine Clr Calc Pharmacy 61.5 ml/min; Est GFR (African American) 75.5; Est GFR (Non-African American) 65.1; Magnesium 1.8 mg/dl (1.8-2.4); Potassium 4.4 mmol/L (3.5-5.1)
[2019-07-16 01:45] LABS: INR 1.4 (0.9-1.1); Prothrombin Time 13.8 Seconds (9.0-12.0)
[2019-07-16 01:50] LABS: Bilirubin,Total 0.6 mg/dl (0.2-1); Globulin 3.2 gm/dl (2.5-4.0); Total Protein 6.3 gm/dl (6.4-8.2)
[2019-07-16] MEDS ORDERED: MAGNESIUM SULFATE / D5W 1 GM/100 ML BAG IV ONE (02:39)
[2019-07-16] MEDS: SODIUM CHLORIDE 0.9% 1000ML 1,000 ML IV SCH (03:51)
--- NOTE | 2019-07-16 08:36 | Gastrointestinal Consultation ---
Date of Consultation July 16, 2019 History of Present Illness Attending Physician: Lokesh Logan MD Pt known to service with prior EGD showing duodenitis on coumadin now with melena stable VS, stable hgb, no increase in BUN. CV: IRIR Resp: CTA Abd: Soft A/P: Melena - EGD this am Allergies Allergy/AdvReac Type Severity Reaction Status Date / Time cortisone AdvReac Intermediate Passed out Unverified 07/15/19 13:24 Iodinated Contrast Media AdvReac Intermediate Vomiting Unverified 07/15/19 13:26 BP Drops AdvReac Unknown Unknown Uncoded 07/15/19 13:25 Home Medications Home Medications Medication Instructions Recorded Confirmed Type latanoprost 1 drp OPB HS 05/16/19 07/15/19 History acetaminophen [Mapap 650 mg PO TID PRN 07/15/19 07/15/19 History (acetaminophen)] atorvastatin 40 mg PO HS 07/15/19 07/15/19 History docusate sodium 250 mg PO BID 07/15/19 07/15/19 History loratadine 10 mg PO DAILY 07/15/19 07/15/19 History metoprolol tartrate [Lopressor] 25 mg PO BID 07/15/19 07/15/19 History nicotine 1 patch TRANSDERMAL DAILY 07/15/19 07/15/19 History pantoprazole [Protonix] 40 mg PO BID 07/15/19 07/15/19 History Patient History Medical History Atrial fibrillation (Chronic) Dyslipidemia GERD (gastroesophageal reflux disease) (Chronic) GI bleed (Acute) Surgical History History of colonoscopy History of esophagogastroduodenoscopy (EGD) No history of previous surgery (Chronic) Family History Other Heart disease Social History Preferred Language: Ghanaian Communication Ability: Effective Telephone Claims Representative Required: No Beliefs That Will Affect Care: None marital status: Single Current Living Situation: Other Current Living Situation Comment: [facility] Other Information That Helps Us Care for You: No Feels Safe at Home: Yes Safety Concerns: Feels Safe At This Time Smoking Status: Former smoker Hx Alcohol Use: No Hx Substance Use: No Results & Data Vital Signs (Past 12 Hours) Vital Signs Temp Pulse Pulse Resp BP Pulse Ox 07/16/19 07:19 55 L 07/16/19 07:00 36.3 C L 65 18 117/79 98 07/16/19 05:06 36.8 C 84 17 116/76 100 07/16/19 01:05 74 112/74 07/15/19 23:41 60 07/15/19 23:37 36.8 C 81 19 105/79 97
[2019-07-16] MEDS: METOPROLOL TARTRATE 25 MG TAB PO SCH ×2 (08:40→20:55)
[2019-07-16] MEDS: ACETAMINOPHEN 325 MG TAB PO PRN ×2 (08:41→19:41)
--- NOTE | 2019-07-16 11:59 | Cardiac Catheterization ---
Date of Service July 16, 2019 Cardiac Cath Report Cardiac Cath Report Procedure: 1. Coronary angiography 2. Left heart catheterization 3. Left ventriculogram History: This is a 55-year-old male patient who stopped smoking approximately 6 months ago. He has had previous cardiac catheterizations in [place] and found to have moderate disease with FFR done on the left circumflex as well as a diagonal branch from the LAD with recommendations of medical management. He presented with ongoing activity related shortness of breath and has been referred for cardiac catheterization. Procedure summary: After informed consent was obtained, the patient was brought to the cardiac cat heterization lab where he is prepped and draped in the usual manner. An attempt was made at a right transradial approach but we were not able to advance the guidewire after accessing the artery and therefore this approach was abandoned. A right transfemoral artery approach was utilized with a retrograde cylinder technique. Preformed 5 Nigerien diagnostic catheters utilized for the coronary angiograms. A 5 Nigerien pigtail catheter was utilized for the left heart pressures and left ventriculogram. Following the procedure the patient was evaluated by interventional cardiology. ACC data: Start time 10:43 AM End time 11:57 AM Opening aortic pressure 130/81 Closing aortic pressure 148/92 LV pressure 144/21 Sedation 2 mg intravenous Versed IV fluids 74 cc normal saline Contrast 100 cc Optiray Fluoroscopy time 2.6 minutes Radiation 1065 mGy Dap 8581 mGy/m Right dominant system AUC score 6 Coronary angiography: Selective injections of the right coronary artery revealed to be dominant. The right coronary artery is smooth in appearance widely patent and within normal limits. Selective injections of the left coronary artery revealed the left main trunk to be patent. There is a medium to large size ramus branch from the left main trunk. The left circumflex artery consists of a small to medium sized first marginal, a second small marginal and a third large marginal supplying most of the posterior myocardium. After the takeoff of the second marginal branch there is a long area of 70 to 80% stenoses in the left circumflex artery. The LAD extends all the way around the apex of the heart. The LAD gives off 2 small to medium sized marginal branches before the takeoff of the first septal branch. The LAD system appears to be widely patent. Left ventriculogram: The left ventricle was of normal size with normal systolic function. The mitral valve is competent. The aortic root and ascending aorta have normal morphology and diameter. Summary: The patient essentially has single-vessel coronary artery disease with a long segment of a large marginal branch from the circumflex being severely diseased. Recommendations: Recommendations are for the patient to be evaluated by a interventional cardiology for possible stent placement in the left circumflex artery.
[2019-07-16 12:21] LABS: Hematocrit (blood only) 37.6 % (42-52); Hemoglobin 12.4 g/dL (14.0-18.0)
[2019-07-16 12:32] LABS: INR 1.2 (0.9-1.1); Prothrombin Time 12.4 Seconds (9.0-12.0)
[2019-07-16 12:55] LABS: BUN Creatinine Ratio 9.4 (10-20); Creatinine Clr Calc Pharmacy 57.6 ml/min; Est GFR (African American) 69.9; Est GFR (Non-African American) 60.3; Magnesium 2.2 mg/dl (1.8-2.4); Potassium 4.3 mmol/L (3.5-5.1)
--- NOTE | 2019-07-16 13:12 | Cardiology Consultation ---
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 The patient has a history of posterior leaflet mitral valve prolapse with significant mitral regurgitation which is most likely the etiology of his atrial fibrillation over time. He has been on long-term anticoagulation with Coumadin. He had GI bleeding in April and now has similar symptoms along with melena. I believe that he should undergo his EGD and colonoscopy if necessary. From a cardiac standpoint he is currently optimally medically managed. The arrhythmia seen last evening I believe was a right ventricular outflow tract tachycardia. He is already on a beta-hussein of which I will increase the dosage. I will also obtain a repeat echocardiogram however, the echocardiogram should not delay his endoscopy. His biggest risk is from the GI bleeding. History of Present Illness Attending Physician: Lokesh Logan MD History of Present Illness This is a 58-year-old inmate at [facility]. He is not a good historian and most of the information is taken from the medical record however, he is able to relate to me that he was in good health until approximately 10 years ago when he fell through the roof of a building while at work. He sustained multiple trauma. He does not provide a good history in regard to his heart. He states in 2016 when he was at another facility they obtained an EKG and at that time he may have been placed on Coumadin and treated for atrial fibrillation. In any case, in April he had GI bleeding he was taken off of his warfarin at that time for short period. GI bleeding may have been the result of anticoagulation and duodenitis. Patient states he has never felt well since returning back to senior care. He is noticed melanotic stools again and has been readmitted. An echocardiogram completed last admission reveals mitral valve prolapse with moderately severe mitral regurgitation. The etiology of his atrial fibrillation may have been chronic mitral valve disease. He is never had a history of coronary artery disease. Never underwent a cardiac catheterization. He is scheduled for an EGD today but sometime last evening he had a 21 beat episode of wide-complex tachycardia. The morphology is tachycardia appears to be right ventricular outflow tract. Believe, the patient was asymptomatic during this event. He has had no significant arrhythmias other than the atrial fibrillation following that event. He has no current cardiac complaints during my interview. Allergies Allergy/AdvReac Type Severity Reaction Status Date / Time No Known Allergies Allergy Unverified 07/16/19 19:56 Home Medications Home Medications Medication Instructions Recorded Confirmed Type latanoprost 1 drp OPB HS 05/16/19 07/15/19 History acetaminophen [Mapap 650 mg PO TID PRN 07/15/19 07/15/19 History (acetaminophen)] atorvastatin 40 mg PO HS 07/15/19 07/15/19 History docusate sodium 250 mg PO BID 07/15/19 07/15/19 History loratadine 10 mg PO DAILY 07/15/19 07/15/19 History metoprolol tartrate [Lopressor] 25 mg PO BID 07/15/19 07/15/19 History nicotine 1 patch TRANSDERMAL DAILY 07/15/19 07/15/19 History pantoprazole [Protonix] 40 mg PO BID 07/15/19 07/15/19 History Patient History Medical History Atrial fibrillation (Chronic) Dyslipidemia GERD (gastroesophageal reflux disease) (Chronic) GI bleed (Acute) Surgical History History of colonoscopy History of esophagogastroduodenoscopy (EGD) No history of previous surgery (Chronic) Family History Other Heart disease Social History Preferred Language: Andorran Communication Ability: Effective Wood Filler Required: No Beliefs That Will Affect Care: None marital status: Single Current Living Situation: Other Current Living Situation Comment: [facility] Other Information That Helps Us Care for You: No Feels Safe at Home: Yes Safety Concerns: Feels Safe At This Time Smoking Status: Former smoker Hx Alcohol Use: No Hx Substance Use: No Review of Systems Review of Systems: All systems reviewed & are unremarkable except as noted in HPI & below Nothing additional to add. Physical Exam Physical Exam: General: no acute distress and stated age Head: normocephalic, no masses, lesions, tenderness or abnormalities Eyes: conjunctiva are pink and non-injected, sclera clear Neck: supple, no adenopathy, no bruits, normal jugular venous pulse, no hepatojugular reflux Chest: normal shape and normal respiratory effort Lungs: clear to auscultation and percussion Cardiac Exam: - irregular rate & rhythm, holosystolic murmur at the apex of the heart radiating to the axilla- normal S1, normal S2 Pulses: 2(+) throughout Abdomen: abdomen soft, non-tender, no abnormal masses and no hepatosplenomegaly Musculoskeletal: no gait disturbance, no joint inflammation, no deforming arthritis Extremities: no edema and no cyanosis Neuro: grossly normal exam Results & Data Vital Signs (Past 12 Hours) Vital Signs Temp Pulse Pulse Resp BP Pulse Ox 07/16/19 08:39 82 07/16/19 07:19 55 L 07/16/19 07:00 36.3 C L 65 18 117/79 98 07/16/19 05:06 36.8 C 84 17 116/76 100 Laboratory Results Laboratory Results - last 24 hr 07/15/19 07/15/19 07/15/19 14:34 17:58 17:58 WBC RBC Hgb 10.1 L Hct 30.6 L MCV MCH MCHC RDW Std Deviation RDW Coeff of Brody Plt Count MPV Immature Gran % (Auto) Neut % (Auto) Lymph % (Auto) Fisher % (Auto) Eos % (Auto) Baso % (Auto) Immature Gran # (Auto) Neut # (Auto) Lymph # (Auto) Fisher # (Auto) Eos # (Auto) Baso # (Auto) PT INR Sodium Potassium Chloride Carbon Dioxide Anion Gap BUN Creatinine Est Cr Clr Drug Dosing Est GFR ( Amer) Est GFR (Non-Af Amer) BUN/Creatinine Ratio Glucose POC Glucose Calcium Magnesium Total Bilirubin AST ALT Alkaline Phosphatase Troponin I < 0.015 Total Protein Albumin Globulin Albumin/Globulin Ratio Blood Type O Positive Antibody Screen NEGATIVE Crossmatch See Detail 07/16/19 07/16/19 07/16/19 00:11 01:08 01:08 WBC 4.38 L RBC 3.85 L Hgb 10.3 L Hct 31.6 L MCV 82.1 MCH 26.8 MCHC 32.6 RDW Std Deviation 40.7 RDW Coeff of Brody 13.4 Plt Count 220 MPV 9.1 Immature Gran % (Auto) 0.2 Neut % (Auto) 42.4 Lymph % (Auto) 45.7 Fisher % (Auto) 7.3 Eos % (Auto) 3.9 Baso % (Auto) 0.5 Immature Gran # (Auto) 0.01 Neut # (Auto) 1.86 Lymph # (Auto) 2.00 Fisher # (Auto) 0.32 Eos # (Auto) 0.17 Baso # (Auto) 0.02 PT 13.8 H INR 1.4 H Sodium Potassium Chloride Carbon Dioxide Anion Gap BUN Creatinine Est Cr Clr Drug Dosing Est GFR ( Amer) Est GFR (Non-Af Amer) BUN/Creatinine Ratio Glucose POC Glucose Calcium Magnesium Total Bilirubin AST ALT Alkaline Phosphatase Troponin I < 0.015 Total Protein Albumin Globulin Albumin/Globulin Ratio Blood Type Antibody Screen Crossmatch 07/16/19 07/16/19 07/16/19 01:08 01:12 12:00 WBC RBC Hgb 12.4 L Hct 37.6 L MCV MCH MCHC RDW Std Deviation RDW Coeff of Brody Plt Count MPV Immature Gran % (Auto) Neut % (Auto) Lymph % (Auto) Fisher % (Auto) Eos % (Auto) Baso % (Auto) Immature Gran # (Auto) Neut # (Auto) Lymph # (Auto) Fisher # (Auto) Eos # (Auto) Baso # (Auto) PT INR Sodium 140 Potassium 4.4 Chloride 109 H Carbon Dioxide 26 Anion Gap 5.0 BUN 14 Creatinine 1.21 Est Cr Clr Drug Dosing 61.5 Est GFR ( Amer) 75.5 Est GFR (Non-Af Amer) 65.1 BUN/Creatinine Ratio 11.4 Glucose 89 POC Glucose 93 Calcium 8.5 Magnesium 1.8 Total Bilirubin 0.6 AST 33 ALT 73 Alkaline Phosphatase 74 Troponin I Total Protein 6.3 L D Albumin 3.1 L Globulin 3.2 Albumin/Globulin Ratio 1.0 Blood Type Antibody Screen Crossmatch 07/16/19 07/16/19 12:00 12:00 WBC RBC Hgb Hct MCV MCH MCHC RDW Std Deviation RDW Coeff of Brody Plt Count MPV Immature Gran % (Auto) Neut % (Auto) Lymph % (Auto) Fisher % (Auto) Eos % (Auto) Baso % (Auto) Immature Gran # (Auto) Neut # (Auto) Lymph # (Auto) Fisher # (Auto) Eos # (Auto) Baso # (Auto) PT 12.4 H INR 1.2 H Sodium 139 Potassium 4.3 Chloride 110 H Carbon Dioxide 24 Anion Gap 5.0 BUN 12 Creatinine 1.29 Est Cr Clr Drug Dosing 57.6 Est GFR ( Amer) 69.9 Est GFR (Non-Af Amer) 60.3 BUN/Creatinine Ratio 9.4 L Glucose 84 POC Glucose Calcium 9.0 Magnesium 2.2 Total Bilirubin AST ALT Alkaline Phosphatase Troponin I Total Protein Albumin Globulin Albumin/Globulin Ratio Blood Type Antibody Screen Crossmatch
[2019-07-16] MEDS: TRAMADOL HCL 50 MG TABLET PO PRN (18:08)
--- NOTE | 2019-07-16 20:49 | Hospitalist Progress Note ---
Date of Service July 16, 2019 Assessment & Plan (1) GI bleed: On warfarin for AF. Now with melena. H/H stable. Hemodynamically stable. Anticipated EGD tomorrow if cardiac status stable. (2) Arrhythmia: 28 beat run of wide-complex tachycardia noted on telemetry. Mg borderline low @ 1.8- replaced. Cardiology consulted. Continue cardiac monitoring. (3) Atrial fibrillation: Chronic AF. Rate controlled on metoprolol. Warfarin held for GI bleed. (4) DVT prophylaxis: No anticoagulants because of GI bleed. SCD's. (5) Discharge planning issues: Anticipated return to [facility] under care of medical team there. Subjective Recheck for multiple problems. Patient seen in their room around 1610. Admitted for GI bleed. Recent melena. No nausea, vomiting. On warfarin for AF- held a few days ago. 28 beat run of wide complex tachycardia last night. EGD postponed pending Cardiology eval. Review of Systems: As noted above. Physical Exam Constitutional: no acute distress Respiratory: no respiratory distress Auscultation: lungs clear to auscultation bilaterally Cardiovascular: Rate/Rhythm: + irregularly irregular Heart Sounds: + murmur (II/ systolic murmur at apex); no gallop and no cardiac rub Vessels: no JVD Extremities: no calf tenderness and no edema Gastrointestinal (Abdomen): normal bowel sounds, soft, nontender, no hepatosplenomegaly Skin: no rashes, warm and dry Psychiatric: Orientation: alert and oriented x 3 Results & Data Vital Signs (Past 12 Hours) Vital Signs Temp Pulse Pulse Resp BP BP Pulse Ox 07/16/19 19:34 36.6 C 60 20 112/72 98 07/16/19 17:41 79 07/16/19 15:09 36.4 C L 67 20 147/87 H 100 Laboratory Results Laboratory Results - last 24 hr 07/16/19 07/16/19 07/16/19 01:08 01:08 01:08 WBC 4.38 L RBC 3.85 L Hgb 10.3 L Hct 31.6 L MCV 82.1 MCH 26.8 MCHC 32.6 RDW Std Deviation 40.7 RDW Coeff of Brody 13.4 Plt Count 220 MPV 9.1 Immature Gran % (Auto) 0.2 Neut % (Auto) 42.4 Lymph % (Auto) 45.7 Curry % (Auto) 7.3 Eos % (Auto) 3.9 Baso % (Auto) 0.5 Immature Gran # (Auto) 0.01 Neut # (Auto) 1.86 Lymph # (Auto) 2.00 Curry # (Auto) 0.32 Eos # (Auto) 0.17 Baso # (Auto) 0.02 PT 13.8 H INR 1.4 H Sodium 140 Potassium 4.4 Chloride 109 H Carbon Dioxide 26 Anion Gap 5.0 BUN 14 Creatinine 1.21 Est Cr Clr Drug Dosing 61.5 Est GFR ( Amer) 75.5 Est GFR (Non-Af Amer) 65.1 BUN/Creatinine Ratio 11.4 Glucose 89 POC Glucose Calcium 8.5 Magnesium 1.8 Total Bilirubin 0.6 AST 33 ALT 73 Alkaline Phosphatase 74 Total Protein 6.3 L D Albumin 3.1 L Globulin 3.2 Albumin/Globulin Ratio 1.0 07/16/19 07/16/19 07/16/19 01:12 12:00 12:00 WBC RBC Hgb 12.4 L Hct 37.6 L MCV MCH MCHC RDW Std Deviation RDW Coeff of Brody Plt Count MPV Immature Gran % (Auto) Neut % (Auto) Lymph % (Auto) Curry % (Auto) Eos % (Auto) Baso % (Auto) Immature Gran # (Auto) Neut # (Auto) Lymph # (Auto) Curry # (Auto) Eos # (Auto) Baso # (Auto) PT 12.4 H INR 1.2 H Sodium Potassium Chloride Carbon Dioxide Anion Gap BUN Creatinine Est Cr Clr Drug Dosing Est GFR ( Amer) Est GFR (Non-Af Amer) BUN/Creatinine Ratio Glucose POC Glucose 93 Calcium Magnesium Total Bilirubin AST ALT Alkaline Phosphatase Total Protein Albumin Globulin Albumin/Globulin Ratio 07/16/19 12:00 WBC RBC Hgb Hct MCV MCH MCHC RDW Std Deviation RDW Coeff of Brody Plt Count MPV Immature Gran % (Auto) Neut % (Auto) Lymph % (Auto) Curry % (Auto) Eos % (Auto) Baso % (Auto) Immature Gran # (Auto) Neut # (Auto) Lymph # (Auto) Curry # (Auto) Eos # (Auto) Baso # (Auto) PT INR Sodium 139 Potassium 4.3 Chloride 110 H Carbon Dioxide 24 Anion Gap 5.0 BUN 12 Creatinine 1.29 Est Cr Clr Drug Dosing 57.6 Est GFR ( Amer) 69.9 Est GFR (Non-Af Amer) 60.3 BUN/Creatinine Ratio 9.4 L Glucose 84 POC Glucose Calcium 9.0 Magnesium 2.2 Total Bilirubin AST ALT Alkaline Phosphatase Total Protein Albumin Globulin Albumin/Globulin Ratio ECG Additional Comments: EKG performed at 0121 reviewed and demonstrated AF 70 / min, no acute changes.
[2019-07-16] MEDS: ALUMINUM/MAGNESIUM/SIMETH (MAALOX MAX) 30 ML UDC PO PRN (20:54)
[2019-07-16] MEDS: ATORVASTATIN 40 MG TAB PO SCH (20:55)
[2019-07-16] MEDS: LATANOPROST 0.005% OP SOLN 2.5 ML BTL OPB SCH (20:56)
[2019-07-17] MEDS: PANTOprazole 40 MG in DEXTROSE 5% 100 ML IV SCH ×3 (01:57→14:18)
[2019-07-17 08:16] LABS: Hemoglobin 11.1 g/dL (14.0-18.0)
--- NOTE | 2019-07-17 08:24 | History & Physical Report ---
Date of Service July 17, 2019 Assessment & Plan (1) GI bleed: 58 year old male w/ afib on coumadin presenting w/ anemia, melena. Recent EGD/colon reviewed - ?duodentitis vs AVM. Was on OP PPI w/ resumption of coumadin. Since admission, AC held, HGB trended, remained hemodynamically stable . NPO for EGD this AM Please see EGD report for additional recommendations, plans. Thank you for allowing us to participate in the care of this patient. Please call with any acute changes, questions or concerns. Please see addendum below with additional recommendation from my supervising physician. Attg add: I interviewed and examined t, reviewed chart and labs. Pt with stable hgb, EGD this am. History of Present Illness Chief Complaint: melena, anemia Primary Care Provider: JONATHAN Soares 58 year old male with afib on coumadin presenting with anemia, dark stools. coumadin held made NPO for diagnostic EGD Notes last dark stool was about 48 hours ago No BM at all yesterday VSS, HGB improving Allergies Allergy/AdvReac Type Severity Reaction Status Date / Time No Known Allergies Allergy Unverified 07/16/19 19:56 Home Medications Home Medications Medication Instructions Recorded Confirmed Type latanoprost 1 drp OPB HS 05/16/19 07/15/19 History acetaminophen [Mapap 650 mg PO TID PRN 07/15/19 07/15/19 History (acetaminophen)] atorvastatin 40 mg PO HS 07/15/19 07/15/19 History docusate sodium 250 mg PO BID 07/15/19 07/15/19 History loratadine 10 mg PO DAILY 07/15/19 07/15/19 History metoprolol tartrate [Lopressor] 25 mg PO BID 07/15/19 07/15/19 History nicotine 1 patch TRANSDERMAL DAILY 07/15/19 07/15/19 History pantoprazole [Protonix] 40 mg PO BID 07/15/19 07/15/19 History Past Med/Surg History Medical History Atrial fibrillation (Chronic) Dyslipidemia GERD (gastroesophageal reflux disease) (Chronic) GI bleed (Acute) Surgical History History of colonoscopy History of esophagogastroduodenoscopy (EGD) No history of previous surgery (Chronic) Family History Other Heart disease Social History Preferred Language: Vietnamese Communication Ability: Effective Strategic Partnership Specialist Required: No Beliefs That Will Affect Care: None marital status: Single Current Living Situation: Other Current Living Situation Comment: [facility] Other Information That Helps Us Care for You: No Feels Safe at Home: Yes Safety Concerns: Feels Safe At This Time Smoking Status: Former smoker Hx Alcohol Use: No Hx Substance Use: No Review of Systems no fever, no chills and no fatigue no cough and no dyspnea no chest pain and no dyspnea + abdominal pain; no nausea, no coffee ground emesis, no blood in stools and no melena Physical Exam Constitutional: well developed and well nourished; no acute distress Neck: trachea midline Respiratory: normal respiratory effort, lungs clear to auscultation Cardiovascular: RRR, no murmur, no edema Gastrointestinal (Abdomen): Inspection/Auscultation: normal bowel sounds Percussion/Palpation: + abdomen tender (generalized pain w/ palpation) and abdomen soft; no guarding and abdomen not rigid Skin: no rashes, warm and dry Results & Data Vital Signs (Past 12 Hours) Vital Signs Temp Pulse Pulse Resp BP Pulse Ox 07/17/19 07:00 36.4 C L 72 18 127/81 99 07/17/19 05:07 103/64 07/17/19 04:19 36.4 C L 60 20 92/58 L 98 07/17/19 01:00 63 07/16/19 23:52 36.6 C 57 L 18 106/61 97 Laboratory Results 07/17/19 07/17/19 07/17/19 Range/Units 08:09 08:02 08:02 Hgb 11.1 L (14.0-18.0) g/dL Hct 34.0 L (42-52) % PT (9.0-12.0) Seconds INR (0.9-1.1) Sodium Pending (136-145) mmol/L Potassium Pending (3.5-5.1) mmol/L Chloride Pending (98-107) mmol/L Carbon Dioxide Pending (21-32) mmol/L Anion Gap Pending (3-11) BUN Pending (7-18) mg/dl Creatinine Pending (0.6-1.4) mg/dl Est Cr Clr Drug Dosing Pending ml/min Est GFR ( Amer) Pending Est GFR (Non-Af Amer) Pending BUN/Creatinine Ratio Pending (10-20) Glucose Pending (70-99) mg/dl POC Glucose 84 (70-99) Calcium Pending (8.5-10.1) mg/dl Magnesium Pending (1.8-2.4) mg/dl 07/16/19 07/16/19 07/16/19 Range/Units 12:00 12:00 12:00 Hgb 12.4 L (14.0-18.0) g/dL Hct 37.6 L (42-52) % PT 12.4 H (9.0-12.0) Seconds INR 1.2 H (0.9-1.1) Sodium 139 (136-145) mmol/L Potassium 4.3 (3.5-5.1) mmol/L Chloride 110 H (98-107) mmol/L Carbon Dioxide 24 (21-32) mmol/L Anion Gap 5.0 (3-11) BUN 12 (7-18) mg/dl Creatinine 1.29 (0.6-1.4) mg/dl Est Cr Clr Drug Dosing 57.6 ml/min Est GFR ( Amer) 69.9 Est GFR (Non-Af Amer) 60.3 BUN/Creatinine Ratio 9.4 L (10-20) Glucose 84 (70-99) mg/dl POC Glucose (70-99) Calcium 9.0 (8.5-10.1) mg/dl Magnesium 2.2 (1.8-2.4) mg/dl Code Status & VTE Plan VTE Prophylaxis Plan VTE Prophylaxis will be ordered: Yes
[2019-07-17 08:46] LABS: BUN Creatinine Ratio 7.8 (10-20); Calcium 8.9 mg/dl (8.5-10.1); Creatinine Clr Calc Pharmacy 46.5 ml/min; Est GFR (African American) 53.9; Est GFR (Non-African American) 46.5; Magnesium 1.8 mg/dl (1.8-2.4)
--- NOTE | 2019-07-17 08:46 | Anesthesiology Consultation ---
Date of Service July 17, 2019 Assessment & Plan (1) Encounter for pre-operative examination: Chart Review Chart Review: Acceptable Risk for Surgery and Patient NOT seen in Pre Admission Testing Consults Requested none History Surgery Operation Date: 07/16/19 15:45 Proposed Procedures p Esophagogastroduodenoscopy Dr Lonnie Gillette Operation Date: 07/17/19 16:00 Proposed Procedures p Esophagogastroduodenoscopy Dr Lonnie Gillette Height/Weight Height: 5 ft 7 in Weight: 69.2 kg Allergies Allergy/AdvReac Type Severity Reaction Status Date / Time No Known Allergies Allergy Unverified 07/16/19 19:56 Medications Home Medications Medication Instructions Recorded Confirmed Last Taken latanoprost 1 drp OPB HS 05/16/19 07/15/19 07/14/19 acetaminophen [Mapap 650 mg PO TID PRN 07/15/19 07/15/19 Unknown (acetaminophen)] atorvastatin 40 mg PO HS 07/15/19 07/15/19 07/14/19 docusate sodium 250 mg PO BID 07/15/19 07/15/19 Unknown loratadine 10 mg PO DAILY 07/15/19 07/15/19 07/15/19 metoprolol tartrate [Lopressor] 25 mg PO BID 07/15/19 07/15/19 07/15/19 nicotine 1 patch TRANSDERMAL DAILY 07/15/19 07/15/19 07/15/19 pantoprazole [Protonix] 40 mg PO BID 07/15/19 07/15/19 07/15/19 Active Medications Generic Name Dose Route Start Last Admin Trade Name Freq PRN Reason Stop Dose Admin Acetaminophen 650 mg 07/15/19 17:25 07/16/19 19:41 Tylenol PO 08/14/19 17:24 650 mg Q4H PRN Administration Pain or Fever Al Hydrox/Mg Hydrox/Simethicone 30 ml 07/16/19 19:56 07/16/19 20:54 Maalox Max PO 08/15/19 19:55 30 ml Q6H PRN Administration Indigestion Atorvastatin Calcium 40 mg 07/15/19 21:00 07/16/19 20:55 Lipitor PO 08/14/19 20:59 40 mg HS TRISTA Administration Pantoprazole Sodium 40 mg/ 100 mls @ 20 mls/hr 07/15/19 14:45 07/17/19 07:54 Dextrose IV 08/14/19 14:44 0 mls/hr Q5H TRISTA Infusion Latanoprost 1 drops 07/15/19 21:00 07/16/19 20:56 Xalatan Oph OPB 08/14/19 20:59 1 drops HS TRISTA Administration Metoprolol Tartrate 37.5 mg 07/16/19 21:00 07/16/19 20:55 Lopressor PO 08/15/19 20:59 37.5 mg BID TRISTA Administration Tramadol HCl 25 - 50 mg 07/16/19 01:26 07/16/19 18:08 Ultram PO 08/15/19 01:25 50 mg Q4H PRN Administration Pain NPO Date Last Intake of Fluids: 07/16/19 Time Last Intake of Fluids: 23:59 Date Last Intake of Solids: 07/16/19 Time Last Intake of Solids: 23:59 Past Medical History Medical History Atrial fibrillation (Chronic) Dyslipidemia GERD (gastroesophageal reflux disease) (Chronic) GI bleed (Acute) Past Family History Family History Other Heart disease Past Surgical History Surgical History History of colonoscopy History of esophagogastroduodenoscopy (EGD) No history of previous surgery (Chronic) Social History Smoking Status: Former smoker Hx Alcohol Use: No Hx Substance Use: No substance use type: marijuana Physical Exam Vital Signs Last Vital Signs Temp 36.6 C 07/17/19 08:27 Pulse 68 07/17/19 08:27 Resp 18 07/17/19 08:27 BP 128/76 07/17/19 08:27 Pulse Ox 100 07/17/19 08:27 Testing Laboratory Results 07/17/19 08:02 PT 12.4 Seconds (9.0-12.0) H 07/16/19 12:00 INR 1.2 (0.9-1.1) H 07/16/19 12:00 APTT 26.1 Seconds (21.0-31.0) 07/15/19 12:01 Urine Color Yellow 07/15/19 13:00 Urine Appearance Clear (Clear) 07/15/19 13:00 Urine pH 7.5 (4.5-7.5) 07/15/19 13:00 Ur Specific [place] 1.007 (1.000-1.030) 07/15/19 13:00 Urine Protein Negative (Negative) 07/15/19 13:00 Urine Glucose (UA) Negative (Negative) 07/15/19 13:00 Urine Ketones Negative (Negative) 07/15/19 13:00 Urine Nitrite Negative (Negative) 07/15/19 13:00 Ur Leukocyte Esterase Negative (Negative) 07/15/19 13:00 Blood Type O Positive 07/15/19 14:34 Antibody Screen NEGATIVE 07/15/19 14:34 07/17/19 08:09 POC Glucose 84
[2019-07-17] MEDS ORDERED: PROPOFOL IV EMULSION 10 MG/ML 20 ML VIAL IV ONE (09:00)
[2019-07-17] MEDS ORDERED: LIDOCAINE HCL 2% 2 ML VIAL/AMP(20MG/ML) INFIL ONE (09:00)
[2019-07-17] MEDS ORDERED: KETAMINE HCL INJ 50 MG/ML 10 ML VIAL ONE (09:00)
--- NOTE | 2019-07-17 09:45 | GI REPORT ---
Patient Name: Lev Vidales Procedure Date: 07/17/2019 8:56 AM Date of : 1960 Admit Type: Inpatient Age: 58 Gender: Male Attending MD: Jacinto Gillette MD Procedure: Upper GI endoscopy Providers: Jacinto Gillette MD Referring MD: Rodger CASTILLO Indications: Melena Medicines: See the Anesthesia note for documentation of the administered medications Complications: No immediate complications. Estimated Blood Loss: Estimated blood loss: none. Procedure: Pre-Anesthesia Assessment: - ASA Grade Assessment: IV - A patient with severe systemic disease that is a constant threat to life. After obtaining informed consent, the endoscope was passed under direct vision. Throughout the procedure, the patient's blood pressure, pulse, and oxygen saturations were monitored continuously. The Endoscope was introduced through the mouth, and advanced to the third part of duodenum. The upper GI endoscopy was accomplished without difficulty. The patient tolerated the procedure well. Findings: The GE junction was at 40 cm. The Z line was mildly irregular, and was biopsied. The esophagus was otherwise normal. The stomach was normal. As before, there was moderate patchy erythema of the duodenal bulb. This appeared mildly improved from prior exam in April. The area of erythema was biopsied. There was appropriate, small volume, self limited oozing post biopsy. There were multiple punctate red spots in the second portion of the duodenum, as before. There was a small diverticulum in the distal duodenum. Impression: Irregular Z line. Erythema in duodenal bulb, unchanged from prior, biopsied. Punctate red spots in distal duodenum. The persistence of these changes, and the absence of duodenitis on histology from last exam, suggest that erythema and red spots are small AVM's. Recommendation: - Discharge patient to floor. See [facility] for further recommendations. Jacinto Gillette M.D. Jacinto Gillette MD 07/17/2019 9:44:41 AM This report has been signed electronically. Note Initiated On: 07/17/2019 8:56 AM Number of Addenda: 0 I attest to the content of the Intraoperative Record and orders documented therein, exceptions below {[id number]}
--- NOTE | 2019-07-17 09:49 | Anesthesiology Progress Note ---
Date of Service July 17, 2019 Anesthesia Post Procedure Vital Signs Vital Signs: Temp Pulse Pulse Resp BP BP Pulse Ox 07/17/19 09:42 83 18 106/54 L 97 07/17/19 09:26 36.6 C 89 18 110/64 97 07/17/19 08:27 36.6 C 68 18 128/76 100 07/17/19 07:00 36.4 C L 72 18 127/81 99 07/17/19 05:07 103/64 07/17/19 04:19 36.4 C L 60 20 92/58 L 98 07/17/19 01:00 63 07/16/19 23:52 36.6 C 57 L 18 106/61 97 07/16/19 19:34 36.6 C 60 20 112/72 98 07/16/19 17:41 79 07/16/19 15:09 36.4 C L 67 20 147/87 H 100 Pain Intensity Chest: Pain Intensity: 2 Bilateral Abdomen: Pain Intensity: 2 Transfer of Care Handoff Completed per policy Notes Mental Status: alert / awake / arousable Patient Amnestic to Procedure: Yes Nausea / Vomiting: adequately controlled Pain: adequately controlled Airway Patency, RR, SpO2: stable & adequate BP & HR: stable & adequate Hydration State: stable & adequate Anesthetic Complications: no major complications apparent and Pt Satisfied with anesthetic care
[2019-07-17] MEDS: METOPROLOL TARTRATE 25 MG TAB PO SCH ×2 (10:20→20:40)
[2019-07-17] MEDS: ACETAMINOPHEN 325 MG TAB PO PRN ×2 (10:22→15:58)
[2019-07-17] MEDS: ALUMINUM/MAGNESIUM/SIMETH (MAALOX MAX) 30 ML UDC PO PRN (11:21)
--- NOTE | 2019-07-17 14:19 | Hospitalist Progress Note ---
Date of Service July 17, 2019 Assessment & Plan (1) GI bleed: Prior history of anemia thought secondary to GI bleed, had EGD in the past showing evidence of duodenitis Admitted with concern for melena Risk for GI bleed: On warfarin for AF. Active GI bleeding noted since admission hemodynamically stable H/H stable. No acute drop noted Should input from GI That is post EGD today 07/17/2019 EGD shows normal esophagus, normal stomach, improvement of patchy erythema on the abdominal polyp, multiple punctate red spot in the second portion of the duodenum similar to prior, no active bleeding noted Concern for possible small AVMs DC IV Protonix drip, changed to p.o. Protonix twice daily Plan for colonoscopy on Monday (2) Arrhythmia: No further episode Appreciate input from cardiology, Recommends continue metoprolol, monitoring telemetry (3) Atrial fibrillation: Chronic AF.in a setting of severe valvular heart disease /with significant mitral valve prolapse /significant mitral regurgitation/dilated left atrium noted in recent echo appreciate input from Cardiology chronic atrial fibrillation which has been treated with rate control. recommends to cont Metoprolol Coumadin on hold for GI bleed plan for colonoscopy on Monday will follow GI recommendation to resume PO Coumadin (4) DVT prophylaxis: No anticoagulants because of GI bleed. SCD's. (5) Discharge planning issues: Anticipated return to [facility] under care of medical team there. Subjective S/p EGD today patient seen after returning to floor, denies of any soreness Of throat post EGD procedure diet advanced to AHA tolerated well, no nausea vomiting or abdominal bloating after meals, no bowel movement so far, cough no shortness of breath no fever or chills Physical Exam Constitutional: well developed and well nourished; no acute distress Eyes: PERRL, conjunctivae normal, anicteric sclerae ENMT: external ear and nose normal, oropharynx normal Neck: normal visual inspection and trachea midline Respiratory: normal respiratory effort, lungs clear to auscultation normal respiratory effort; no respiratory distress Auscultation: lungs clear to auscultation bilaterally Cardiovascular: RRR, no murmur, no edema Rate/Rhythm: + irregularly irregular; + abnormal rate and + abnormal rhythm Heart Sounds: + murmur (II/ systolic murmur at apex); no gallop and no cardiac rub Vessels: no JVD Extremities: no calf tenderness and no edema Gastrointestinal (Abdomen): normal bowel sounds, soft, nontender, no hepatosplenomegaly Inspection/Auscultation: normal bowel sounds Percussion/Palpation: + abdomen tender (generalized pain w/ palpation) and abdomen soft; no guarding and abdomen not rigid Musculoskeletal: no cyanosis or clubbing, extremities motor strength 5/5 Spine: no pain with cervical ROM Skin: no rashes, warm and dry Neurologic: PERRL, EOMI, accommodation nl, no face palsy, no dysarthria moves all extremities Psychiatric: Orientation: alert and oriented x 3 Affect: euthymic affect Results & Data Vital Signs (Past 12 Hours) Vital Signs Temp Pulse Resp BP BP Pulse Ox 07/17/19 10:52 36.6 C 71 16 134/77 100 07/17/19 10:16 36.4 C L 83 18 132/80 99 07/17/19 09:57 75 18 101/69 96 07/17/19 09:42 83 18 106/54 L 97 07/17/19 09:26 36.6 C 89 18 110/64 97 07/17/19 08:27 36.6 C 68 18 128/76 100 07/17/19 07:00 36.4 C L 72 18 127/81 99 07/17/19 05:07 103/64 07/17/19 04:19 36.4 C L 60 20 92/58 L 98
[2019-07-17] MEDS ORDERED: METOPROLOL TARTRATE 1 MG/ML VIAL IV PRN (14:21)
[2019-07-17] MEDS ORDERED: LACTATED RINGER'S 1,000 ML IV SCH (14:30)
--- NOTE | 2019-07-17 15:08 | Cardiology Progress Note ---
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 This is a chronic problem and has most likely been there for years. His left atrium is dilated consistent with this diagnosis and has resulted in atrial fibrillation. He should be on long-term anticoagulation to reduce his stroke risk, unfortunately he has AV malformations and has a higher risk of bleeding. I had a long discussion with the patient and tried to emphasize the risks versus benefit of anticoagulation. We came to the consensus together that we will restart the Coumadin. He has a colonoscopy that will be scheduled as an outpatient. In regard to the mitral valve, eventually he will need a work-up and then a mitral valve repair. I am uncertain how this will be done through the long-term system but we will contact the long-term doctor and let them know our considerations. Subjective I had a long discussion with patient regarding his mitral valve regurgitation and atrial fibrillation in light of the AV malformations noted by the GI service. Accordingly, he has had bleeding in the past and states he was at [facility] where they cauterized the AV malformations. Unfortunately this is a chronic problem especially for someone who is on anticoagulation. He has no new cardiac complaints. Review of Systems Review of Systems: All systems reviewed & are unremarkable except as noted in HPI & below Nothing additional to add Physical Exam Physical Exam: General: no acute distress and stated age Head: normocephalic, no masses, lesions, tenderness or abnormalities Eyes: conjunctiva are pink and non-injected, sclera clear Neck: supple, no adenopathy, no bruits, normal jugular venous pulse, no hepatojugular reflux Chest: normal shape and normal respiratory effort Lungs: clear to auscultation and percussion Cardiac Exam: - irregular rate & rhythm, holosystolic murmur apex of the heart- normal S1, normal S2 Pulses: 2(+) throughout Abdomen: abdomen soft, non-tender, no abnormal masses and no hepatosplenomegaly Musculoskeletal: no gait disturbance, no joint inflammation, no deforming arthritis Extremities: no edema and no cyanosis Neuro: grossly normal exam Results & Data Vital Signs (Past 12 Hours) Vital Signs Temp Pulse Resp BP BP Pulse Ox 11/27/19 14:45 36.8 C 78 18 122/74 98 07/17/19 10:52 36.6 C 71 16 134/77 100 07/17/19 10:16 36.4 C L 83 18 132/80 99 07/17/19 09:57 75 18 101/69 96 07/17/19 09:42 83 18 106/54 L 97 07/17/19 09:26 36.6 C 89 18 110/64 97 07/17/19 08:27 36.6 C 68 18 128/76 100 07/17/19 07:00 36.4 C L 72 18 127/81 99 07/17/19 05:07 103/64 07/17/19 04:19 36.4 C L 60 20 92/58 L 98 Laboratory Results Laboratory Results - last 24 hr 07/17/19 07/17/19 07/17/19 08:02 08:02 08:09 Hgb 11.1 L Hct 34.0 L Sodium 138 Potassium 4.0 Chloride 106 Carbon Dioxide 24 Anion Gap 8.0 BUN 12 Creatinine 1.60 H D Est Cr Clr Drug Dosing 46.5 Est GFR ( Amer) 53.9 Est GFR (Non-Af Amer) 46.5 BUN/Creatinine Ratio 7.8 L Glucose 126 H POC Glucose 84 Calcium 8.9 Magnesium 1.8 Medications Administered Current Inpatient Medications Acetaminophen (Tylenol) 650 mg PO Q4H PRN PRN Reason: Pain or Fever Stop: 08/14/19 17:24 Last Admin: 07/17/19 10:22 Dose: 650 mg Documented by: Al Hydrox/Mg Hydrox/Simethicone (Maalox Max) 30 ml PO Q6H PRN PRN Reason: Indigestion Stop: 08/15/19 19:55 Last Admin: 07/17/19 11:21 Dose: 30 ml Documented by: Atorvastatin Calcium (Lipitor) 40 mg PO HS TRISTA Stop: 08/14/19 20:59 Last Admin: 07/16/19 20:55 Dose: 40 mg Documented by: Sodium Chloride (Nss) 250 mls @ 15 mls/hr IV .[id number] PRN PRN Reason: For Transfusion Stop: 08/14/19 17:24 Lactated Ringer's (Lr) 1,000 mls @ 80 mls/hr IV .[id number] [facility] Stop: 07/18/19 02:59 Latanoprost (Xalatan Oph) 1 drops OPB HS [facility] Stop: 08/14/19 20:59 Last Admin: 07/16/19 20:56 Dose: 1 drops Documented by: Metoprolol Tartrate (Lopressor) 37.5 mg PO BID [facility] Stop: 08/15/19 20:59 Last Admin: 07/17/19 10:20 Dose: 37.5 mg Documented by: Metoprolol Tartrate (Lopressor) 5 mg IV Q6 PRN PRN Reason: HR> 100 Stop: 08/16/19 17:59 Ondansetron HCl (Zofran) 4 mg IV Q6H PRN PRN Reason: Nausea Stop: 08/14/19 17:24 Pantoprazole Sodium (Protonix) 40 mg PO BID [facility] Stop: 08/16/19 20:59 Tramadol HCl (Ultram) 25 - 50 mg PO Q4H PRN PRN Reason: Pain Stop: 08/15/19 01:25 Last Admin: 07/16/19 18:08 Dose: 50 mg Documented by:
[2019-07-17] MEDS: WARFARIN SOD 2.5 MG TAB PO SCH (15:58)
--- NOTE | 2019-07-17 16:45 | Gastroenterology Progress Note ---
Date of Service July 17, 2019 Subjective See EGD note for findings. He has persistent erythema of mucosa of bulb, as well as multiple punctate red spts in the duodenum. The lack of improvement or change in endoscopic appearance suggests that these red salguero are AVM's. Presumably, this is the cause of recent bleeding episode. Of note, he describes a prior history of AVM bleeding; he had told me on his previous admission that he was treated for this in [place] or [facility], but we were unable to locate these records during his prior admission. I have asked our clerical staff to again contact the half-way to see if any records documenting this history may be available. Importantly, he has no evidence of active or ongoing bleed - there was no evidence of active bleeding seen on scope today, and his hgb and VS have remained stable. A bleeding scan was considered to help confirm the source of bleeding, but is not likely to be helpful in this context. He has no other features to suggest Osler Rahman Rendu - he denies FH of similar sypmtoms, has no mucosal telangiectasias, and denies recurrent episodes of epistaxis. I have recommended that he undergo a colonoscopy as an outpt, as previously suggested, to confirm resolution of his previously seen mesenteric ischemia. I would also consder VCE as an outpt, to look for AVM disease in the small intestine. This should be arranged via his half-way health care provider. I discussed the high probabilty of recurrent GI bleeding with pt if anti-coagulation is started. Unfortunately, I have no way to mitigate this risk - his AVM's appear too extensive, and too multiple, for ablation to be beneficial. He is aware of the risk of GI bleeding if anticoagulation is resumed; this was discussed in great detail with pt. He should be maintained on iron and folic acid as an outpt, and he should have regular surveilance CBC's through his half-way health care provider. Please call with questions. Results & Data Vital Signs (Past 12 Hours) Vital Signs Temp Pulse Resp BP BP Pulse Ox 07/17/19 14:45 36.8 C 78 18 122/74 98 07/17/19 10:52 36.6 C 71 16 134/77 100 07/17/19 10:16 36.4 C L 83 18 132/80 99 07/17/19 09:57 75 18 101/69 96 07/17/19 09:42 83 18 106/54 L 97 07/17/19 09:26 36.6 C 89 18 110/64 97 07/17/19 08:27 36.6 C 68 18 128/76 100 07/17/19 07:00 36.4 C L 72 18 127/81 99 07/17/19 05:07 103/64
[2019-07-17] MEDS: PANTOprazole 40 MG TAB PO SCH (20:39)
[2019-07-17] MEDS: ATORVASTATIN 40 MG TAB PO SCH (20:39)
[2019-07-17] MEDS: LATANOPROST 0.005% OP SOLN 2.5 ML BTL OPB SCH (20:41)
[2019-07-18 07:37] LABS: Hematocrit (blood only) 31.3 % (42-52); Hemoglobin 10.1 g/dL (14.0-18.0)
[2019-07-18] MEDS: PANTOprazole 40 MG TAB PO SCH ×2 (07:40→21:01)
[2019-07-18] MEDS: METOPROLOL TARTRATE 25 MG TAB PO SCH ×2 (07:40→21:01)
[2019-07-18 07:43] LABS: INR 1.2 (0.9-1.1); Prothrombin Time 12.3 Seconds (9.0-12.0)
[2019-07-18] MEDS: ACETAMINOPHEN 325 MG TAB PO PRN ×2 (07:44→15:58)
[2019-07-18 08:19] LABS: BUN Creatinine Ratio 10.7 (10-20); Calcium 8.8 mg/dl (8.5-10.1); Creatinine Clr Calc Pharmacy 52.4 ml/min; Est GFR (African American) 62.2; Est GFR (Non-African American) 53.7; Potassium 4.7 mmol/L (3.5-5.1)
--- NOTE | 2019-07-18 12:51 | Hospitalist Progress Note ---
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 recurrent admission with anemia /GI bleed pt remains high risk for GI bleeding with anticoagulation appreciate input from GI recommends out pt colonosopy , and possible Video capsule study will need to be co ordinated with fci administration /Physician at present pt needs to be continued with coumadin given severe mitral valve regurgitation /dilated left atrium /high risk for embolic CVA long discussion with pt by myself and multiple speciality ( GI /Cardiology ) - given the risk of embolic CVA , Coumadin will be continued dose to titrated to keep INR in lower range 2-2.5 periodic lab draw to assess anemia and transfuse as indicated , given no underlying hx of CAD , goal for tx will be hb < 7 (2) Atrial fibrillation: Chronic AF.in a setting of severe valvular heart disease /with significant mitral valve prolapse /significant mitral regurgitation/dilated left atrium noted in recent echo appreciate input from Cardiology chronic atrial fibrillation which has been treated with rate control. recommends to cont Metoprolol /dose increased to 37.5 mg BID coumadin resumed risk of bleeding vs benefit of stroke prevention discussed with detail with pt SEVERE MITRAL REGURGITATION WITH LEFT ATRIAL DILATATION noted in ECHO /chronic issue - pt is not symptomatic yet form MR : no evidence of CHF /orthopena /pulm HTN -cor pulmonale in future pt will need Cardiac work up for Mitral valve replacement in future - Cardiac cath /CT surgery follow up -will update Senior Living Physician to co ordinate CONOR ( ACUTE KIDNEY INJURY ) Cr elevated form baseline improved after IVF : 1.6-> 1.4 ( baseline 1.2 with stage 3 CKD ) not on any diuretics avoid NSAID's contrast repeat BMP in AM (3) DVT prophylaxis: coumadin resumed (4) Discharge planning issues: Anticipated return to [facility] under care of medical team there. Subjective no episode of GI bleed no melena or Hematochezia /no coffee ground emesis no SOB , no cough no orthopnea vitals remain stable Physical Exam Constitutional: well developed and well nourished; no acute distress Eyes: PERRL, conjunctivae normal, anicteric sclerae ENMT: external ear and nose normal, oropharynx normal Neck: normal visual inspection and trachea midline Respiratory: normal respiratory effort, lungs clear to auscultation normal respiratory effort; no respiratory distress Auscultation: lungs clear to auscultation bilaterally Cardiovascular: RRR, no murmur, no edema Rate/Rhythm: + irregularly irregular; + abnormal rate and + abnormal rhythm Heart Sounds: + murmur (II/ systolic murmur at apex); no gallop and no cardiac rub Vessels: no JVD Extremities: no calf tenderness and no edema Gastrointestinal (Abdomen): normal bowel sounds, soft, nontender, no hepatosplenomegaly Inspection/Auscultation: normal bowel sounds Percus anya/Palpation: + abdomen tender (generalized pain w/ palpation) and abdomen soft; no guarding and abdomen not rigid Musculoskeletal: no cyanosis or clubbing, extremities motor strength 5/5 Spine: no pain with cervical ROM Skin: no rashes, warm and dry Neurologic: PERRL, EOMI, accommodation nl, no face palsy, no dysarthria moves all extremities Psychiatric: Orientation: alert and oriented x 3 Affect: euthymic affect Results & Data Vital Signs (Past 12 Hours) Vital Signs Temp Pulse Resp BP Pulse Ox 07/18/19 12:48 37.3 C 82 18 111/71 99 07/18/19 07:42 36.4 C L 67 20 111/67 100 07/18/19 04:24 36.8 C 67 20 103/56 L 98
[2019-07-18] MEDS: FOLIC ACID 1 MG TAB PO SCH (14:30)
[2019-07-18] MEDS: WARFARIN SOD 2.5 MG TAB PO SCH (16:01)
[2019-07-18] MEDS ORDERED: LACTATED RINGER'S 1,000 ML IV SCH (16:30)
[2019-07-18] MEDS: ATORVASTATIN 40 MG TAB PO SCH (20:57)
[2019-07-18] MEDS: LATANOPROST 0.005% OP SOLN 2.5 ML BTL OPB SCH (21:02)
[2019-07-18] MEDS: TRAMADOL HCL 50 MG TABLET PO PRN (23:39)
[2019-07-19 06:40] LABS: Hemoglobin 10.2 g/dL (14.0-18.0)
[2019-07-19 07:07] LABS: Creatinine Clr Calc Pharmacy 56.3 ml/min; Est GFR (Non-African American) 58.6
[2019-07-19] MEDS: METOPROLOL TARTRATE 25 MG TAB PO SCH (08:04)
[2019-07-19] MEDS: PANTOprazole 40 MG TAB PO SCH (08:06)
[2019-07-19] MEDS: FOLIC ACID 1 MG TAB PO SCH (08:06)
[2019-07-19] MEDS: ACETAMINOPHEN 325 MG TAB PO PRN (08:13)
--- NOTE | 2019-07-19 08:13 | Hospitalist Progress Note ---
Date of Service July 19, 2019 Subjective AM Lab reviewed : Hb 10.2 today with improvement of renal function Cr 1.32 after IV hydration medially stable to be discharged to [facility] today Moira Lord MD Results & Data Vital Signs (Past 12 Hours) Vital Signs Temp Pulse Pulse Resp BP Pulse Ox 07/19/19 07:21 36.6 C 58 L 18 131/82 100 07/19/19 03:44 36.7 C 68 16 120/76 99 07/19/19 01:03 81 07/18/19 22:51 36.8 C 88 20 108/68 98
[2019-07-19 08:26] LABS: INR 1.1 (0.9-1.1); Prothrombin Time 11.6 Seconds (9.0-12.0)
--- NOTE | 2019-07-19 08:39 | Communication Note ---
Date of Service: July 19, 2019 Pt was seen and evaluated, chart reviewed. Concern this AM about urinary frequency. No dysuria or hematuria. No acute GI concerns. Bowels are moving. Semi-formed brown stools. No further black stools. Has not had any BRB in stools. No UGI symptoms. Tolerating breakfast. No fever, chills, CP, SOB. We did receive some records from OSH. Reviewed. He has had two major prior episodes of GIB - both in 2010. At that time he had initially presented w/ fatigue and heme + stools w/ HGB around 8. He underwent EGD/Colonoscopy at facility unknown to me with a reported negative exam. He was transfused small volume RBCs and discharged back to care home. Back at care home he suffered syncopal event and [place] [facility] [place] He was transfused 15 units RBC and set up for repeat EGD which showed AVMs of gastric antrum and duodenum. Nonbleeding. He underwent a nuc med bleeding scan which showed active bleeding in the mid/distal small bowel. He underwent repeat EGD which showed oozing from a prior endoclip site and this was cauterized. Again note was made of AVM. He apparently underwent VCE, double balloon enteroscopy. 58 year old male with obscure GIB, history of GIB in past on coumadin. Recent EGD/Colon reviewed. Agree w/ continued work up as outpatient. To consider VCE, repeat colonoscopy. I have discussed the patient's management with Deborah. Please refer to the nurse practitioner's note for the documented findings and plan of care.
[2019-07-19] MEDS ORDERED: TAMSULOSIN HCL 0.4 MG CAP PO ONE (10:19)
--- NOTE | 2019-07-19 12:21 | Hospitalist Progress Note ---
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 recurrent admission with anemia /GI bleed pt remains high risk for GI bleeding with anticoagulation appreciate input from GI recommends out pt colonosopy , and possible Video capsule study will need to be co ordinated with skilled nursing administration /Physician at present pt needs to be continued with coumadin given severe mitral valve regurgitation /dilated left atrium /high risk for embolic CVA long discussion with pt by myself and multiple speciality ( GI /Cardiology ) - given the risk of embolic CVA , Coumadin will be continued dose to titrated to keep INR in lower range 2-2.5 periodic lab draw to assess anemia and transfuse as indicated , given no underlying hx of CAD , goal for tx will be hb < 7 pt is stable to be discharged to [facility] spoke with inside contractor sales Nurse at [facility] ( Dr Geronimo is off till monday07/22/19 ) updated regarding discharge instruction and follow ups pt will need close monitoring for bleeding risk with periodic lab draw (2) Atrial fibrillation: Chronic AF.in a setting of severe valvular heart disease /with significant mitral valve prolapse /significant mitral regurgitation/dilated left atrium noted in recent echo appreciate input from Cardiology chronic atrial fibrillation which has been treated with rate control. recommends to cont Metoprolol /dose increased to 37.5 mg BID coumadin resumed risk of bleeding vs benefit of stroke prevention discussed with detail with pt SEVERE MITRAL REGURGITATION WITH LEFT ATRIAL DILATATION noted in ECHO /chronic issue - pt is not symptomatic yet form MR : no evidence of CHF /orthopena /pulm HTN -cor pulmonale in future pt will need Cardiac work up for Mitral valve replacement in future - Cardiac cath /CT surgery follow up -will update Half-Way Physician to co ordinate Medical clinic at [facility] updated CONOR ( ACUTE KIDNEY INJURY ) resolved, cr at baseline after IV hydration avoid NSAID's contrast (3) DVT prophylaxis: coumadin resumed (4) Discharge planning issues: pt is discharged to [facility] under care of medical team there. Subjective no further episode of GI bleed no complain of SOB no cough no fever or chills Physical Exam Constitutional: well developed and well nourished; no acute distress Eyes: PERRL, conjunctivae normal, anicteric sclerae ENMT: external ear and nose normal, oropharynx normal Neck: normal visual inspection and trachea midline Respiratory: normal respiratory effort, lungs clear to auscultation normal respiratory effort; no respiratory distress Auscultation: lungs clear to auscultation bilaterally Cardiovascular: RRR, no murmur, no edema Rate/Rhythm: + irregularly irregular; + abnormal rate and + abnormal rhythm Heart Sounds: + murmur (I I/ systolic murmur at apex); no gallop and no cardiac rub Vessels: no JVD Extremities: no calf tenderness and no edema Gastrointestinal (Abdomen): normal bowel sounds, soft, nontender, no hepatosplenomegaly Inspection/Auscultation: normal bowel sounds Percussion/Palpation: + abdomen tender (generalized pain w/ palpation) and abdomen soft; no guarding and abdomen not rigid Musculoskeletal: no cyanosis or clubbing, extremities motor strength 5/5 Spine: no pain with cervical ROM Skin: no rashes, warm and dry Neurologic: PERRL, EOMI, accommodation nl, no face palsy, no dysarthria moves all extremities Psychiatric: Orientation: alert and oriented x 3 Affect: euthymic affect Results & Data Vital Signs (Past 12 Hours) Vital Signs Temp Pulse Pulse Resp BP BP Pulse Ox 07/19/19 11:51 36.5 C 70 18 141/88 H 98 07/19/19 11:30 36.6 C 58 L 18 109/65 131/82 100 07/19/19 07:21 36.6 C 58 L 18 131/82 100 07/19/19 03:44 36.7 C 68 16 120/76 99 07/19/19 01:03 81
--- NOTE | 2019-07-19 12:49 | Discharge Summary ---
Date of Service July 19, 2019 Admission HPI Per Admitting Provider 58 year old male with afib on coumadin presenting with anemia, dark stools. coumadin held made NPO for diagnostic EGD Notes last dark stool was about 48 hours ago No BM at all yesterday VSS, HGB improving Principal Diagnosis GI BLEED /AVM( ARTERIOVENOUS MALFORMATION ) OF STOMACH CHRONIC AFIB SEVERE MITRAL VALVE REGURGITATION Discharge Exam Constitutional well developed and well nourished; no acute distress Eyes PERRL, conjunctivae normal, anicteric sclerae ENMT external ear and nose normal, oropharynx normal Neck normal visual inspection and trachea midline Respiratory normal respiratory effort, lungs clear to auscultation normal respiratory effort; no respiratory distress Auscultation: lungs clear to auscultation bilaterally Cardiovascular RRR, no murmur, no edema Rate/Rhythm: + irregularly irregular; + abnormal rate and + abnormal rhythm Heart Sounds: + murmur (II/ systolic murmur at apex); no gallop and no cardiac rub Vessels: no JVD Extremities: no calf tenderness and no edema Gastrointestinal (Abdomen) normal bowel sounds, soft, nontender, no hepatosplenomegaly Inspection/Auscultation: normal bowel sounds Percussion/Palpation: + abdomen tender (generalized pain w/ palpation) and abdomen soft; no guarding and abdomen not rigid Musculoskeletal no cyanosis or clubbing, extremities motor strength 5/5 Spine: no pain with cervical ROM Skin no rashes, warm and dry Neurologic PERRL, EOMI, accommodation nl, no face palsy, no dysarthria moves all extremities Psychiatric Orientation: alert and oriented x 3 Affect: euthymic affect Discharge Data Allergies Allergy/AdvReac Type Severity Reaction Status Date / Time No Known Allergies Allergy Unverified 07/16/19 19:56 Consultations 07/15/19 14:29 ED Decision to Admit Stat 07/15/19 17:25 Consult Cardiology Routine Consult Case Management - Discharge Planning Routine Consult Gastroenterology Routine Procedures Performed Operation Date: 07/16/19 15:45 <No data on this case meets the specified criteria> Operation Date: 07/17/19 16:00 Actual Procedures p EGD Biopsy Cytology - Irphan E Gaslightwala Ordered Studies 07/15/19 12:23 CT abd pelvis IV con only Stat CT angio chest PE protocol Stat Hospital Course (1) GI bleed: no further episode of GI Bleed H&H remains stable 10.2 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 recurrent admission with anemia /GI bleed pt remains high risk for GI bleeding with anticoagulation appreciate input from GI recommends out pt colonosopy , and possible Video capsule study will need to be co ordinated with senior care administration /Physician at present pt needs to be continued with coumadin given severe mitral valve regurgitation /dilated left atrium /high risk for embolic CVA long discussion with pt by myself and multiple speciality ( GI /Cardiology ) - given the risk of embolic CVA , Coumadin will be continued dose to titrated to keep INR in lower range 2-2.5 periodic lab draw to assess anemia and transfuse as indicated , given no underlying hx of CAD , goal for tx will be hb < 7 pt is stable to be discharged to [facility] spoke with occupational therapist Nurse at [facility] ( Dr Geronimo is off till monday07/22/19 ) updated regarding discharge instruction and follow ups pt will need close monitoring for bleeding risk with periodic lab draw (2) Atrial fibrillation: Chronic AF.in a setting of severe valvular heart disease /with significant mitral valve prolapse /significant mitral regurgitation/dilated left atrium noted in recent echo appreciate input from Cardiology chronic atrial fibrillation which has been treated with rate control. recommends to cont Metoprolol /dose increased to 37.5 mg BID coumadin resumed risk of bleeding vs benefit of stroke prevention discussed with detail with pt SEVERE MITRAL REGURGITATION WITH LEFT ATRIAL DILATATION noted in ECHO /chronic issue - pt is not symptomatic yet form MR : no evidence of CHF /orthopena /pulm HTN -cor pulmonale in future pt will need Cardiac work up for Mitral valve replacement in future - Cardiac cath /CT surgery follow up -will update Snf Physician to co ordinate Medical clinic at [facility] updated CONOR ( ACUTE KIDNEY INJURY ) resolved, cr at baseline after IV hydration avoid NSAID's contrast (3) DVT prophylaxis: coumadin resumed (4) Discharge planning issues: pt is discharged to [facility] under care of medical team there. Total Time Total Time Spent Total Time Spent (In Minutes): approx 45 mins Total Time Includes: Examination of the Patient, Discharge Planning, Medication Reconciliation and Communication With Other Providers Discharge Plan Discharge Items [facility]position[facility] Reason For Visit: MELENA Discharge Diagnosis: GI BLEED /AVM( ARTERIOVENOUS MALFORMATION ) OF STOMACH CHRONIC AFIB SEVERE MITRAL VALVE REGURGITATION Condition on Discharge: Good Activity: As commented below Activity Comment: TOLERATED Non-emergency contact: Primary Care Provider Call non-emergency contact if: you have any medication questions Follow-up/Referrals: Rodger CASTILLO [Primary Care Provider] - Diet: Heart Healthy Addtl Attending Provider Instructions: NEED TO HAVE COLONOSCOPY SCHEDULED -CONCERN FOR AVM IN COLON VIDEO CAPSULE STUDY FOR SMALL INTESTINE AVM , PATIENT REMAINS VERY HIGH RISK FOR GI BLEED FOLLOW : CBC AND PT /INR IN NEXT 2 DAY THEN WEEKLY GOAL INR 2-2.5 ( TO PREVENT GI BLEED ) WILL NEED PRBC TRANSFUSION FOR HB < 7 OR WITH SYMPTOMS OF TACHYCARDIA /HYPOTENSION /DIZZY SPELL NEEDS CARDIOLOGY WORK UP FOR SEVERE MITRAL VALVE REGURGITATION AND POSSIBLE VALVE REPLACEMENT DO NOT TAKE ASPIRIN , ADVIL, MOTRIN , IBUPROPHEN, ALEVE , NAPROXEN -AVOID ALL NSAID'S VERY HIGH RISK FOR BLEEDING Pending Studies at Discharge: Yes Studies:: FOLLOW : CBC AND PT /INR IN NEXT 2 DAY THEN WEEKLY LAB: H&H AND INR GOAL INR 2-2.5 ( TO PREVENT GI BLEED ) WILL NEED PRBC TRANSFUSION FOR HB < 7 OR WITH SYMPTOMS OF TACHYCARDIA /HYPOTENSION /DIZZY SPELL Stand-Alone Forms: Call Back Authorization, [facility] Skilled Items Patient informed of condition?: Yes Discharge Level of Care: Other Communicable Disease: No Discharge Prognosis: Stable Lines: None Urinary Catheter: No Medications and DC Order Prescriptions: New warfarin [Coumadin] 2.5 mg Tablet 2.5 mg PO DAILY 30 Days Qty: 30 RF: 0 folic acid 1 mg Tablet 1 mg PO QAM 30 Days Qty: 30 RF: 0 ferrous fumarate 456 mg (150 mg iron) tablet 456 mg PO DAILY Qty: 30 RF: 0 tamsulosin [Flomax] 0.4 mg capsule 0.4 mg PO HS Qty: 30 RF: 0 Continued latanoprost 0.005 % Drops 1 drp OPB HS RF: 0 pantoprazole [Protonix] 40 mg Tablet,Delayed Release (Dr/Ec) 40 mg PO BID RF: 0 nicotine 21 mg/24 hr Patch 24 Hour 1 patch TRANSDERMAL DAILY RF: 0 loratadine 10 mg Tablet 10 mg PO DAILY RF: 0 atorvastatin 40 mg tablet 40 mg PO HS RF: 0 acetaminophen [Mapap (acetaminophen)] 325 mg tablet 650 mg PO TID PRN (Reason: pain) RF: 0 docusate sodium 250 mg Capsule 250 mg PO BID RF: 0 Changed metoprolol tartrate [Lopressor] 50 mg Tablet 37.5 mg PO BID Qty: 0 RF: 0 Discharge Orders: Discharge Order (Routine); Ordered 07/19/19 Ordered By: Moira Lord Admission Data Admit Date/Time: 07/16/19 20:46 Attending Provider: Moira Lord Admit Provider: Sha Moreau Primary Care Provider: Rodger CASTILLO Other Providers: Sha Moreau ; Jacinto Gillette ; Jayson Escobedo Other Interventions: Discharge Summary Assessment (RN) Last Done: 07/19/19 11:30 DC Date/Time DO NOT enter until pt leaves facility: 07/19/19 12:34
== END 2019-07-19 12:34 | DRG 379 ==
LOC: ED 11:21 → 2W 11:21 → SUATTDRO 15:57 → 2W 17:03 → SUATTDRO 07-16 20:46